=== PATIENT | male | born 1955 | race Two or more races ===

== ENCOUNTER → 2020-07-28 10:30 | Outpatient (BNVA) | payer MEDICAID, SELFPAY | PROVIDERS: PCP Student in an Organized Health Care Education/Training Program; Visit Provider Anesthesiology | DX: M96.1 Postlaminectomy syndrome, not elsewhere classified (principal); M50.30 Other cervical disc degeneration, unspecified cervical region; G58.8 Other specified mononeuropathies; G89.4 Chronic pain syndrome; M47.812 Spondylosis without myelopathy or radiculopathy, cervical region | CPT/HCPCS: 99212 ==

== ENCOUNTER 2020-08-20 09:36 | Outpatient (REF) | payer MEDICAID, SELFPAY ==
[2020-08-20 11:15] LABS: Alanine Aminotransferase 31 U/L (0-40); Albumin Level 4.1 g/dL (3.5-5.0); Alkaline Phosphatase 48 U/L (39-117); Anion Gap 11 (12-20); Aspartate Amino Transferase 28 U/L (5-37); Bilirubin Direct 0.2 mg/dL (0.0-0.5); Bilirubin Total 0.6 mg/dL (0.0-1.0); Blood Urea Nitrogen 28 mg/dL (9-16); Calcium 9.2 mg/dL (8.4-10.2); Carbon Dioxide 29 mmol/L (22-29); Chloride 103 mmol/L (96-108); Cholesterol 202 mg/dL; Estimated Glomerular Filt Rate 50; Glucose Random 101 mg/dL (60-115); HDL Cholesterol 81 mg/dL; LDL Cholesterol Calculated 108 mg/dl; Potassium 4.3 mmol/l (3.3-5.1); Sodium 139 mmol/L (135-145); Total Protein 7.2 g/dL (6.5-8.0); Triglycerides 67 mg/dL
[2020-08-20 11:34] LABS: Vitamin D 25-OH Total 19.9 ng/mL (>30)
== END 2020-08-20 09:37 | disposition home or self-care (01) ==
LOC: HO.LAB 09:36
PROVIDERS: Absent Provider Student in an Organized Health Care Education/Training Program; PCP Student in an Organized Health Care Education/Training Program; Visit Provider Internal Medicine
DX: I10 Essential (primary) hypertension (principal); Z20.828 Contact with and (suspected) exposure to other viral communicable diseases
CPT/HCPCS: 80048; 80061; 80076; 82306; C9803; U0003

== ENCOUNTER 2020-09-07 05:36 | Outpatient (REF) | payer MEDICARE, MEDICAID, SELFPAY ==
--- NOTE | 2020-09-07 08:46 | FL_ITS ---
EXAMINATION: XR FLUOROSCOPY WITH IMAGES CLINICAL INFORMATION: M96.1 - Postlaminectomy syndrome, not elsewhere classified COMPARISON: MRI cervical spine 08/12/2019 TECHNIQUE: Fluoroscopy performed by Aicha Renteria NP. Fluoroscopy time: 1.1 minutes DAP: 4.3 Gycm2 Images: 6 FINDINGS: There are bilateral spinal needles overlying outer aspect of the mid to lower cervical neural foramina, 3 on left and 2 (or 3) on right. There is variable contrast in the nerve sheaths and paraspinal soft tissues. There is some transforaminal epidural extension. No visible vascular communication. There is hardware lower cervical spine consistent with discectomy as noted on MRI. FL/FL guidance in treatment room IMPRESSION: Fluoroscopy for pain management procedures.
== END 2020-09-07 05:37 | disposition home or self-care (01) ==
LOC: HO.RADIR 05:36
PROVIDERS: Visit Provider Anesthesiology
DX: M96.1 Postlaminectomy syndrome, not elsewhere classified (principal); M50.30 Other cervical disc degeneration, unspecified cervical region; G58.8 Other specified mononeuropathies; G89.4 Chronic pain syndrome; M47.812 Spondylosis without myelopathy or radiculopathy, cervical region
CPT/HCPCS: 64490; 64491; J3300; Q9967

== ENCOUNTER 2020-10-25 09:34 | Outpatient (REF) | payer MEDICARE, MEDICAID, SELFPAY | END 2020-10-25 09:35 | disposition home or self-care (01) | LOC: HO.LAB 09:34 | PROVIDERS: Visit Provider Internal Medicine | DX: Z20.822 Contact with and (suspected) exposure to COVID-19 (principal) | CPT/HCPCS: 36415; C9803; U0003; U0005 ==

== ENCOUNTER 2022-10-12 10:08 | Outpatient (REF) | payer MEDICARE, MEDICAID, SELFPAY ==
--- NOTE | ~2022-10-12 | XR_ITS ---
EXAMINATION: XR CERVICAL SPINE CLINICAL INFORMATION: Chronic neck pain worsening past month. No known trauma. COMPARISON: MR cervical spine 08/12/2019 TECHNIQUE: Cervical spine is imaged in 7 views including oblique projections. FINDINGS: There has been prior anterior cervical discectomy with fusion and hardware C5-C6. Hardware is intact. No destructive process or osteolysis. No prevertebral soft tissue swelling. No cervical vertebral compression or destructive process. The odontoid appears intact. There are degenerative disc changes C4-C5 with disc narrowing and anterior and posterior spurring and mild retrolisthesis. There are also degenerative disc changes at C6-C7 with disc narrowing and vertebral spurring. Oblique views show variable foraminal spurring bilateral C4 and bilateral C5 and borderline left C6. XR/XR cervical spine 5V IMPRESSION: -Status post anterior cervical discectomy and fusion C5-C6. Hardware intact. -No destructive process or osteolysis. Prevertebral soft tissues are unremarkable. -Degenerative disc changes C4-C5 and C6-C7. Mild retrolisthesis C4-C5. -Scattered foraminal spurring. Bilateral foraminal spurring.
== END 2022-10-12 10:09 | disposition home or self-care (01) ==
LOC: HO.XRAY 10:08
PROVIDERS: PCP Student in an Organized Health Care Education/Training Program; Visit Provider General Practice
DX: M54.2 Cervicalgia (principal)
CPT/HCPCS: 72050

== ENCOUNTER 2023-04-20 06:04 | Outpatient (REF) | payer MEDICARE, MEDICAID, SELFPAY | END 2023-04-20 06:05 | disposition home or self-care (01) | LOC: HO.HOSX 06:04 | PROVIDERS: Visit Provider Physician Assistant | DX: Z13.89 Encounter for screening for other disorder (principal) ==

== ENCOUNTER 2023-04-20 09:51 | Outpatient (REF) | payer MEDICARE, MEDICAID, SELFPAY ==
--- NOTE | ~2023-04-20 | XR_ITS ---
EXAMINATION: XR SHOULDER, RIGHT CLINICAL INFORMATION: Acute pain. COMPARISON: None available. TECHNIQUE: AP external rotation, Grashey, scapular Y, and axillary views of the right shoulder. FINDINGS: Bony alignment and mineralization are normal. There is mild osteoarthritic change of the right glenohumeral joint. The acromioclavicular and coracoclavicular intervals are normal. No fracture or dislocation is seen. There is no abnormal soft tissue calcification or foreign body. No right pneumothorax is seen. XR/XR shoulder RT min 2V IMPRESSION: 1. There is mild osteoarthritic change of the right glenohumeral joint. 2. No fracture or dislocation is seen.
== END 2023-04-20 09:52 | disposition home or self-care (01) ==
LOC: HO.HMGCX 09:51
PROVIDERS: PCP Student in an Organized Health Care Education/Training Program; Visit Provider Internal Medicine
DX: M25.511 Pain in right shoulder (principal)
CPT/HCPCS: 73030

== ENCOUNTER 2023-05-31 12:09 | Outpatient (REF) | payer MEDICARE, MEDICAID, SELFPAY ==
[2023-05-31 13:55] LABS: Alanine Aminotransferase 23 U/L (0-40); Albumin Level 4.2 g/dL (3.5-5.0); Alkaline Phosphatase 42 U/L (39-117); Anion Gap 13 (12-20); Aspartate Amino Transferase 25 U/L (5-37); Bilirubin Total 0.5 mg/dL (0.0-1.0); Blood Urea Nitrogen 18 mg/dL (9-16); Calcium 9.7 mg/dL (8.4-10.2); Carbon Dioxide 26 mmol/L (22-29); Chloride 106 mmol/L (96-108); Estimated Glomerular Filt Rate 60; Glucose Random 96 mg/dL (60-115); Potassium 4.4 mmol/L (3.3-5.1); Sodium 141 mmol/L (135-145); Total Protein 7.6 g/dL (6.5-8.0)
== END 2023-05-31 12:10 | disposition home or self-care (01) ==
LOC: HO.HHCL 12:09
PROVIDERS: Visit Provider Student in an Organized Health Care Education/Training Program
DX: R79.89 Other specified abnormal findings of blood chemistry (principal)
CPT/HCPCS: 36415; 80053

== ENCOUNTER 2023-07-13 13:02 | Outpatient (REF) | payer MEDICARE, MEDICAID, SELFPAY ==
--- NOTE | ~2023-07-13 | MR_ITS ---
EXAMINATION: MR SHOULDER WITHOUT CONTRAST, RIGHT CLINICAL INFORMATION: Chronic worsening pain in the right arm below the shoulder. Rule out tear or cyst. COMPARISON: Radiograph dated 04/12/2023. TECHNIQUE: MRI of the shoulder without contrast was performed on a high-field scanner. FINDINGS: ROTATOR CUFF: A full-thickness tear of the supraspinatus tendon measures 3 cm AP with medial retraction of torn fibers by 4 cm between the level of the glenoid fossa and greater tuberosity. The small insertional subscapularis tendon tear measures approximately 6 x 6 mm in area with mild associated tendinosis. There is a small insertional partial tear of the cephalad fibers of the subscapularis tendon measuring approximately 6 x 6 mm in area. Mild subscapularis and infraspinatus tendinosis. There is mild supraspinatus muscle atrophy and grade 1 fatty replacement. BICEPS: Normal. CORACOACROMIAL ARCH: The undersurface of the acromion is hooked with an anterior subacromial spur. Moderate acromioclavicular osteoarthritis. LABRUM/CAPSULE: There is a small focal undersurface tear of the posterosuperior labrum between the 10 o'clock position and 9 o'clock position. A subtle tear is also suspected between the anteroinferior 4 o'clock position and inferior 6 o'clock position with a small 3 mm paralabral cyst. There is capsular thickening and edema signal at the axillary pouch involving the inferior glenohumeral ligament. GLENOHUMERAL JOINT/MARROW: No fractures. Tiny glenoid osteophytes. Mild focal chondral thinning is present at the glenoid rim posterosuperiorly. There is cortical irregularity at the greater tuberosity posterosuperiorly. Small joint effusion. MR/MR shoulder RT wo con IMPRESSION: 1. A 3 x 4 cm full-thickness insertional tear of the supraspinatus tendon with mild muscle atrophy. 2. Small 6 x 6 mm insertional partial tear of the cephalad fibers of the subscapularis tendon. 3. Hooked acromial undersurface with an anterior subacromial spur. 4. Moderate acromioclavicular and minimal glenohumeral osteoarthritis. 5. Capsular thickening and edema at the axillary pouch. This is not specific but can be seen with adhesive capsulitis provided the appropriate clinical suspicion.
== END 2023-07-13 13:03 | disposition home or self-care (01) ==
LOC: HO.MRI 13:02
PROVIDERS: PCP Student in an Organized Health Care Education/Training Program; Visit Provider Student in an Organized Health Care Education/Training Program
DX: M79.601 Pain in right arm (principal)
CPT/HCPCS: 73221

== ENCOUNTER 2023-08-01 09:44 | Outpatient (AMB) | payer MEDICARE, SELFPAY ==
--- NOTE | 2023-08-01 09:58 | A.OFFVIS_ITS ---
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 States he has been experiencing bicep pain for about 1 month. No injury or fall he can recall. States he is limited ROM and affects his daily living. Seen with his PCP who referred hm to wound care specialist. Patient denies shoulder pain, numbness or tingling in fingers. States his shoulder is fine. Patient also had a shoulder MRI. Allergies No Known Allergies Allergy (Verified 08/01/23 10:05) HPI HPI Comments History of Present Illness Details 1 month of acute right arm pain. No fall s. No inciting injuries. Right handed. Unemployed. Denies any pain prior to onset. Limited ROM. No numbness. MRI already done, shows full thickness supraspinatus tear. Treatment done so far: tylenol no PT or injections yet ROS Poor balance Lives alone. Drives. [facility] Medical History (Updated 08/01/23 @ 10:47 by Vannesa De La Rosa MD) DJD of right shoulder Complete rotator cuff tear or rupture of right shoulder, not specified as traumatic Lymph node enlargement Arthropathy of cervical facet joint Chronic pain syndrome Other specified mononeuropathies Degeneration, intervertebral disc, cervical Postlaminectomy syndrome, cervical Social History (Updated 08/01/23 @ 10:07 by Angeles Rangel [facility]) Current occupational status: disabled Current occupation: right hand Review of Systems Const All systems reviewed & are unremarkable except as noted in HPI and below Physical Exam Vital Signs: BMI result Body Mass Index 34.5 Constitutional: Patient appears to be in no acute distress, well nourished and well developed. MSK: Inspection reveals appropriate head and neck positioning. No pain with palpation over the neck musculature. Cervical ROM was full. Spurling's sign negative. Limited right shoulder a abduction and flexion up to 60 degrees only No ligamentous laxity or crepitance. No increased effusion. Empty can test is positive right. Drop arm test is negative. Speed's test is negative. Neer's test is positive right. Hawkin's test is positive. Strength is 5/5 in all muscle groups tested. No increased tone noted. Neurological: Neurologic examination of the upper and lower extremities was nonfocal with intact sensation, muscle stretch reflexes and without focal motor deficits . Marquez?s negative bilaterally. Gait is non-antalgic without loss of balance. Office Procedures Joint Injection/Drain Joint Injection/Drain Details: Consent was obtained. The distal, lateral, and posterior edges of the right acromion are palpated. Area is cleansed with betadine solution. A 27 gauge needl e is inserted just inferior to the posterolateral edge of the acromion. The needle is directed toward the opposite chest. A solution containing [40 mg] Kenalog and [3 ml] of 2% Lidocaine is injected. Patient tolerated procedure well without complications. Post-injection instructions given. Primary Site: right shoulder Injected: 40 mg of, Kenalog and with 3 mL of (2% lidocaine) Procedure: The patient tolerated the procedure well Coding 80323 - Large joint Procedure code (CPT) selection complete Results Reviewed Results Reviewed: [place] [address] Magnetic Resonance Report Signed Patient: David Joe MR#: [id number] : 1955 Acct:[id number] Age/Sex: 67 / M ADM Date: 07/13/23 Loc: HO.MRI Attending Dr: Merline Melara MD Ordering Physician: Merline Carrion MD Date of Service: 07/13/23 Procedure(s): MR shoulder RT wo con Accession Number(s): [id number] cc: Dayanna Smith MD; Merline Carrion MD~ EXAMINATION: MR SHOULDER WITHOUT CONTRAST, RIGHT CLINICAL INFORMATION: Chronic worsening pain in the right arm below the shoulder. Rule out tear or cyst. COMPARISON: Radiograph dated 04/12/2023. TECHNIQUE: MRI of the shoulder without contrast was performed on a high-field scanner. FINDINGS: ROTATOR CUFF: A full-thickness tear of the supraspinatus tendon measures 3 cm AP with medial retraction of torn fibers by 4 cm between the level of the glenoid fossa and greater tuberosity. The small insertional subscapularis tendon tear measures approximately 6 x 6 mm in area with mild associated tendinosis. There is a small insertional partial tear of the cephalad fibers of the subscapularis tendon measuring approximately 6 x 6 mm in area. Mild subscapularis and infraspinatus tendinosis. There is mild supraspinatus muscle atrophy and grade 1 fatty replacement. BICEPS: Normal. CORACOACROMIAL ARCH: The undersurface of the acromion is hooked with an anterior subacromial spur. Moderate acromioclavicular osteoarthritis. LABRUM/CAPSULE: There is a small focal undersurface tear of the posterosuperior labrum between the 10 o'clock position and 9 o'clock position. A subtle tear is also suspected between the anteroinferior 4 o'clock position and inferior 6 o'clock position with a small 3 mm paralabral cyst. There is capsular thickening and edema signal at the axillary pouch involving the inferior glenohumeral ligament. GLENOHUMERAL JOINT/MARROW: No fractures. Tiny glenoid osteophytes. Mild focal chondral thinning is present at the glenoid rim posterosuperiorly. There is cortical irregularity at the greater tuberosity posterosuperiorly. Small joint effusion. MR/MR shoulder RT wo con IMPRESSION: 1. A 3 x 4 cm full-thickness insertional tear of the supraspinatus tendon with mild muscle atrophy. 2. Small 6 x 6 mm insertional partial tear of the cephalad fibers of the subscapularis tendon. 3. Hooked acromial undersurface with an anterior subacromial spur. 4. Moderate acromioclavicular and minimal glenohumeral osteoarthritis. 5. Capsular thickening and edema at the axillary pouch. This is not specific but can be seen with adhesive capsulitis provided the appropriate clinical suspicion. [facility] [address] [place] [address] [place] [id number] XRay Report Signed Patient: David Joe MR#: [id number] : 1955 Acct:[id number] Age/Sex: 67 / M ADM Date: 04/20/23 Loc: HO.HMGCX Attending Dr: Tate Neff MD Ordering Physician: Emily Newell PA-C Date of Service: 04/20/23 Procedure(s): XR shoulder RT min 2V Accession Number(s): [id number] cc: Emily Newell PA-C~ EXAMINATION: XR SHOULDER, RIGHT CLINICAL INFORMATION: Acute pain. COMPARISON: None available. TECHNIQUE: AP external rotation, Grashey, scapular Y, and axillary views of the right shoulder. FINDINGS: Bony alignment and mineralization are normal. There is mild osteoarthritic change of the right glenohumeral joint. The acromioclavicular and coracoclavicular intervals are normal. No fracture or dislocation is seen. There is no abnormal soft tissue calcification or foreign body. No right pneumothorax is seen. XR/XR shoulder RT min 2V IMPRESSION: 1. There is mild osteoarthritic change of the right glenohumeral joint. 2. No fracture or dislocation is seen. I reviewed records from the following: Pain Management PCP Assessment & Plan Assessment & Plan (1) Complete rotator cuff tear or rupture of right shoulder, not specified as traumatic: Code(s): M75.121 - Complete rotator cuff tear or rupture of right shoulder, not specified as traumatic Qualifiers: Rotator cuff tear trauma status: nontraumatic Qualified Code(s): M75.121 - Complete rotator cuff tear or rupture of right shoulder, not specified as traumatic (2) DJD of right shoulder: Code(s): M19.011 - Primary osteoarthritis, right shoulder Qualifiers: Osteoarthritis type: primary Qualified Code(s): M19.011 - Primary osteoarthritis, right shoulder Plan Full thickness tear on right supraspinatus with arthritic changes on AC and GH. Pain is 10/10 and he would like injection for relief today. Start PT. Referring him to Dr. Dickerson to discuss surgical options. Assessment and plan discussed with patient, and patient was agreeable. All questions were answered thoroughly. Vannesa De La Rosa MD, BLAIR Board Certified, [place] [employer] and [employer] (ABPMR) Board Certified, [place] [employer] Electro[employer] (ABEM) Orders: Orders PT Evaluation and Treatment Today M19.011 - Primary osteoarthritis, right shoulder, M75.121 - Complete rotator cuff tear or rupture of right shoulder, not specified as traumatic AMB Joint Injection/Aspiration Today M19.011 - Primary osteoarthritis, right shoulder, M75.121 - Complete rotator cuff tear or rupture of right shoulder, not specified as traumatic Referrals Orthopedics Referral M19.011 - Primary osteoarthritis, right shoulder, M75.121 - Complete rotator cuff tear or rupture of right shoulder, not specified as traumatic Coding Level of Care Code New Pt Level 4 (96653) Diagnoses Nontraumatic complete tear of right rotator cuff M75.121 Rotator cuff tear trauma status: nontraumatic Primary osteoarthritis of right shoulder M19.011 Osteoarthritis type: primary CPT Codes Coding - 34773 Large joint: 74227 - Large joint ([id number])
[2023-08-01 10:01] VITALS: BMI 34.5
== END 2023-08-01 10:36 | disposition home or self-care (01) ==
PROVIDERS: PCP Student in an Organized Health Care Education/Training Program; Visit Provider Physical Medicine & Rehabilitation
DX: M75.121 Complete rotator cuff tear or rupture of right shoulder, not specified as traumatic (principal); M19.011 Primary osteoarthritis, right shoulder
CPT/HCPCS: 20610; 99204

== ENCOUNTER → 2023-08-01 09:44 | Outpatient (BNVA) | payer OTHER, SELFPAY | PROVIDERS: PCP Student in an Organized Health Care Education/Training Program; Visit Provider Physical Medicine & Rehabilitation | DX: M19.011 Primary osteoarthritis, right shoulder (principal); M75.121 Complete rotator cuff tear or rupture of right shoulder, not specified as traumatic; M96.1 Postlaminectomy syndrome, not elsewhere classified; G89.4 Chronic pain syndrome | CPT/HCPCS: 20610; 99202; J3301 ==

== ENCOUNTER 2023-08-13 11:42 | Outpatient (AMB) | payer MEDICARE, SELFPAY ==
--- NOTE | 2023-08-13 12:12 | MHC.OFFVIS ---
Intake Intake Visit Reasons: ov- discuss surgery for right shoulder Allergies No Known Allergies Allergy (Verified 08/01/23 10:05) HPI ov- discuss surgery for right shoulder HPI Details is a 67 year old man who presents to discuss his right RTC tear. He complains of pain in his right shoulder & in his neck. He has shoulder pain with daily activity, worse with overhead activity and at night. He received a shoulder injection by Dr. Lakhani on 08/01/23, with minimal relief, and a course of PT was ordered. He has a hx of cervical postlaminectomy syndrome and chronic pain syndrome. [facility], [facility] Medical History (Updated 08/01/23 @ 10:47 by Vannesa De La Rosa MD) DJD of right shoulder Complete rotator cuff tear or rupture of right shoulder, not specified as traumatic Lymph node enlargement Arthropathy of cervical facet joint Chronic pain syndrome Other specified mononeuropathies Degeneration, intervertebral disc, cervical Postlaminectomy syndrome, cervical Social History (Updated 08/01/23 @ 10:07 by Angeles Rangel [facility]) Current occupational status: disabled Current occupation: right hand Review of Systems Const All systems reviewed & are unremarkable except as noted in HPI and below Physical Exam Const General: no acute distress, alert and awake Orientation/consciousness: patient oriented x3 HEENT Head: Yes normocephalic and Yes atraumatic Eyes EOM: EOMs intact bilaterally Resp Effort & Inspection: normal respiratory effort and able to speak in complete sentences Cardio Jugular venous distension: no JVD Skin General skin exam: turgor normal Rashes: no rashes Neuro General: patient oriented x3 Extrem Other: Right Shoulder: 4+/5 EC 30/90/130/S1 Neg liftoff +H/N Psych Appearance: grossly normal Affect: normal affect Attitude: cooperative Results Reviewed Results Reviewed: I personally reviewed relevant MR images 1. A 3 x 4 cm full-thickness insertional tear of the supraspinatus tendon with mild muscle atrophy. 2. Small 6 x 6 mm insertional partial tear of the cephalad fibers of the subscapularis tendon. 3. Hooked acromial undersurface with an anterior subacromial spur. 4. Moderate acromioclavicular and minimal glenohumeral osteoarthritis. 5. Capsular thickening and edema at the axillary pouch. This is not specific but can be seen with adhesive capsulitis provided the appropriate clinical suspicion. Assessment & Plan Assessment & Plan (1) Complete rotator cuff tear or rupture of right shoulder, not specified as traumatic: Code(s): M75.121 - Complete rotator cuff tear or rupture of right shoulder, not specified as traumatic Qualifiers: Rotator cuff tear trauma status: nontraumatic Qualified Code(s): M75.121 - Complete rotator cuff tear or rupture of right shoulder, not specified as traumatic Plan: This is a 67 year old ma with a full-thickness suprapsinatus tear of the right shoulder. he has pain with daily activity, worse with overhead activity and at night. He feels limited in his ADLs and found minimal relief from his steroid injection on 08/01/[address] Lakhani. I discussed his diagnosis and treatment options. I recommend a right shoulder RTC repair. I discussed the risks, benefits, and alternatives including, but not limited to, the risk of pain, infection, stiffness, need for further surgery as well as potential medical complications such as blood clots, pulmonary embolism and cardiac complications. I discussed the recovery timeline and process as well as the importance of PT. is a good candidate for this surgery, and he wishes to proceed with this decision. He will speak with Loli to schedule this procedure. (2) Chronic pain syndrome: Code(s): G89.4 - Chronic pain syndrome (3) Postlaminectomy syndrome, cervical: Code(s): M96.1 - Postlaminectomy syndrome, not elsewhere classified Plan Scribed for Denis Dickerson MD by Umair Tolbert, medical program specialist, on 08/13/23 at 12:15 PM, EST. Coding Level of Care Code Est Pt Level 4 (02235) Diagnoses Nontraumatic complete tear of right rotator cuff M75.121 Rotator cuff tear trauma status: nontraumatic Chronic pain syndrome G89.4 Postlaminectomy syndrome, cervical M96.1
== END 2023-08-13 12:22 | disposition home or self-care (01) ==
PROVIDERS: PCP Student in an Organized Health Care Education/Training Program; Visit Provider Orthopaedic Surgery
DX: M75.121 Complete rotator cuff tear or rupture of right shoulder, not specified as traumatic (principal); G89.4 Chronic pain syndrome; M96.1 Postlaminectomy syndrome, not elsewhere classified
CPT/HCPCS: 99214

== ENCOUNTER → 2023-08-13 11:42 | Outpatient (BNVA) | payer MEDICARE, SELFPAY | PROVIDERS: PCP Student in an Organized Health Care Education/Training Program; Visit Provider Orthopaedic Surgery | DX: M75.121 Complete rotator cuff tear or rupture of right shoulder, not specified as traumatic (principal); M96.1 Postlaminectomy syndrome, not elsewhere classified; G89.4 Chronic pain syndrome | CPT/HCPCS: 99212 ==

== ENCOUNTER 2023-10-03 | Outpatient (REF) | payer MEDICARE, SELFPAY ==
--- NOTE | 2023-10-03 | ECG_ITS ---
Test Reason : preop Blood Pressure : / mmHG Vent. Rate : 070 BPM Atrial Rate : 070 BPM P-R Int : 150 ms QRS Dur : 098 ms QT Int : 428 ms P-R-T Axes : 041 -12 029 degrees QTc Int : 462 ms Normal sinus rhythm Normal ECG No previous ECGs available Referred By: Giuliana Hammond Electronically Signed By:NI BENITES MD
[2023-10-03 13:04] VITALS: BP 119/79; PULSE 73; RESP 16; O2SAT 97; BMI 32.5
--- NOTE | 2023-10-03 13:38 | HO.ANESPROP2 ---
HPI - Anesthesia Eval Consult details Narrative: 68yo M for Right Arthroscopic Rotator Cuff Repair, 10/17/23 No recent illness No CP/SOB with walking/housework PMFSH Active Problems Active Problems: All Active Problems (Updated 10/03/23 @ 13:28 by Eveline Johnson RN) DJD of right shoulder (Acute) Complete rotator cuff tear or rupture of right shoulder, not specified as traumatic (Acute) Lymph node enlargement (Acute) Arthropathy of cervical facet joint (Acute) Chronic pain syndrome (Acute) Other specified mononeuropathies (Acute) Degeneration, intervertebral disc, cervical (Acute) Postlaminectomy syndrome, cervical (Acute) Past Medical History Medical History Full dentures Elevated cholesterol Neck pain HTN (hypertension) DJD of right shoulder Complete rotator cuff tear or rupture of right shoulder, not specified as traumatic Lymph node enlargement Arthropathy of cervical facet joint Chronic pain syndrome Other specified mononeuropathies Degeneration, intervertebral disc, cervical Postlaminectomy syndrome, cervical Family History Family history of problems with anesthesia: No Surgical History Surgical History Hx of appendectomy Hx of cervical discectomy History of Problems with Anesthesia: No Social History Social History Household Members: None Housing: Apartment Are you a primary school child care attendant to a significant other at home: No Do you presently have visiting nurse or other home services: No 75 years or older and lives alone: No Patient Tobacco Use Status: Never used Tobacco Current occupational status: disabled Current occupation: right hand Meds Allergies Allergy/AdvReac Type Severity Reaction Status Date / Time No Known Allergies Allergy Verified 08/01/23 10:05 Home Medications Medication Instructions Recorded Confirmed Last Taken Type albuterol sulfate 90 mcg/actuation 2 puff inhalation QID PRN 08/01/23 10/03/23 Unknown History aerosol inhaler Shortness Of Breath Or Wheezing gabapentin 300 mg capsule 300 mg PO BID 08/01/23 10/03/23 Unknown History hydrochlorothiazide 25 mg tablet 25 mg PO DAILY 08/01/23 10/03/23 Unknown History ibuprofen 600 mg tablet 600 mg PO TID 08/01/23 10/03/23 Unknown History losartan 100 mg tablet 100 mg PO QAM 08/01/23 10/03/23 Unknown History meclizine 25 mg tablet 25 mg PO DAILY PRN Vertigo 08/01/23 10/03/23 Unknown History meloxicam 7.5 mg tablet 7.5 mg PO BID 08/01/23 10/03/23 Unknown History simvastatin 20 mg tablet 20 mg PO BEDTIME 08/01/23 10/03/23 Unknown History trazodone 100 mg tablet 100 mg PO DAILY 08/01/23 10/03/23 Unknown History Exam Height,Weight and Vital Signs: Height 5 ft 9 in Weight 99.79 kg Last Vital Signs Pulse 73 10/03/23 13:04 Resp 16 10/03/23 13:04 BP 119/79 10/03/23 13:04 Pulse Ox 97 10/03/23 13:04 O2 Del Method Room Air 10/03/23 13:04 Airway Mallampati Class: IV TM Dist: >3cm Neck ROM: Full Denture: Upper and Lower Heart: RRR Lungs: CTAB Assessment and Plan Assessment Anesthesia Assessment: Anesthesia Plan Discussed and PAT Visit Final Anesthetic Review Family History of Problems with Anesthesia: No History of Problems with Anesthesia: No
== END 2023-10-03 00:01 ==
LOC: HO.PAT
PROVIDERS: PCP Student in an Organized Health Care Education/Training Program; Visit Provider Orthopaedic Surgery
DX: Z01.818 Encounter for other preprocedural examination (principal); I10 Essential (primary) hypertension; M75.121 Complete rotator cuff tear or rupture of right shoulder, not specified as traumatic
CPT/HCPCS: 93005

== ENCOUNTER → 2023-10-03 14:02 | Outpatient (BNV) | payer MEDICARE, SELFPAY | PROVIDERS: PCP Student in an Organized Health Care Education/Training Program; Visit Provider Internal Medicine Cardiovascular Disease | DX: Z01.818 Encounter for other preprocedural examination (principal); M75.121 Complete rotator cuff tear or rupture of right shoulder, not specified as traumatic | CPT/HCPCS: 93010 ==

== ENCOUNTER 2023-10-12 10:52 | Outpatient (AMB) | payer MEDICARE, SELFPAY ==
--- NOTE | 2023-10-12 11:13 | MHC.OFFVIS ---
Intake Vital Signs 10/12/23 11:14 Height 5 ft 7 in Weight 220 lb BMI 34.5 Intake Visit Reasons: Pre-Rt Shld RTC Repair 10/17 Intake Note: Theron is a 68 year old right hand dominant, german speaking male who presents today for a pre operative appointment as he is booked for a Right Shoulder RTC Repair on 10/17/23. Allergies No Known Allergies Allergy (Verified 08/01/23 10:05) HPI Pre-Rt Shld RTC Repair 10/17 HPI Details is a 68 year old man who presents to discuss his right RTC tear. He is scheduled for a RTC repair on 10/17/23. He complains of pain in his right shoulder & in his neck. He has shoulder pain with daily activity, worse with overhead activity and at night. He denies any changes in his symptoms or medical history. He has a hx of cervical postlaminectomy syndrome and chronic pain syndrome. [facility] Medical History Full dentures Elevated cholesterol Neck pain HTN (hypertension) DJD of right shoulder Complete rotator cuff tear or rupture of right shoulder, not specified as traumatic Lymph node enlargement Arthropathy of cervical facet joint Chronic pain syndrome Other specified mononeuropathies Degeneration, intervertebral disc, cervical Postlaminectomy syndrome, cervical Surgical History Hx of appendectomy Hx of cervical discectomy Social History Household Members: None Housing: Apartment Are you a primary ambulatory care to a significant other at home: No Do you presently have visiting nurse or other home services: No 75 years or older and lives alone: No Patient Tobacco Use Status: Never used Tobacco Current occupational status: disabled Current occupation: right hand Review of Systems Const All systems reviewed & are unremarkable except as noted in HPI and below Physical Exam Vital Signs: BMI result Body Mass Index 34.5 Const General: no acute distress, alert and awake Orientation/consciousness: patient oriented x3 HEENT Head: Yes normocephalic and Yes atraumatic Eyes EOM: EOMs intact bilaterally Resp Effort & Inspection: normal respiratory effort and able to speak in complete sentences Cardio Jugular venous distension: no JVD Skin General skin exam: turgor normal Rashes: no rashes Neuro General: patient oriented x3 Extrem Other: ER to 45 + H/N 4/5 empty can Psych Appearance: grossly normal Affect: normal affect Attitude: cooperative Results Reviewed Results Reviewed: I personally reviewed the MR images. A 3 x 4 cm full-thickness insertional tear of the supraspinatus tendon with mild muscle atrophy. 2. Small 6 x 6 mm insertional partial tear of the cephalad fibers of the subscapularis tendon. 3. Hooked acromial undersurface with an anterior subacromial spur. 4. Moderate acromioclavicular and minimal glenohumeral osteoarthritis. 5. Capsular thickening and edema at the axillary pouch. This is not specific but can be seen with adhesive capsulitis provided the appropriate clinical suspicion. Assessment & Plan Assessment & Plan (1) Rotator cuff tear, right: Code(s): M75.101 - Unspecified rotator cuff tear or rupture of right shoulder, not specified as traumatic Plan: I had a long discussion with and is son who was on the phone from [place]. has no help at home and is forgetful. I explained the surgery to his son and to as I had before and they understood but given his forgetfullness and difficulty around the house without help it seems unwise to proceed forward with surgery. We will try to get some assistance at home and postpone surgery. I would like to see him back in 6 weeks. Plan Prepared for Denis Dickerson MD by Umair Tolbert, medical transcription editor, on 10/12/23 at 11:16 AM, EST. Coding Level of Care Code Est Pt Level 4 (50616) Diagnoses Rotator cuff tear, right M75.101
[2023-10-12 11:14] VITALS: BMI 34.5
== END 2023-10-12 11:40 | disposition home or self-care (01) ==
PROVIDERS: PCP Student in an Organized Health Care Education/Training Program; Visit Provider Orthopaedic Surgery
DX: M75.101 Unspecified rotator cuff tear or rupture of right shoulder, not specified as traumatic (principal)
CPT/HCPCS: 99213

== ENCOUNTER → 2023-10-12 10:52 | Outpatient (BNVA) | payer MEDICARE, SELFPAY | PROVIDERS: PCP Student in an Organized Health Care Education/Training Program; Visit Provider Orthopaedic Surgery | DX: M75.101 Unspecified rotator cuff tear or rupture of right shoulder, not specified as traumatic (principal) | CPT/HCPCS: 99212 ==

== ENCOUNTER 2023-11-19 11:54 | Outpatient (AMB) | payer MEDICARE, SELFPAY ==
[2023-11-19 12:07] VITALS: BMI 34.5
--- NOTE | 2023-11-19 12:07 | MHC.OFFVIS ---
Intake Vital Signs 11/19/23 12:07 Height 5 ft 7 in Weight 220 lb BMI 34.5 Intake Visit Reasons: OV-Rt Shld Pain Intake Note: 68 yr old male presents today for his follow up visit for his right Rotator cuff tear. States he continues to have pain. Patient states he will have his son on the phone to discuss next steps for his treatment. Allergies No Known Allergies Allergy (Verified 11/19/23 12:14) HPI OV-Rt Shld Pain HPI Details is a 68 year old man who presents to discuss his right RTC tear. His son is present via phone call. He complains of pain in his right shoulder & in his neck. He has shoulder pain with daily activity, worse with overhead activity and at night. At his last appointment surgery was postponed as is forgetful and has no help at home. He would need some assistance at home prior to proceeding with surgery. He has a hx of cervical postlaminectomy syndrome and chronic pain syndrome. [facility] Medical History Full dentures Elevated cholesterol Neck pain HTN (hypertension) DJD of right shoulder Complete rotator cuff tear or rupture of right shoulder, not specified as traumatic Lymph node enlargement Arthropathy of cervical facet joint Chronic pain syndrome Other specified mononeuropathies Degeneration, intervertebral disc, cervical Postlaminectomy syndrome, cervical Surgical History Hx of appendectomy Hx of cervical discectomy Social History Household Members: None Housing: Apartment Are you a primary acute care assistant to a significant other at home: No Do you presently have visiting nurse or other home services: No 75 years or older and lives alone: No Patient Tobacco Use Status: Never used Tobacco Current occupational status: disabled Current occupation: right hand Review of Systems Const All systems reviewed & are unremarkable except as noted in HPI and below Physical Exam Vital Signs: BMI result Body Mass Index 34.5 Const General: no acute distress, alert and awake Orientation/consciousness: patient oriented x3 HEENT Head: Yes normocephalic and Yes atraumatic Mouth: moist mucous membranes Eyes General: appearance normal, both eyes and all related structures EOM: EOMs intact bilaterally Chest Other: no audible wheezing. Resp Other: No audible wheezing Effort & Inspection: normal respiratory effort and able to speak in complete sentences Cardio Other: Radial pulse palpable with no rythmic abnormalities Jugular venous distension: no JVD Back/Spine/Pelvis Cervical Spine: normal cervical lordosis Skin General skin exam: turgor normal Rashes: no rashes Neuro General: patient oriented x3 Extrem Other: 35/90/130/S1 +H/N 4/5 EC neg lift off Psych Appearance: grossly normal Mental Status: mental status grossly normal Speech and movement: Normal speech and movement present Affect: normal affect Attitude: cooperative Results Reviewed Results Reviewed: I personally reviewed the MR images. 1. A 3 x 4 cm full-thickness insertional tear of the supraspinatus tendon with mild muscle atrophy. 2. Small 6 x 6 mm insertional partial tear of the cephalad fibers of the subscapularis tendon. 3. Hooked acromial undersurface with an anterior subacromial spur. 4. Moderate acromioclavicular and minimal glenohumeral osteoarthritis. 5. Capsular thickening and edema at the axillary pouch. This is not specific but can be seen with adhesive capsulitis provided the appropriate clinical suspicion. Assessment & Plan Assessment & Plan (1) Complete rotator cuff tear or rupture of right shoulder, not specified as traumatic: Code(s): M75.121 - Complete rotator cuff tear or rupture of right shoulder, not specified as traumatic Qualifiers: Rotator cuff tear trauma status: nontraumatic Qualified Code(s): M75.121 - Complete rotator cuff tear or rupture of right shoulder, not specified as traumatic Plan: This is an active 68 yo M with a symptomatic right rotator cuff tear. This has not improved with PT/injections/activity modification. I have previously discussed surgery with him and his son, who lives in [place]. His son has been worried because his father lives alone. We discussed the surgery and the post operative expectations. I explained the surgery and I discussed the risks benefits and alternatives including but not limited to the risk of pain, infection, stiffness, need for further surgery as well as potential medical complications such as blood clots, pulmonary embolism and cardiac complications. I also explained that this may not be fully repairable given the atrophy but I suspect it will be. He and his son expressed understanding and their questions were answered. Plan Prepared for Denis Dickerson MD by Umair Tolbert, biomedical repair technician, on 11/19/23 at 12:10 PM, EST. Coding Level of Care Code Est Pt Level 4 (22874) Diagnoses Nontraumatic complete tear of right rotator cuff M75.121 Rotator cuff tear trauma status: nontraumatic
== END 2023-11-19 12:52 | disposition home or self-care (01) ==
PROVIDERS: PCP Student in an Organized Health Care Education/Training Program; Visit Provider Orthopaedic Surgery
DX: M75.121 Complete rotator cuff tear or rupture of right shoulder, not specified as traumatic (principal)
CPT/HCPCS: 99214

== ENCOUNTER → 2023-11-19 11:54 | Outpatient (BNVA) | payer MEDICARE, SELFPAY | PROVIDERS: PCP Student in an Organized Health Care Education/Training Program; Visit Provider Orthopaedic Surgery | DX: M75.121 Complete rotator cuff tear or rupture of right shoulder, not specified as traumatic (principal) | CPT/HCPCS: 99212 ==

== ENCOUNTER 2023-12-20 10:57 | Outpatient (AMB) | payer MEDICARE, SELFPAY ==
[2023-12-20 11:17] VITALS: BMI 34.5
--- NOTE | 2023-12-20 11:17 | A.OFFVIS_ITS ---
Intake Vital Signs 12/20/23 11:17 Height 5 ft 7 in Weight 220 lb BMI 34.5 Intake Visit Reasons: Preop RT RTC repair 12/26/23 NE Intake Note: is a 68 year old male who presents today for a pre op appointment for his RT RTC repair 12/26/23 NE. Allergies No Known Allergies Allergy (Verified 12/20/23 11:17) HPI Preop RT RTC repair 12/26/23 NE HPI Details 68-year-old right hand dominant male who presents in the office today for his preoperative history and physical exam prior to a right shoulder rotator cuff repair to be performed on 12/26/[address] Denis Dickerson. Patient has no known allergy history. Patient is currently taking, as follows: -Albuterol sulfate 90 mcg/actuation 2 pu ffs QID PRN -Gabapentin 300 mg PO BID -Hydrochlorothiazide 25 mg PO daily -Ibuprofen 600 mg PO TID -Losartan 100 mg PO QAM -Meclizine 25 mg PO daily PRN -Meloxicam 7.5 mg BID -Simvastatin 20 mg PO bedtime -Trazodone 100 mg PO daily Patient has a medical history, as follows: -Full dentures -Elevated cholesterol -Hypertension -Lymph node enlargement ? left neck -Arthropathy of cervical facet joint -Chronic pain syndrome -Other specified mononeuropathies -Degeneration, intervertebral disc, cerv ical -Postlaminectomy syndrome, cervical Patient has a surgical history, as follows: -Hx of appendectomy -Hx of cervical discectomy PFSH Medical History Full dentures Elevated cholesterol Neck pain HTN (hypertension) DJD of right shoulder Complete rotator cuff tear or rupture of right shoulder, not specified as traumatic Lymph node enlargement Arthropathy of cervical facet joint Chronic pain syndrome Other specified mononeuropathies Degeneration, intervertebral disc, cervical Postlaminectomy syndrome, cervical Surgical History Hx of appendectomy Hx of cervical discectomy Social History Household Members: None Housing: Apartment Are you a primary animal care service worker to a significant other at home: No Do you presently have visiting nurse or other home services: No 75 years or older and lives alone: No Patient Tobacco Use Status: Never used Tobacco Current occupational status: disabled Current occupation: right hand Review of Systems Const All systems reviewed & are unremarkable except as noted in HPI and below Physical Exam Vital Signs: BMI result Body Mass Index 34.5 Const General: cooperative, healthy appearing and no acute distress Orientation/consciousness: patient oriented x3 HEENT Head: Yes normocephalic and Yes atraumatic Mouth: moist mucous membranes Eyes General: appearance normal, both eyes and all related structures EOM: EOMs intact bilaterally Chest Other: no audible wheezing. Resp Other: No audible wheezing Effort & Inspection: normal respiratory effort and able to speak in complete sentences Cardio Other: Radial pulse palpable with no rythmic abnormalities Jugular venous distension: no JVD Rate: regular rate Peripheral pulses: Peripheral pulses 2+ throughout GI Palpation (GI): Soft to palpation Back/Spine/Pelvis Cervical Spine: normal cervical lordosis Skin General skin exam: turgor normal Lesions: no lesions Rashes: no rashes Neuro General: patient oriented x3 Extrem Other: Right shoulder: Skin is clean and intact. 35/90/130/S1 +H/N 4/5 EC neg lift off Psych Appearance: grossly normal Mental Status: mental status grossly normal Speech and movement: Normal speech and movement present Affect: normal affect Attitude: cooperative Assessment & Plan Assessment & Plan (1) Complete rotator cuff tear or rupture of right shoulder, not specified as traumatic: Code(s): M75.121 - Complete rotator cuff tear or rupture of right shoulder, not specified as traumatic Qualifiers: Rotator cuff tear trauma status: nontraumatic Qualified Code(s): M75.121 - Complete rotator cuff tear or rupture of right shoulder, not specified as traumatic Plan Mr. Joe is a 68-year-old right hand dominant male who presents in the office today for his preoperative history and physical exam prior to a right shoulder rotator cuff repair to be performed on 12/26/[address] Denis Dickerson. Patient has no known allergy history. Patient is currently taking, as follows: -Albuterol sulfate 90 mcg/actuation 2 puffs QID PRN -Gabapentin 300 mg PO BID -Hydrochlorothiazide 25 mg PO daily -Ibuprofen 600 mg PO TID -Losartan 100 mg PO QAM -Meclizine 25 mg PO daily PRN -Meloxicam 7.5 mg BID -Simvastatin 20 mg PO bedtime -Trazodone 100 mg PO daily Patient has a medical history, as follows: -Full dentures -Elevated cholesterol -Hypertension -Lymph node enlargement ? left neck -Arthropathy of cervical facet joint -Chronic pain syndrome -Other specified mononeuropathies -Degeneration, intervertebral disc, cervical -Postlaminectomy syndrome, cervical Patient has a surgical history, as follows: -Hx of appendectomy -Hx of cervical discectomy I discussed in detail the procedure and what to expect pre and post operatively. We discussed the risks, benefits and alternatives to the surgery as well as the rehabilitation course. The risks; which include, but are not limited to infection, bleeding, nerve injury, ongoing pain, swelling, and stiffness, perioperative risk of injury to bones and soft tissues, and blood clots. I have answered all questions and with their understanding they have consented to move forward with a right shoulder rotator cuff repair to be performed on 12/26/[address] Denis Dickerson. Post operative medications was sent to the pharmacy, Oxycodone-acetaminophen 5- 325 mg (Percocet) PO Q4-6H PRN, quantity 42 tabs for 7 days and Morphine ER 15 mg (MS Contin) PO Q12H PRN, quantity 6 tabs for 3 days, while in the office today. The patient was instructed that he should obtain the prescription prior to surgery but should not consume until after the procedure; as these should only be taken for post operative pain management. Should the patient take these medications prior to surgery a refill will not be sent to the pharmacy until their scheduled refill date. Follow up will be at the post operative appointment on 01/03/2024 at 1:00 pm, or sooner if needed. Medications: New oxycodone-acetaminophen 5-325 mg Partial Fill upon patient request. 1 tab PO Q4-6H PRN 42 tabs 0RF pain 7 days morphine ER (MS Contin) Partial Fill upon patient request. 15 mg PO Q12H 6 tabs 0RF pain 3 days Patient Instructions: Scribed by Lynn Nieto medical laboratory technicians, for Emily Newell PA-C on 12/20/2023 at 11:21 am, EST. Coding Level of Care Code Global (65993) Diagnoses Nontraumatic complete tear of right rotator cuff M75.121 Rotator cuff tear trauma status: nontraumatic
== END 2023-12-20 12:06 | disposition home or self-care (01) ==
PROVIDERS: PCP Student in an Organized Health Care Education/Training Program; Visit Provider Physician Assistant
DX: M75.121 Complete rotator cuff tear or rupture of right shoulder, not specified as traumatic (principal)
CPT/HCPCS: 99024

== ENCOUNTER → 2023-12-20 10:57 | Outpatient (BNVA) | payer MEDICARE, SELFPAY | PROVIDERS: PCP Student in an Organized Health Care Education/Training Program; Visit Provider Physician Assistant | DX: M75.121 Complete rotator cuff tear or rupture of right shoulder, not specified as traumatic (principal) | CPT/HCPCS: 99212 ==

== ENCOUNTER 2023-12-26 07:22 | Day surgery (SDC) | payer MEDICARE, SELFPAY ==
[2023-12-24 07:13] VITALS: BMI 34.5
[2023-12-26] VITALS (11 sets, daily range): BP systolic 129–155; BP diastolic 70–98; PULSE 68–96; RESP 15–16; TEMP 36.3–37; O2SAT 89–99; BMI 31.9
--- NOTE | 2023-12-26 07:38 | P.CONAN_ITS ---
HPI - Anesthesia Eval Consult details Narrative: Right shoulder arthroscopic rotator cuff repair PMFSH Active Problems Active Problems: All Active Problems (Updated 10/14/23 @ 09:27 by Denis Dickerson MD) Rotator cuff tear, right (Acute) DJD of right shoulder (Acute) Complete rotator cuff tear or rupture of right shoulder, not specified as traumatic (Acute) Lymph node enlargement (Acute) Arthropathy of cervical facet joint (Acute) Chronic pain syndrome (Acute) Other specified mononeuropathies (Acute) Degeneration, intervertebral disc, cervical (Acute) Postlaminectomy syndrome, cervical (Acute) Past Medical History Medical History Asthma Full dentures Elevated cholesterol Neck pain HTN (hypertension) DJD of right shoulder Complete rotator cuff tear or rupture of right shoulder, not specified as traumatic Lymph node enlargement Arthropathy of cervical facet joint Chronic pain syndrome Other specified mononeuropathies Degeneration, intervertebral disc, cervical Postlaminectomy syndrome, cervical Family History Family history of problems with anesthesia: No Surgical History Surgical History Hx of appendectomy Hx of cervical discectomy History of Problems with Anesthesia: No Social History Social History Household Members: None Housing: Apartment Are you a primary healthcare architect to a significant other at home: No Do you presently have visiting nurse or other home services: No 75 years or older and lives alone: No Patient Tobacco Use Status: Never used Tobacco Current occupational status: disabled Current occupation: right hand Meds Allergies Allergy/AdvReac Type Severity Reaction Status Date / Time No Known Allergies Allergy Verified 12/26/23 07:54 Home Medications ?Medication ?Instructions ?Recorded ?Confirmed ?Last Taken ?Type albuterol sulfate 90 mcg/actuation 2 puff inhalation QID PRN 08/01/23 12/26/23 Unknown History aerosol inhaler Shortness Of Breath Or Wheezing gabapentin 300 mg capsule 300 mg PO BID 08/01/23 12/26/23 Unknown History hydrochlorothiazide 25 mg tablet 25 mg PO DAILY 08/01/23 12/26/23 Unknown History ibuprofen 600 mg tablet 600 mg PO TID 08/01/23 12/26/23 Unknown History losartan 100 mg tablet 100 mg PO QAM 08/01/23 12/26/23 Unknown History meclizine 25 mg tablet 25 mg PO DAILY PRN Vertigo 08/01/23 12/26/23 Unknown History meloxicam 7.5 mg tablet 7.5 mg PO BID 08/01/23 12/26/23 Unknown History simvastatin 20 mg tablet 20 mg PO BEDTIME 08/01/23 12/26/23 Unknown History trazodone 100 mg tablet 100 mg PO DAILY 08/01/23 12/26/23 Unknown History Exam Height,Weight and Vital Signs: Height 5 ft 7 in Weight 99.79 kg Airway Mallampati Class: III TM Dist: >3cm Neck ROM: Full Denture: Upper and Lower Loose/Missing/Broken Teeth: Yes Heart: [id number] Lungs: cta b/l Assessment and Plan Assessment Anesthesia Assessment: Anesthesia Plan Discussed and Chart Reviewed Final Anesthetic Review Family History of Problems with Anesthesia: No History of Problems with Anesthesia: No NPO: Yes ASA Class: III Final Preanesthetic Review: No Changes in Pt Med Stat, Meds/Allgs Chart Reviewed, Consent Obtained/Reviewed and Anes Risks/Benef Reviewed Patient Risk: Intermediate Procedure Risk: Intermediate Assessment/Block/Sedation in SS: Assess/Block/Sedation-SS Anesthetic Plan Anesthetic Plan: GA and Regional Block Disposition: Standard PACU
--- NOTE | 2023-12-26 08:29 | MHC.SHP ---
Pre-Procedural Eval Section A - 24 Hr Update-Section A only Date of Service: 12/26/23 The patient is an INPATIENT: No Changes since office visit: No Cold of Flu in the past 2 weeks, No New Medical Problems, No Changes in Medication and No Patient answered all questions The patient has been examined within 24 hours of the surgical procedure. The History & Physical has been completed within 30 days and I have reviewed it.: Yes Section B - Complete if H&P > 30 days Chief Complaint: Complete rotator cuff tear or rupture of right adela Allergies: Allergies Allergy/AdvReac Type Severity Reaction Status Date / Time No Known Allergies Allergy Verified 12/26/23 07:54 Plan I have reviewed the history and physical and performed a pertinent physical examination on my patient. No changes have occurred unless specified. Time Spent With Patient Time: Total time managing care of this patient today ____ minutes.
[2023-12-26] MEDS: Lactated Ringers 1,000 ML 50 ML IVCONT (08:38)
--- NOTE | 2023-12-26 12:07 | P.BOP_ITS ---
Brief Operative Note Date of Service: 12/26/23 Pre-op diagnosis: Right RTC tear Post-op diagnosis: same Procedure: Right RTC repair Implants: Suazo and Nephew Helacoil x 4 Surgeon: Denis Dickerson MD Anesthesia: GETA and regional Was an Plow Mechanic used for this Procedure?: Yes Plow Mechanic: Emily Newell Estimated blood loss (mL): 20 IV fluids (mL): 1,100 Pathology: none sent Condition: stable Disposition: PACU
--- NOTE | 2023-12-28 16:39 | P.OP_ITS ---
Operative Note Operative Note Date of Service: 12/26/23 Narrative: Date of Service: 12/26/23 Pre-op diagnosis: Right RTC tear Post-op diagnosis: same Procedure: Right RTC repair Implants: Suazo and Nephew Helacoil x 4 Surgeon: Denis Dickerson MD Anesthesia: GETA and regional Was an Aerial Tram Operator used for this Procedure?: Yes Aerial Tram Operator: Emily Newell Estimated blood loss (mL): 20 IV fluids (mL): 1,100 Pathology: none sent Condition: stable Disposition: PACU Procedure in detail: Patient was brought to the operating room and placed the the beach chair position. All bony prominences were well padded and the limb was prepped and draped in standard sterile fashion. A time out was called to identify proper site, proper procedure and proper surgeon. IV antibiotics per weight were administered. I began by making a posterolateral stab incision with a 15 blade. A blunt trochar was placed into the glenohumeral joint and I insufflated the joint with saline and a 30 degree arthroscope was placed. I established an outside- in anterior portal just distal to the biceps tendon. I then began my inspection of the glenohumeral joint. There was degenerative tearing of the superior labrum without biceps involvement. There were minimal cartilage changes at the inferior glenoid without humeral head changes. There was a full thickness undersurface RTC tear. The subcapularis was intact. I debrided the loose cartilage of the glenoid and the degenerative labral tearing. I then removed the trochar and entered the subacromial space. A direct lateral portal was then established and I performed a bursectomy. The cuff was then examined. There was a full thickness tear of the supraspinatus without retraction. The quality of the tissue was fair. There was, just posterior to the biceps tendon very poor tissue but the quality of the tissue improve the more posterior got. The healthy portion of the tear was mobile. I placed two medial row double loaded anchors after using a tap just adjacent to the articular cartilage and then brought the suture limbs ( 8) through the medial cuff. I then debrided the bare area down to bleeding bone and, using a cross bridge configuration, brought 4 limbs to each of two lateral 5.0 anchors. This re-approximated the cuff anatomy anatomically. Once I was satisfied with the repair final images were captured and I removed all instrumentation. A 5 mm subacromial decompression was performed. Portals were closed with nylon. Patient was placed in an abduction sling, extubated and brought to the recovery room in stable condition. There were no known complications.
== END 2023-12-26 15:27 | disposition home or self-care (01) ==
PROVIDERS: PCP Student in an Organized Health Care Education/Training Program; Visit Provider Orthopaedic Surgery
PROC: (CPT 29827; principal; 2023-12-26 10:30)
DX: M75.121 Complete rotator cuff tear or rupture of right shoulder, not specified as traumatic (principal); G89.4 Chronic pain syndrome; M19.011 Primary osteoarthritis, right shoulder; R59.0 Localized enlarged lymph nodes; M47.812 Spondylosis without myelopathy or radiculopathy, cervical region; M50.30 Other cervical disc degeneration, unspecified cervical region; G58.8 Other specified mononeuropathies; M96.1 Postlaminectomy syndrome, not elsewhere classified; I10 Essential (primary) hypertension; E78.00 Pure hypercholesterolemia, unspecified; J45.909 Unspecified asthma, uncomplicated; Z79.1 Long term (current) use of non-steroidal anti-inflammatories (NSAID); Z79.899 Other long term (current) drug therapy
CPT/HCPCS: 29827; 29826; C1713; J0131; J0171; J0690; J2250; J2704; J2795; J3010

== ENCOUNTER → 2023-12-26 07:22 | Outpatient (BNV) | payer MEDICARE, SELFPAY | PROVIDERS: PCP Student in an Organized Health Care Education/Training Program; Visit Provider Orthopaedic Surgery | DX: M75.121 Complete rotator cuff tear or rupture of right shoulder, not specified as traumatic (principal) | CPT/HCPCS: 29827 ==

== ENCOUNTER 2023-12-31 10:08 | Outpatient (AMB) | payer MEDICARE, SELFPAY ==
[2023-12-31 10:22] VITALS: BMI 31.9
--- NOTE | 2023-12-31 10:22 | A.OFFVIS_ITS ---
Intake Vital Signs 12/31/23 10:22 Height 5 ft 7 in Weight 204 lb BMI 31.9 Intake Visit Reasons: PO RT RTC repair 12/26/23 NE Intake Note: is a 68 year old male who presents today for a post-op appointment for his RT RTC repair 12/26/23. Pt report swollen and pain after surgery. Wastewater Treatment Engineer Required: Yes Wastewater Treatment Engineer Language: Greenlandic Information Interpreted: non-clinical & clinical Accompanied by: Self / Same As Patient Allergies No Known Allergies Allergy (Verified 12/31/23 10:29) HPI PO RT RTC repair 12/26/23 NE HPI Details 68-year-old male who returns to the [facility] today for post-op right RTC repair, 12/26/[address] Dickerson. He continues to have pain and swelling in his shoulder since the surgery. He is doing well otherwise and has no other concerns today. [facility] Medical History Asthma Full dentures Elevated cholesterol Neck pain HTN (hypertension) DJD of right shoulder Complete rotator cuff tear or rupture of right shoulder, not specified as traumatic Lymph node enlargement Arthropathy of cervical facet joint Chronic pain syndrome Other specified mononeuropathies Degeneration, intervertebral disc, cervical Postlaminectomy syndrome, cervical Surgical History Hx of appendectomy Hx of cervical discectomy Social History Household Members: None Housing: Apartment Are you a primary direct support professional caregiver to a significant other at home: No Do you presently have visiting nurse or other home services: No 75 years or older and lives alone: No Patient Tobacco Use Status: Never used Tobacco Current occupational status: disabled Current occupation: right hand Review of Systems Const All systems reviewed & are unremarkable except as noted in HPI and below Physical Exam Vital Signs: BMI result Body Mass Index 31.9 Extrem Other: Right shoulder: Incision clean, dry and intact. No erythema or drainage. NVI. Assessment & Plan Assessment & Plan (1) Rotator cuff tear, right: Code(s): M75.101 - Unspecified rotator cuff tear or rupture of right shoulder, not specified as traumatic Plan Dr Dcikerson was available to see the patient with me today. Sutures will remain intact till his next appointment on 01/03/24. An order for physical therapy was placed with instruction to contact us is he does not hear from them. He will see me back as planned. Orders: Orders PT Evaluation and Treatment Today M75.101 - Unspecified rotator cuff tear or rupture of right shoulder, not specified as traumatic Patient Instructions: Scribed for Laura Cedillo PA-C, by Toy Potter medical imaging technologist, on 12/31/2023 at 10:15 AM EST. ILaura PA-C, have personally reviewed and agree with the information entered by the scribe. Coding Level of Care Code Global (65845) Diagnoses Rotator cuff tear, right M75.101
== END 2023-12-31 11:28 | disposition home or self-care (01) ==
LOC: HO.HOS 10:08
PROVIDERS: PCP Family Medicine; Visit Provider Physician Assistant
DX: M75.101 Unspecified rotator cuff tear or rupture of right shoulder, not specified as traumatic (principal)
CPT/HCPCS: 99024

== ENCOUNTER → 2023-12-31 10:08 | Outpatient (BNVA) | payer MEDICARE, SELFPAY | PROVIDERS: PCP Family Medicine; Visit Provider Physician Assistant | DX: Z47.89 Encounter for other orthopedic aftercare (principal); M75.101 Unspecified rotator cuff tear or rupture of right shoulder, not specified as traumatic; Z98.890 Other specified postprocedural states | CPT/HCPCS: 99212 ==

== ENCOUNTER 2024-01-03 12:47 | Outpatient (AMB) | payer MEDICARE, SELFPAY ==
[2024-01-03 12:48] VITALS: BMI 32.4
--- NOTE | 2024-01-03 12:48 | A.OFFVIS_ITS ---
Intake Vital Signs 01/03/24 12:48 Height 5 ft 7 in Weight 207 lb BMI 32.4 Intake Visit Reasons: PO RT RTC repair 12/26/23 NE Intake Note: is a 68 year old male who presents today for a post op appointment s/p RT RTC repair 12/26/23 NE. Patient states that his pain is mild/moderate. Patient finds getting comfortable a bit challenging. Allergies No Known Allergies Allergy (Verified 01/03/24 12:52) HPI PO RT RTC repair 12/26/23 NE HPI Details 68-year-old male who presents in the off ice today 8 days status post right rotator cuff repair, which was performed on 12/26/[address] Dickerson. While in the office today the patient reports mild to moderate pain. He states finding comfort is a bit challenging. He presents in the office today not wearing the sling. [facility] Medical History Asthma Full dentures Elevated cholesterol Neck pain HTN (hypertension) DJD of right shoulder Complete rotator cuff tear or rupture of right shoulder, not specified as traumatic Lymph node enlargement Arthropathy of cervical facet joint Chronic pain syndrome Other specified mononeuropathies Degeneration, intervertebral disc, cervical Postlaminectomy syndrome, cervical Surgical History Hx of appendectomy Hx of cervical discectomy Social History Household Members: None Housing: Apartment Are you a primary youth care professional to a significant other at home: No Do you presently have visiting nurse or other home services: No 75 years or older and lives alone: No Patient Tobacco Use Status: Never used Tobacco Current occupational status: disabled Current occupation: right hand Review of Systems Const All systems reviewed & are unremarkable except as noted in HPI and below Physical Exam Vital Signs: BMI result Body Mass Index 32.4 Const General: cooperative, healthy appearing and no acute distress Resp Effort & Inspection: normal respiratory effort and able to speak in complete sentences Cardio Rate: regular rate Peripheral pulses: Peripheral pulses 2+ throughout GI Palpation (GI): Soft to palpation Skin Lesions: no lesions Rashes: no rashes Extrem Other: Right shoulder: Incision site is clean, dry, and intact. Sutures intact. No surrounding erythema or drainage. No signs of infection. FF and ABD 45 degrees ER to neutral. NVI. Assessment & Plan Assessment & Plan (1) S/P right rotator cuff repair: Onset Date: ~12/26/23 Comment: Dr. Denis Dickerson Code(s): Z98.890 - Other specified postprocedural states Plan Mr. Joe is a 68-year-old male who presents in the office today 8 days status post right rotator cuff repair, which was performed on 12/26/[address] Dickerson. While in the office today the patient reports mild to moderate pain. He states finding comfort is a bit challenging. He presents in the office today not wearing the sling. Sutures were removed and steri-stripes were applied. The patient presented in the office today not wearing the sling. He reports he was unsure of how to wear it. A prior order for physical therapy was placed on 12/31/2023 and he is pending scheduling with physical therapy. The office will contact the PT office to schedule the patient as soon as possible. Earlier during the encounter, the patient reported he was unsure how to wear the sling. I educated the patient on the importance of wearing the sling for adequate healing. The patient was offered to present later today with the sling to the office for us to assist him on getting the sling in proper positioning. He understands and is in agreement. He will come back to the office later today. Follow up will be in [address] Dickerson, or sooner if needed. Patient Instructions: Scribed by Lynn Nieto medical billing and coding instructor, for Emily Newell PA-C on 01/03/2024 at 12:49 pm, EST. Coding Level of Care Code Global (74571) Diagnoses S/P right rotator cuff repair Z98.890
== END 2024-01-03 13:02 | disposition home or self-care (01) ==
LOC: HO.HOS 12:47
PROVIDERS: PCP Family Medicine; Visit Provider Physician Assistant
DX: Z98.890 Other specified postprocedural states (principal)
CPT/HCPCS: 99024

== ENCOUNTER → 2024-01-03 12:47 | Outpatient (BNVA) | payer MEDICARE, SELFPAY | PROVIDERS: PCP Family Medicine; Visit Provider Physician Assistant | DX: Z47.89 Encounter for other orthopedic aftercare (principal); Z98.890 Other specified postprocedural states | CPT/HCPCS: 99212 ==

== ENCOUNTER 2024-01-31 11:14 | Outpatient (AMB) | payer MEDICARE, SELFPAY ==
[2024-01-31 11:16] VITALS: BMI 32.4
--- NOTE | 2024-01-31 11:16 | MHC.OFFVIS ---
Vital Signs 01/31/24 11:16 Height 5 ft 7 in Weight 207 lb BMI 32.4 Intake Visit Reasons: PO RT RTC repair 12/26/23 NE-follow up Intake Note: is a 68 year old right hand dominant male who presents today for a post op appointment s/p RT RTC repair 12/26/23 NE. Allergies No Known Allergies Allergy (Verified 01/03/24 12:52) HPI HPI PO RT RTC repair 12/26/23 NE-follow up: Details: Theron is 6 weeks status post right rotator cuff repair. He is doing well. He still has pain at night. He has been doing home PT but has not yet started outpatient PT. [facility] Medical History Asthma Full dentures Elevated cholesterol Neck pain HTN (hypertension) DJD of right shoulder Complete rotator cuff tear or rupture of right shoulder, not specified as traumatic Lymph node enlargement Arthropathy of cervical facet joint Chronic pain syndrome Other specified mononeuropathies Degeneration, intervertebral disc, cervical Postlaminectomy syndrome, cervical Surgical History Hx of appendectomy Hx of cervical discectomy Social History Household Members: None Housing: Apartment Are you a primary skin care consultant to a significant other at home: No Do you presently have visiting nurse or other home services: No 75 years or older and lives alone: No Patient Tobacco Use Status: Never used Tobacco Current occupational status: disabled Current occupation: right hand Physical Exam Vital Signs: BMI result Body Mass Index 32.4 Extrem Other: Incision clean dry and intact. /110/S1 Assessment & Plan Assessment & Plan (1) S/P right rotator cuff repair: Onset Date: ~12/26/23 Comment: Dr. Denis Dickerson Code(s): Z98.890 - Other specified postprocedural states Category: Surgical Plan: Theron is 6 weeks status post rotator cuff repair. I have again reach up to physical therapy to see if he can start outpatient PT. I will give him 1 more refill on his pain meds to take 1 pill at night. Orders: Orders PT Evaluation and Treatment Today Z98.890 - Other specified postprocedural states Medications: Changed From oxycodone-acetaminophen 5-325 mg Partial Fill upon patient request. 1 tab PO Q4-6H 7 days PRN 42 tabs 0RF pain To oxycodone-acetaminophen 5-325 mg Partial Fill upon patient request. 1 tab PO DAILY 21 days PRN 21 tabs 0RF pain Coding Level of Care Code Global (06082) Diagnoses S/P right rotator cuff repair Z98.890
== END 2024-01-31 11:30 | disposition home or self-care (01) ==
PROVIDERS: PCP Family Medicine; Visit Provider Orthopaedic Surgery
DX: Z98.890 Other specified postprocedural states (principal)
CPT/HCPCS: 99024

== ENCOUNTER → 2024-01-31 11:14 | Outpatient (BNVA) | payer MEDICARE, SELFPAY | PROVIDERS: PCP Family Medicine; Visit Provider Orthopaedic Surgery | DX: Z98.890 Other specified postprocedural states (principal) | CPT/HCPCS: 99212 ==

== ENCOUNTER 2024-03-11 14:00 | Outpatient (RCR) | payer MEDICARE, SELFPAY ==
--- NOTE | 2024-03-05 15:37 | MHC.PT.EP ---
[facility] [place] Office [place] Office [place] Office [address] Antonio Ruff [address] [phone] F: [phone] F: [phone] F: [phone] F: [phone] Physical Therapy Plan of Care Date of Evaluation: 03/05/24 Date of Surgery: 12/26/23 Diagnosis: s/p RT RTC repair (RL) supraspinatus repair on 12/26/23 Assessment: pt is a 68 y/o male presenting to physical therapy w/ referring diagnosis of s/p RT RTC repair. He underwent R SAD, bursectomy, and supraspinatus repair on 12/26/23. Impairments include pain, decreased range of motion, decreased strength, impaired functional mobility, impaired postural awareness, and altered ambulation mechanics. pt is a good candidate for skilled PT due to age, potential remediation of impairments, typical disease/condition progression and prognosis, comorbidities, and motivation. pt would benefit from skilled PT intervention to provide a tailored strengthening and stretching exercise program, functional training, gait training, postural re-training, neuromuscular re-education, modalities as needed for pain, equipment safety demonstration. Frequency and Duration: The patient will be seen 2x/wk for 6 wks Short Term Goals: pt will be I w/ HEP to promote self-management of condition. pt will improve R shoulder flexion by at least 15 degrees to promote ease in reaching. Frame Wirer Goals: pt will report a statistically significant improvement in self-reported outcome measure, SPADI, to promote return to PLOF. pt will will improve R shoulder flexion and elbow flexion strength by 1 MMT grade to promote ease in rubber process hand. Treatment Plan: Modalities to reduce pain, spasms and effusion. Manual therapy to restore motion and function. Therapeutic exercise to improve strength and flexibility. Neuromuscular re-education for posture and balance. Therapeutic activities to return to functional activities of daily living. Electronically signed by: Geneva Hoang PT, DPT Please sign and return to therapist. Thank you for your referral.
--- NOTE | 2024-03-21 09:36 | MHC.PT.DC ---
[facility] [place] Office [place] Office [place] Office [address] Antonio Ruff [address] [phone] F: [phone] F: [phone] F: [phone] F: [phone] Physical Therapy Discharge Report Diagnosis: s/p RT RTC repair (RL) supraspinatus repair on 12/26/23 Date of Surgery: 12/26/23 Date of Evaluation: 03/05/24 Date of Discharge: 03/21/24 Treatments to Date: 2 Cancellations to Date: 0 No Shows to Date: 3 Discharge Status: Visit Non-compliance Discharge Summary: The patient is being discharged for attendance non-compliance. He presented for his initial evaluation over two months from his surgical date. He had not received any physical therapy or doing any exercises on his own for his shoulder during that time period. The patient presented with significant range of motion and strength deficits and was educated that his post-operative recovery would take several months. He only scheduled 5 visits and no showed 3 of them. He was not particularly motivated to participate in PT and would ask to end sessions early. Electronically signed by: Geneva Hoang PT, DPT Please sign and return to therapist. Thank you for your referral.
== END 2024-03-21 09:37 | disposition home or self-care (01) ==
LOC: HO.PT 14:00
PROVIDERS: PCP Student in an Organized Health Care Education/Training Program; Visit Provider Orthopaedic Surgery
DX: Z47.89 Encounter for other orthopedic aftercare (principal)
CPT/HCPCS: 97110; 97162

== ENCOUNTER 2024-04-15 10:04 | Outpatient (REF) | payer MEDICARE, SELFPAY ==
[2024-04-15 14:30] LABS: Alanine Aminotransferase 19 U/L (0-40); Alkaline Phosphatase 47 U/L (39-117); Anion Gap 14 (12-20); Aspartate Amino Transferase 19 U/L (5-37); Bilirubin Direct 0.2 mg/dL (0.0-0.5); Bilirubin Total 0.4 mg/dL (0.0-1.0); Blood Urea Nitrogen 20 mg/dL (9-16); Calcium 9.9 mg/dL (8.4-10.2); Carbon Dioxide 26 mmol/L (22-29); Chloride 104 mmol/L (96-108); Cholesterol 190 mg/dL (<200); Estimated Glomerular Filt Rate 54; Glucose Random 114 mg/dL (60-115); HDL Cholesterol 68 mg/dL (>40); LDL Cholesterol Calculated 102 mg/dL (<100); Potassium 3.5 mmol/L (3.3-5.1); Sodium 140 mmol/L (135-145); Total Protein 7.4 g/dL (6.5-8.0); Triglycerides 103 mg/dL (<150)
== END 2024-04-15 10:05 | disposition home or self-care (01) ==
LOC: HO.CHCLDS 10:04
PROVIDERS: Visit Provider Student in an Organized Health Care Education/Training Program
DX: I10 Essential (primary) hypertension (principal); E78.00 Pure hypercholesterolemia, unspecified
CPT/HCPCS: 36415; 80048; 80061; 80076

== ENCOUNTER 2024-04-29 12:46 | Outpatient (REF) | payer MEDICARE, SELFPAY ==
--- NOTE | 2024-04-29 13:23 | MHC.AU.ANO ---
Adult Audiological Evaluation Date of Visit: 04/29/24 Clinical Nursing Assistant Used: [facility] nurse assessor, Jai. Reason for Appointment: Referred for evaluation by PCP. Does patient feel they have a hearing loss?: Yes If Yes, Which Ear?: Both Ears When Was Hearing Difficulty First Noticed?: 2 months ago. Has hearing been tested previously?: No Medical History: Medical History: High Blood Pressure Otoscopy: Right Ear: Completely occluded with cerumen Left Ear: Completely occluded with cerumen Tympanometry: Tympanometry performed due to: To determine if cerumen blockage is fully occluding canal(s) Right Ear: Normal Middle Ear System (Type A) Left Ear: Non-compliant Middle Ear System (Type B) Results: Seen for evaluation. [facility] nurse assessor present. Reports difficulty hearing for two months. Reports gradual decline in hearing. Denies tinnitus, vertigo, significant otologic history. Denies family history of hearing loss. Denies history of noise exposure. Otoscopy reveals visually occluding cerumen Au. Tympanograms WNL Ad. Flat As. Right: 0.8 cm3 -30 daPa 0.75 mmho Left: 0.7 cm3 [employer] Additional testing today deferred due to occluding cerumen. Discussed options for removal- PCP, or out of pocket costs here. Pt. will contact PCP. Recommendations: Follow-up with physician for cerumen removal. Return for evaluation following cerumen removal. Diagnosis: Primary Diagnosis: H61.22 Impacted Cerumen, Left Ear Signature: Provider: Rene Munoz, [facility]
== END 2024-04-29 12:47 | disposition home or self-care (01) ==
LOC: HO.SH 12:46
PROVIDERS: Visit Provider Student in an Organized Health Care Education/Training Program
DX: Z01.118 Encounter for examination of ears and hearing with other abnormal findings (principal); H61.22 Impacted cerumen, left ear
CPT/HCPCS: 92567

== ENCOUNTER 2024-06-20 13:46 | Outpatient (AMB) | payer MEDICARE, SELFPAY ==
--- NOTE | 2024-06-20 13:53 | HO.NEPHOV_ITS ---
Vital Signs 06/20/24 13:54 06/20/24 14:10 Height 5 ft 7 in Weight 205 lb BMI 32.1 BP 102/70 80/50 L Blood Pressure Location Lt brachial Lt brachial Position Sitting Sitting Pulse 99 Pulse Source Pulse Oximeter Pulse Oximetry (%) 94 Oxygen Delivery Method Room Air Intake Visit Reasons: Hypertension/ LVM Line Haul Driver Required: No Line Haul Driver Name: [id number] brooks Accompanied by: Self / Same As Patient Allergies No Known Allergies Allergy (Verified 06/20/24 13:55) Medication List - Last Reconciled 06/20/24 by Jamie Limon MD albuterol sulfate 90 mcg/actuation 2 puffs inhalation QID PRN gabapentin 300 mg PO BID hydrochlorothiazide 25 mg PO DAILY losartan 100 mg PO QAM meclizine 25 mg PO DAILY PRN simvastatin 20 mg PO BEDTIME trazodone 100 mg PO DAILY HPI Comments Details: . 68-year-old man with a history of hypertension referred for evaluation of chronic kidney disease and hypertension. He has been on hydrochlorothiazide 25 mg and losartan 100 mg daily. recent creatinine was 1.3 mg/dL with the EGFR of about 54 mL/minute and hence this evaluation. He has chronic low back pain. He takes ibuprofen and meloxicam periodically. He is also on gabapentin. Today he has no headache nausea or vomiting. No shortness of breath. No urinary symptoms no fever no rash. No history of smoking. [facility] Medical History (Updated 06/20/24 @ 14:19 by Jamie Limon MD) Asthma Full dentures Elevated cholesterol Neck pain HTN (hypertension) DJD of right shoulder Complete rotator cuff tear or rupture of right shoulder, not specified as traumatic Lymph node enlargement Arthropathy of cervical facet joint Chronic pain syndrome Other specified mononeuropathies Degeneration, intervertebral disc, cervical Postlaminectomy syndrome, cervical Surgical History Hx of appendectomy Hx of cervical discectomy Social History Household Members: None Housing: Apartment Are you a primary child care lead teacher to a significant other at home: No Do you presently have visiting nurse or other home services: No 75 years or older and lives alone: No Patient Tobacco Use Status: Never used Tobacco Current occupational status: disabled Current occupation: right hand Physical Exam Vital Signs: Last Vital Signs Pulse 99 06/20/24 13:54 BP 80/50 L 06/20/24 14:10 Pulse Ox 94 06/20/24 13:54 Oxygen Delivery Method Room Air 06/20/24 13:54 BMI result Body Mass Index 32.1 Comfortable Affect is flat. Speech is slow Neck supple no JVD. Lungs entry equal no rales. Heart has been started no gallop Abdomen is obese soft nontender extremities no edema no rash. Neuro no asterixis no resting tremor Results Reviewed Nephrology Results: Sodium 140 mmol/L (135-145) 04/15/24 Potassium 3.5 mmol/L (3.3-5.1) 04/15/24 Chloride 104 mmol/L (96-108) 04/15/24 Carbon Dioxide 26 mmol/L (22-29) 04/15/24 BUN 20 mg/dL (9-16) H 04/15/24 Creatinine 1.31 mg/dL (0.5-1.4) 04/15/24 Calcium 9.9 mg/dL (8.4-10.2) 04/15/24 Assessment & Plan Assessment & Plan (1) HTN (hypertension): Code(s): I10 - Essential (primary) hypertension Category: Medical (2) CKD (chronic kidney disease): Code(s): N18.9 - Chronic kidney disease, unspecified Category: Medical Plan has chronic kidney disease setting of longstanding hypertension. I think there is a component of hypoperfusion from low blood pressure. Use of NSAIDs could also contribute to hypoperfusion Other possibilities including obstructive uropathy should be considered. Glomerular nephritis or interstitial disease seem unlikely at this point nevertheless we will rule that out. Recommendations Stop ibuprofen and meloxicam. Due to low blood pressure I would hold HCTZ. Workup ordered including urine studies. Check renal panel in the next 2 weeks to see if any improvement in renal function. Continue overt nephrotoxic agents including NSAIDs. If renal function does not improve I will obtain renal ultrasonogram. All his questions were answered. Further workup will be based on the above baseline investigations Orders: Orders Basic Metabolic Panel 2 Weeks I10 - Essential (primary) hypertension Total Protein Urine Random 2 Weeks I10 - Essential (primary) hypertension UA and rflx microscopic 2 Weeks I10 - Essential (primary) hypertension Creatinine Urine 2 Weeks I10 - Essential (primary) hypertension Coding Level of Care Code New Pt Level 4 (45454) Diagnoses HTN (hypertension) I10 CKD (chronic kidney disease) N18.9
[2024-06-20 13:54] VITALS: BP 102/70; PULSE 99; O2SAT 94; BMI 32.1
[2024-06-20 14:10] VITALS: BP 80/50
== END 2024-06-20 14:15 | disposition home or self-care (01) ==
PROVIDERS: PCP Student in an Organized Health Care Education/Training Program; Referring Provider Student in an Organized Health Care Education/Training Program; Visit Provider Internal Medicine Hypertension Specialist
DX: I12.9 Hypertensive chronic kidney disease with stage 1 through stage 4 chronic kidney disease, or unspecified chronic kidney disease (principal); N18.9 Chronic kidney disease, unspecified
CPT/HCPCS: 99204

== ENCOUNTER → 2024-06-20 13:46 | Outpatient (BNVA) | payer MEDICARE, SELFPAY | PROVIDERS: PCP Student in an Organized Health Care Education/Training Program; Referring Provider Student in an Organized Health Care Education/Training Program; Visit Provider Internal Medicine Hypertension Specialist | DX: I12.9 Hypertensive chronic kidney disease with stage 1 through stage 4 chronic kidney disease, or unspecified chronic kidney disease (principal); N18.9 Chronic kidney disease, unspecified | CPT/HCPCS: 99202 ==

== ENCOUNTER 2024-06-23 10:50 | Outpatient (REF) | payer MEDICARE, SELFPAY ==
[2024-06-23 12:46] LABS: Anion Gap 12 (12-20); Blood Urea Nitrogen 18 mg/dL (9-16); Calcium 9.8 mg/dL (8.4-10.2); Carbon Dioxide 27 mmol/L (22-29); Chloride 103 mmol/L (96-108); Estimated Glomerular Filt Rate 50; Glucose Random 110 mg/dL (60-115); Potassium 3.5 mmol/L (3.3-5.1); Sodium 138 mmol/L (135-145)
[2024-06-23 14:09] LABS: Appearance Urine Clear; Color Urine Yellow; Glucose Urine UA Negative (Negative); Leukocyte Esterase Urine Negative (Negative); Nitrite Urine Negative (Negative); PH 7.5 (5.0-9.0); Specific Gravity - Urine 1.015 (1.005-1.025); Urine Blood Negative (Negative); Urine Ketones Negative (Negative); Urine Protein Negative (Neg-Trace)
[2024-06-23 14:35] LABS: Creatinine Urine 123.19 mg/dL; Total Protein Urine Random 8 mg/dL (<12)
== END 2024-06-23 10:51 | disposition home or self-care (01) ==
LOC: HO.LAB 10:50
PROVIDERS: PCP Student in an Organized Health Care Education/Training Program; Visit Provider Internal Medicine Hypertension Specialist
DX: I10 Essential (primary) hypertension (principal)
CPT/HCPCS: 36415; 80048; 81003; 82570; 84156

== ENCOUNTER 2024-07-04 11:36 | Outpatient (AMB) | payer MEDICARE, SELFPAY ==
[2024-07-04 11:39] VITALS: BP 110/76; PULSE 86; O2SAT 96; BMI 32.6
--- NOTE | 2024-07-04 11:39 | HO.NEPHOV ---
Vital Signs 07/04/24 11:39 07/04/24 11:49 Height 5 ft 7 in Weight 208 lb BMI 32.6 BP 110/76 100/70 Blood Pressure Location Lt brachial Lt brachial Position Sitting Sitting Pulse 86 Pulse Source Pulse Oximeter Pulse Oximetry (%) 96 Oxygen Delivery Method Room Air Intake Visit Reasons: 2 wks follow up/ Conf Blood Bank Laboratory Professional Required: No Blood Bank Laboratory Professional Name: [id number] Fajardo Accompanied by: Self / Same As Patient Allergies No Known Allergies Allergy (Verified 07/04/24 11:41) Medication List - Last Reconciled 07/04/24 by Jamie Limon MD albuterol sulfate 90 mcg/actuation 2 puffs inhalation QID PRN gabapentin 300 mg PO BID losartan 100 mg PO QAM meclizine 25 mg PO DAILY PRN simvastatin 20 mg PO BEDTIME trazodone 100 mg PO DAILY HPI Comments Details: . 68-year-old man with a history of hypertension referred for evaluation of chronic kidney disease and hypertension. He has been on hydrochlorothiazide 25 mg and losartan 100 mg daily. recent creatinine was 1.3 mg/dL with the EGFR of about 54 mL/minute and hence this evaluation. He has chronic low back pain. He takes ibuprofen and meloxicam periodically. He is also on gabapentin. Today he has no headache nausea or vomiting. No shortness of breath. No urinary symptoms no fever no rash. No history of smoking. 07/04/2024. Overall he is doing well. He has stopped taking meloxicam. [facility] Medical History (Updated 06/20/24 @ 14:19 by Jamie Limon MD) Asthma Full dentures Elevated cholesterol Neck pain HTN (hypertension) DJD of right shoulder Complete rotator cuff tear or rupture of right shoulder, not specified as traumatic Lymph node enlargement Arthropathy of cervical facet joint Chronic pain syndrome Other specified mononeuropathies Degeneration, intervertebral disc, cervical Postlaminectomy syndrome, cervical Surgical History Hx of appendectomy Hx of cervical discectomy Social History Household Members: None Housing: Apartment Are you a primary neonatal intensive care unit nurse to a significant other at home: No Do you presently have visiting nurse or other home services: No 75 years or older and lives alone: No Patient Tobacco Use Status: Never used Tobacco Current occupational status: disabled Current occupation: right hand Physical Exam Vital Signs: Last Vital Signs Pulse 86 07/04/24 11:39 BP 100/70 07/04/24 11:49 Pulse Ox 96 07/04/24 11:39 Oxygen Delivery Method Room Air 07/04/24 11:39 BMI result Body Mass Index 32.6 Comfortable Affect is flat. Speech is slow Neck supple no JVD. Lungs entry equal no rales. Heart has been started no gallop Abdomen is obese soft nontender extremities no edema no rash. Neuro no asterixis no resting tremor Results Reviewed Nephrology Results: Sodium 138 mmol/L (135-145) 06/23/24 Potassium 3.5 mmol/L (3.3-5.1) 06/23/24 Chloride 103 mmol/L (96-108) 06/23/24 Carbon Dioxide 27 mmol/L (22-29) 06/23/24 BUN 18 mg/dL (9-16) H 06/23/24 Creatinine 1.41 mg/dL (0.5-1.4) H 06/23/24 Calcium 9.8 mg/dL (8.4-10.2) 06/23/24 Urine Protein Negative mg/dL (Neg-Trace) 06/23/24 Urine Creatinine 123.19 mg/dL 06/23/24 Assessment & Plan Assessment & Plan (1) HTN (hypertension): Code(s): I10 - Essential (primary) hypertension Category: Medical (2) CKD (chronic kidney disease): Code(s): N18.9 - Chronic kidney disease, unspecified Category: Medical Plan has chronic kidney disease setting of longstanding hypertension. I think there is a component of hypoperfusion from low blood pressure. Use of NSAIDs could also contribute to hypoperfusion Other possibilities including obstructive uropathy ,Glomerular nephritis or interstitial disease seem unlikely at this point Recommendations Continue to avoid ibuprofen and meloxicam. Due to low blood pressure we will decrease losartan from 100 mg down to 50 mg a day. Check renal panel in the next 2 weeks to see if any improvement in renal function. Orders: Orders Basic Metabolic Panel 2 Weeks I10 - Essential (primary) hypertension, N18.9 - Chronic kidney disease, unspecified Medications: Changed From losartan 100 mg PO QAM To losartan 50 mg PO QAM Coding Level of Care Code Est Pt Level 4 (75127) Diagnoses HTN (hypertension) I10 CKD (chronic kidney disease) N18.9
[2024-07-04 11:49] VITALS: BP 100/70
== END 2024-07-04 11:56 | disposition home or self-care (01) ==
PROVIDERS: PCP Student in an Organized Health Care Education/Training Program; Visit Provider Internal Medicine Hypertension Specialist
DX: I12.9 Hypertensive chronic kidney disease with stage 1 through stage 4 chronic kidney disease, or unspecified chronic kidney disease (principal); N18.9 Chronic kidney disease, unspecified
CPT/HCPCS: 99214

== ENCOUNTER → 2024-07-04 11:36 | Outpatient (BNVA) | payer MEDICARE, SELFPAY | PROVIDERS: PCP Student in an Organized Health Care Education/Training Program; Visit Provider Internal Medicine Hypertension Specialist | DX: I12.9 Hypertensive chronic kidney disease with stage 1 through stage 4 chronic kidney disease, or unspecified chronic kidney disease (principal); N18.9 Chronic kidney disease, unspecified | CPT/HCPCS: 99212 ==

== ENCOUNTER 2024-09-15 10:58 | Outpatient (AMB) | payer OTHER, SELFPAY ==
--- NOTE | 2024-09-15 11:03 | HO.NEPHOV ---
Vital Signs 09/15/24 11:04 Height 5 ft 7 in Weight 210 lb BMI 32.9 BP 120/78 Blood Pressure Location Lt brachial Position Sitting Pulse 76 Pulse Source Pulse Oximeter Pulse Oximetry (%) 96 Oxygen Delivery Method Room Air Intake Visit Reasons: Pt missed 08/12/24 appt/ Conf Machine I Engraver Required: Yes Machine I Engraver Name: Bahman [id number] Accompanied by: Self / Same As Patient Allergies No Known Allergies Allergy (Verified 09/15/24 11:06) Medication List - Last Reconciled 09/15/24 by Jamie Limon MD albuterol sulfate 90 mcg/actuation 2 puffs inhalation QID PRN gabapentin 300 mg PO BID losartan 50 mg PO QAM meclizine 25 mg PO DAILY PRN simvastatin 20 mg PO BEDTIME trazodone 100 mg PO DAILY HPI Comments Details: . 68-year-old man with a history of hypertension referred for evaluation of chronic kidney disease and hypertension. He has been on hydrochlorothiazide 25 mg and losartan 100 mg daily. recent creatinine was 1.3 mg/dL with the EGFR of about 54 mL/minute and hence this evaluation. He has chronic low back pain. He takes ibuprofen and meloxicam periodically. He is also on Gabapentin. Today he has no headache nausea or vomiting. No shortness of breath. No urinary symptoms no fever no rash. No history of smoking. 07/04/2024. Overall he is doing well. He has stopped taking meloxicam. 09/15/24 After lowering Losartan, BP is better No new issues [facility] Medical History (Updated 06/20/24 @ 14:19 by Jamie Limon MD) Asthma Full dentures Elevated cholesterol Neck pain HTN (hypertension) DJD of right shoulder Complete rotator cuff tear or rupture of right shoulder, not specified as traumatic Lymph node enlargement Arthropathy of cervical facet joint Chronic pain syndrome Other specified mononeuropathies Degeneration, intervertebral disc, cervical Postlaminectomy syndrome, cervical Surgical History Hx of appendectomy Hx of cervical discectomy Social History Household Members: None Housing: Apartment Are you a primary skin care instructor to a significant other at home: No Do you presently have visiting nurse or other home services: No 75 years or older and lives alone: No Patient Tobacco Use Status: Never used Tobacco Current occupational status: disabled Current occupation: right hand Physical Exam Vital Signs: Last Vital Signs Pulse 76 09/15/24 11:04 BP 120/78 09/15/24 11:04 Pulse Ox 96 09/15/24 11:04 Oxygen Delivery Method Room Air 09/15/24 11:04 BMI result Body Mass Index 32.9 Const General: comfortable Nutritional Appearance: well nourished Orientation/consciousness: patient oriented x3 HEENT Head: No normal to inspection Mouth: moist mucous membranes Neck Neck: Yes supple and Yes no JVD Resp Auscultation: clear to auscultation bilaterally, no rales and rub present Cardio Jugular venous distension: no JVD Palpation: no palpable S3 and no palpable S4 Heart sounds: no rubs GI Palpation (GI): Soft to palpation and nontender Percussion: No Fluid wave present General: Yes no CVA tenderness Back/Spine/Pelvis Back: no CVA tenderness Skin General skin exam: no rashes or lesions noted Neuro General: patient oriented x3 Extrem General: Yes no pedal edema and No clubbing Results Reviewed Nephrology Results: Sodium 138 mmol/L (135-145) 06/23/24 Potassium 3.5 mmol/L (3.3-5.1) 06/23/24 Chloride 103 mmol/L (96-108) 06/23/24 Carbon Dioxide 27 mmol/L (22-29) 06/23/24 BUN 18 mg/dL (9-16) H 06/23/24 Creatinine 1.41 mg/dL (0.5-1.4) H 06/23/24 Calcium 9.8 mg/dL (8.4-10.2) 06/23/24 Urine Protein Negative mg/dL (Neg-Trace) 06/23/24 Urine Creatinine 123.19 mg/dL 06/23/24 Assessment & Plan Assessment & Plan (1) HTN (hypertension): Code(s): I10 - Essential (primary) hypertension Category: Medical (2) CKD (chronic kidney disease): Code(s): N18.9 - Chronic kidney disease, unspecified Category: Medical Plan has chronic kidney disease setting of longstanding hypertension. I think there is a component of hypoperfusion from low blood pressure. Use of NSAIDs could also contribute to hypoperfusion Other possibilities including obstructive uropathy ,Glomerular nephritis or interstitial disease seem unlikely at this point Recommendations Continue to avoid ibuprofen and meloxicam. After lowering Losartan, BP is acceptable. Check renal panel today to see if any improvement in renal function. Orders: Orders Basic Metabolic Panel Today I10 - Essential (primary) hypertension, N18.9 - Chronic kidney disease, unspecified Coding Level of Care Code Est Pt Level 4 (36998) Diagnoses HTN (hypertension) I10 CKD (chronic kidney disease) N18.9
[2024-09-15 11:04] VITALS: BP 120/78; PULSE 76; O2SAT 96; BMI 32.9
== END 2024-09-15 11:31 | disposition home or self-care (01) ==
PROVIDERS: PCP Student in an Organized Health Care Education/Training Program; Visit Provider Internal Medicine Hypertension Specialist
DX: I12.9 Hypertensive chronic kidney disease with stage 1 through stage 4 chronic kidney disease, or unspecified chronic kidney disease (principal); N18.9 Chronic kidney disease, unspecified
CPT/HCPCS: 99214

== ENCOUNTER → 2024-09-15 10:58 | Outpatient (BNVA) | payer OTHER, SELFPAY | PROVIDERS: PCP Student in an Organized Health Care Education/Training Program; Visit Provider Internal Medicine Hypertension Specialist | DX: I12.9 Hypertensive chronic kidney disease with stage 1 through stage 4 chronic kidney disease, or unspecified chronic kidney disease (principal); N18.9 Chronic kidney disease, unspecified | CPT/HCPCS: 99212 ==

== ENCOUNTER 2024-09-15 11:58 | Outpatient (REF) | payer OTHER, SELFPAY ==
[2024-09-15 14:10] LABS: Anion Gap 10 (12-20); Blood Urea Nitrogen 19 mg/dL (9-16); Calcium 9.5 mg/dL (8.4-10.2); Carbon Dioxide 30 mmol/L (22-29); Chloride 103 mmol/L (96-108); Estimated Glomerular Filt Rate 52; Glucose Random 103 mg/dL (60-115); Potassium 3.7 mmol/L (3.3-5.1); Sodium 139 mmol/L (135-145)
== END 2024-09-15 11:59 | disposition home or self-care (01) ==
LOC: HO.10HDL 11:58
PROVIDERS: Visit Provider Internal Medicine Hypertension Specialist
DX: I12.9 Hypertensive chronic kidney disease with stage 1 through stage 4 chronic kidney disease, or unspecified chronic kidney disease (principal); N18.9 Chronic kidney disease, unspecified
CPT/HCPCS: 36415; 80048

== ENCOUNTER 2025-01-15 10:30 | Outpatient (AMB) | payer OTHER, SELFPAY ==
[2025-01-15 10:31] VITALS: BP 116/78; PULSE 92; O2SAT 95; BMI 32.3
--- NOTE | 2025-01-15 10:31 | HO.NEPHOV_ITS ---
Vital Signs 01/15/25 10:31 Height 5 ft 7 in Weight 206 lb 6 oz BMI 32.3 BP 116/78 Blood Pressure Location Rt brachial Position Sitting Pulse 92 Pulse Source Pulse Oximeter Pulse Oximetry (%) 95 Oxygen Delivery Method Room Air Intake Visit Reasons: CKD/ LVM Clinical Sales Consultant Required: Yes Clinical Sales Consultant Language: Clod Puller Name: Alpesh([id number]) Allergies No Known Allergies Allergy (Verified 01/15/25 10:34) Medication List - Last Reconciled 01/15/25 by Jamie Limon MD albuterol sulfate 90 mcg/actuation 2 puffs inhalation QID PRN gabapentin 300 mg PO BID losartan 50 mg PO QAM meclizine 25 mg PO DAILY PRN simvastatin 20 mg PO BEDTIME trazodone 100 mg PO DAILY HPI Comments Details: . Middle aged man with a history of hypertension referred for evaluation of chronic kidney disease and hypertension. He has been on hydrochlorothiazide 25 mg and losartan 100 mg daily. recent creatinine was 1.3 mg/dL with the EGFR of about 54 mL/minute and hence this evaluation. He has chronic low back pain. He takes ibuprofen and meloxicam periodically. He is also on Gabapentin. Today he has no headache nausea or vomiting. No shortness of breath. No urinary symptoms no fever no rash. No history of smoking. 07/04/2024. Overall he is doing well. He has stopped taking meloxicam. 09/15/24; After lowering Losartan, BP is better ;No new issues 01/15/25: Interpretor was used. Doing well No N/v or edema PFSH Medical History Asthma Full dentures Elevated cholesterol Neck pain HTN (hypertension) DJD of right shoulder Complete rotator cuff tear or rupture of right shoulder, not specified as traumatic Lymph node enlargement Arthropathy of cervical facet joint Chronic pain syndrome Other specified mononeuropathies Degeneration, intervertebral disc, cervical Postlaminectomy syndrome, cervical Surgical History Hx of appendectomy Hx of cervical discectomy Social History Household Members: None Housing: Apartment Are you a primary career based intervention coordinator to a significant other at home: No Do you presently have visiting nurse or other home services: No 75 years or older and lives alone: No Patient Tobacco Use Status: Never used Tobacco Current occupational status: disabled Current occupation: right hand Physical Exam Vital Signs: Last Vital Signs Pulse 92 01/15/25 10:31 BP 116/78 01/15/25 10:31 Pulse Ox 95 01/15/25 10:31 Oxygen Delivery Method Room Air 01/15/25 10:31 BMI result Body Mass Index 32.3 Const General: comfortable Nutritional Appearance: well nourished Orientation/consciousness: patient oriented x3 HEENT Head: No normal to inspection Mouth: moist mucous membranes Neck Neck: Yes supple and Yes no JVD Resp Auscultation: clear to auscultation bilaterally and no rales Cardio Jugular venous distension: no JVD Palpation: no palpable S3 and no palpable S4 Heart sounds: no rubs GI Palpation (GI): Soft to palpation and nontender Percussion: No Fluid wave present General: Yes no CVA tenderness Back/Spine/Pelvis Back: no CVA tenderness Skin General skin exam: no rashes or lesions noted Neuro General: patient oriented x3 Extrem General: Yes no pedal edema and No clubbing Results Reviewed Nephrology Results: Sodium 139 mmol/L (135-145) 09/15/24 Potassium 3.7 mmol/L (3.3-5.1) 09/15/24 Chloride 103 mmol/L (96-108) 09/15/24 Carbon Dioxide 30 mmol/L (22-29) H 09/15/24 BUN 19 mg/dL (9-16) H 09/15/24 Creatinine 1.36 mg/dL (0.5-1.4) 09/15/24 Calcium 9.5 mg/dL (8.4-10.2) 09/15/24 Urine Protein Negative mg/dL (Neg-Trace) 06/23/24 Urine Creatinine 123.19 mg/dL 06/23/24 Assessment & Plan Assessment & Plan (1) HTN (hypertension): Code(s): I10 - Essential (primary) hypertension Category: Medical (2) CKD (chronic kidney disease): Code(s): N18.9 - Chronic kidney disease, unspecified Category: Medical Plan has chronic kidney disease setting of longstanding hypertension. I think there is a component of hypoperfusion from low blood pressure. Use of NSAIDs could also contribute to hypoperfusion Other possibilities including obstructive uropathy ,Glomerular nephritis or interstitial disease seem unlikely at this point Recommendations Continue to avoid ibuprofen and meloxicam. After lowering Losartan, BP is acceptable. Check renal panel today Orders: Orders Basic Metabolic Panel Today I10 - Essential (primary) hypertension, N18.9 - Chronic kidney disease, unspecified Complete Blood Count no Diff Today I10 - Essential (primary) hypertension, N18.9 - Chronic kidney disease, unspecified Total Protein Urine Random Today I10 - Essential (primary) hypertension, N18.9 - Chronic kidney disease, unspecified Creatinine Urine Today I10 - Essential (primary) hypertension, N18.9 - Chronic kidney disease, unspecified UA and rflx microscopic Today I10 - Essential (primary) hypertension, N18.9 - Chronic kidney disease, unspecified Coding Level of Care Code Est Pt Level 4 (40696) Diagnoses HTN (hypertension) I10 CKD (chronic kidney disease) N18.9
--- OUTSIDE RECORDS SUMMARY | 2025-01-15 12:10 | XMS_ITS | Encounter Summary ---
Author Organization [email or web address] Address [address] [facility] 7t [place] [address] Care Team Providers Care Butcher Supervisor Name Role Phone Dayanna Smith MD Primary Care Provider [phone] Reason for Visit * Reason Comments Med Refill Encounter Details Date Type Department Care Team (Late st Contact Info) Description 04/26/2023 Refill [facility] MEDICINE [address] [place] [address] Dayanna Smith MD [address] [place], [place] [phone] Hypercholesterolemia Social History Tobacco Use Types Packs/Day Years Used Date Smoking Tobacco: Never Smokeless Tobacco: Never Alcohol Use Standard Drinks/Week Comments Defer 0 (1 standard drink = 0.6 oz pur e alcohol) Depression Answer Date Recorded Patient Health Questionnaire-9 Score 4 02/14/2023 Depression Answer Date Recorded Patient Health Questionnaire-2 Score 2 02/14/2023 Sex and Gender Information Value Date Recorded Sex Assigned at Male 07/24/2022 10:14 AM EDT Legal Sex Male 10:14 AM EDT Gender Identity Choose not to disclose 10:14 AM EDT Sexual Orientation Choose not to disclose 2021 10:14 AM EDT COVID-19 Exposure Response Date Recorded In the last 10 days, have yo u been in contact with someone who was confirmed or suspected to have Coronavirus/COVID-19? No / Unsure 04/03/2023 10:46 AM EDT documented as of this encounter Plan of Treatment Not on file documented as of this encounter Visit Diagnoses Diagnosis Hypercholesterolemia Pure hypercholesterolemia documented in this encounter Additional Health Concerns Assessment Noted Time PHQ-9 Depression Total Score: 4 02/15/20 23 10:15 AM EDT documented as of this encounter Care Teams Butcher Supervisor Relationship Specialty Start Date End Date Dayanna Smith MD [address] [place] [id number] PCP - General Family Medicine 07/28/15 documented as of this encounter
--- OUTSIDE RECORDS SUMMARY | 2025-01-15 12:10 | XMS_ITS | Encounter Summary ---
Author Organization [employer] Address [address] [facility] 7[address] [place] [address] Care Team Providers Care Forestry Worker Name Role Phone Dayanna Smith MD Primary Care Provider [phone] Reason for Visit * Reason Comments Med Refill Encounter Details Date Type Department Care Team ([facility] st Contact Info) Description 04/26/2023 Refill [facility] MED & PEDS [address] [place], [place] [phone] Dayanna Smith MD [address] [place] [address] Social History Tobacco Use Types Packs/Day Years [...] documented as of this encounter Visit Diagnoses Not on filedocumented in this encounter Additional Health Concerns Assessment Noted Time PHQ-9 Depression Total Score: 4 02/15/20 23 10:15 AM EDT documented as of this encounter Care Teams Forestry Worker Relationship Specialty Start Date End Date Dayanna Smith MD [address] [place] [address] PCP - General Family Medicine 07/28/15 documented as of this encounter
--- OUTSIDE RECORDS SUMMARY | 2025-01-15 12:10 | XMS_ITS | Encounter Summary ---
Author Organization [employer] Address [address] [facility] 7t [place] [address] Care Team Providers Care Water Resources Technical Officer Name Role Phone Dayanna Smith MD Primary Care Provider [phone] Encounter Details Date Type Department Care Team (Late st Contact Info) Description 02/26/2023 Orders Only [facility] MEDICINE [address] [place], [place] [phone] Yee Abarca LPN Social History Tobacco Use Types Packs/Day Years [...] suspected to have Coronavirus/COVID-19? No / Unsure 02/14/2023 9:54 AM EDT documented as of this encounter Plan of Treatment Not on file documented as of this encounter Visit Diagnoses Not on filedocumented in this encounter Additional Health Concerns Assessment Noted Time PHQ-9 Depression Total Score: 4 02/15/20 23 10:15 AM EDT documented as of this encounter Care Teams Water Resources Technical Officer Relationship Specialty Start Date End Date Dayanna Smith MD [address] [place], [place] [phone] PCP - General Family Medicine 07/28/15 documented as of this encounter
--- OUTSIDE RECORDS SUMMARY | 2025-01-15 12:10 | XMS_ITS | Encounter Summary ---
Author Organization [employer] Address [address] [facility] 7t [place] [address] Care Team Providers Care Senior Test Engineer Name Role Phone Dayanna Smith MD Primary Care Provider [phone] Encounter Details Date Type Department Care Team (Late st Contact Info) Description 03/06/2023 Orders Only [facility] CH[facility] MED & PEDS [address] [place], [place] [phone] Rylie Weathers LPN Social History Tobacco Use Types Packs/Day [...] documented as of this encounter Care Teams Senior Test Engineer Relationship Specialty Start Date End Date Dayanna Smith MD [address] [place] [id number] PCP - General Family Medicine 07/28/15 documented as of this encounter
--- OUTSIDE RECORDS SUMMARY | 2025-01-15 12:11 | XMS_ITS | Encounter Summary ---
Author Organization [employer] Address [address] [place] [address] [address] [place] [address] Care Team Providers Care Golf Range Attendant Name Role Phone Dayanna Smith MD Primary Care Provider [phone] Reason for Visit * Reason Comments Med Refill Encounter Details Date Type Department Care Team ([facility] st Contact Info) Description 05/31/2023 Refill [facility] CHC MED & PEDS [address] [place], [place] [phone] Tate Neff MD [address] [place], [place] [phone] Acute pain of right shoulder Social History Tobacco Use Types Packs/Day Years [...] not to disclose 2021 10:14 AM EDT documented as of this encounter Plan of Treatment Not on file documented as of this encounter Visit Diagnoses Diagnosis Acute pain of right shoulder documented in this encounter Additional Health Concerns Assessment Noted Time PHQ-9 Depression Total Score: 4 02/15/20 23 10:15 AM EDT documented as of this encounter Care Teams Golf Range Attendant Relationship Specialty Start Date End Date Dayanna Smith MD [address] [place] [id number] PCP - General Family Medicine 07/28/15 documented as of this encounter
--- OUTSIDE RECORDS SUMMARY | 2025-01-15 12:11 | XMS_ITS | Encounter Summary ---
Author Organization [employer] Address [address] [facility] [address] [place] [address] Care Team Providers Care Mainspring Torque Tester Name Role Phone Dayanna Smith MD Primary Care Provider [phone] Reason for Referral * Consultation (Routine) - Authorized Specialty Diagnoses / Procedures Referred By Contac t Referred To Contact Gastroenterology Diagnoses Encounter for screening for malignant neoplasm of colon Dayanna Smith MD [address] [place], [place] Phone: tel: fax: Liliana Fernandez MD [address] [address] Phone: tel: fax: Referral ID Status Reason Start Date Expiration Date Visits Requested Visits Authorized [id number] Authorized Specialty Services Required 01/14/2025 01/14/2026 1 1 * Consultation (Urgent) - Authorized Specialty Diagnoses / Procedures Referred By Contac t Referred To Contact Pain Medicine Diagnoses Neck pain, chronic Dayanna Smith MD [address] [place], [place] Phone: tel: fax: Minh Ramirez MD [address] [place], [place] Phone: tel: fax: Referral ID Status Reason Start Date Expiration Date Visits Requested Visits Authorized [id number] Authorized Specialty Services Required 01/14/2025 01/14/2026 1 1 * Consultation (Urgent) - Authorized Specialty Diagnoses / Procedures Referred By Contac t Referred To Contact Podiatry Diagnoses Ingrown nail of great toe Dayanna Smith MD [address] [place] [address] Phone: tel: fax: Hitesh Faulkner, DPM [address] [address] Phone: tel: fax: Referral ID Status Reason Start Date Expiration Date Visits Requested Visits Authorized [id number] Authorized Specialty Services Required 01/14/2025 01/14/2026 1 1 Reason for Visit * Reason Comments Follow-up Htn Encounter Details Date Type Department Care Team ([facility] st Contact Info) Description 01/14/2025 11:15 AM EDT Office Visit [facility] CHC MED & PEDS [address] [place] [address] Dayanna Smith MD [address] [place] [address] Essential hypertension (Primary Dx); Pure hypercholesterolemia; Neck pain, chronic; Ingrown nail of great toe; Encounter for screening for malignant neoplasm of colon; Encounter for immunization; Seborrheic dermatitis Social History Tobacco Use Types Packs/Day Years Used Date Smoking Tobacco: Never Smokeless Tobacco: Never Alcohol Use Standard Drinks/Week Comments Defer 0 (1 standard drink = 0.6 oz pur e alcohol) Depression Answer Date Recorded Patient Health Questionnaire-9 Score 4 02/14/2023 Housing Stability Answer Date Recorded What is your housing situation today? I have laya corado 07/09/[address] you li ve. Do you have problems with any of the following? None of the above 07/09/2023 Food Insecurity Answer Date Recorded Within the past 12 months, y ou worried that your food would run out before you got money to buy more: Never True 07/09/2023 Within the past 12 months,th e food you bought just didn't last and you didn't have enough money to get more: Never True Transportation Answer Date Recorded In the past 12 months, has l ack of transportation kept you from medical appts, meetings, work or from getting things needed for daily living? No 07/09/2023 Utilities Answer Date Recorded In the past 12 months, has t he electric, gas, oil or water company threatened to shut off services in your home? No 07/09/2023 Depression Answer Date Recorded Patient Health Questionnaire-2 Score 2 02/14/2023 Internet Access Answer Date Recorded Internet Access Q1 Yes 05/25/2024 Internet Access Q2 Not on file 05/25/2024 Sex and Gender Information Value Date Recorded Sex Assigned at Male 07/24/2022 10:14 AM EDT Legal Sex Male 10:14 AM EDT Gender Identity Choose not to disclose 10:14 AM EDT Sexual Orientation Choose not to disclose 2021 10:14 AM EDT documented as of this encounter Last Filed Vital Signs Vital Sign Reading Time Taken Comments Blood Pressure 118/79 01/14/2025 10:48 AM EDT Pulse 80 01/14/2025 10:48 AM EDT Temperature 36.7 ??C (98.1 ??F) 01/14/2025 10:48 AM E DT Respiratory Rate 16 01/14/2025 10:48 AM EDT Oxygen Saturation 96% 01/14/2025 10:48 AM EDT Inhaled Oxygen Concentration - - Weight 92.1 kg (203 lb) 01/14/2025 10:48 AM EDT Height 175.3 cm (5' 9 ) 01/14/2025 10:48 AM EDT Body Mass Index 29.98 01/14/2025 10:48 AM EDT documented in this encounter Progress Notes * Dayanna Smith MD - 01/14/2025 11:15 AM EDT Images from the original note were not included. Subjective Patient ID: David Joe is a 69 y.o. adult who presents for Follow-up (Htn ). Neck Pain This is a recurrent problem. The current episode started more than 1 year ago. The problem occurs constantly. The problem has been gradually worsening. The pain is present in the occipital region. The pain is at a severity of 5/10. The pain is moderate. The symptoms are aggravated by position. Pertinent negatives include no chest pain or headaches. has tried heat and acetaminophen for the symptoms. The treatment provided mild relief. Review of Systems Constitutional: Negative. Respiratory: Negative. Negative for shortness of breath. Cardiovascular: Negative for chest pain and palpitations. Gastrointestinal: Negative. Genitourinary: Negative. Musculoskeletal: Positive for neck pain. Neurological: Negative for headaches. Objective Physical Exam Constitutional: Appearance: Normal appearance. Cardiovascular: Rate and Rhythm: Normal rate and regular rhythm. Pulmonary: Effort: Pulmonary effort is normal. Breath sounds: Normal breath sounds. Musculoskeletal: Cervical back: Spasms present. Decreased range of motion. Back: Neurological: General: No focal deficit present. Mental Status: is alert. Psychiatric: Mood and Affect: Mood normal. Behavior: Behavior normal. Assessment/Plan Diagnoses and all orders for this visit: Essential hypertension Comments: Well controlled Maintain a low-sodium diet (less than 2 grams per day). Maintain a regular cardiovascular exercise program. Advised to maintain a low-fat, low-cholesterol diet. Counseled regarding importance of weight loss. Counseled re: potential co-morbidities including cardiovascular disease. Pure hypercholesterolemia Comments: Stable Advised to maintain a low-fat, low-cholesterol diet. Counseled regarding importance of weight loss. Neck pain, chronic Comments: Advised warm compress and Stretching referred to Pain management Cont Gabapentine Orders: - Referral to Pain Medicine; Future Ingrown nail of great toe Comments: Referred to Podiatry Orders: - Referral to Podiatry; Future Encounter for screening for malignant neoplasm of colon - Referral to Gastroenterology; Future Encounter for immunization - PCV-20 VACCINE 6 wks + Seborrheic dermatitis Comments: Shampoo refilled Orders: - ketoconazole (NIZOral) 2 % shampoo; Apply topically 2 (two) times a week. To use 2 times a week documented in this encounter Plan of Treatment Scheduled Referrals Name Type Priority Associated Diagnoses Order Schedule Referral to Podiatry Outpatient Referral Urgent Ingrown nail of great toe Expected: 01/14/2025 (Approximate), Expires: 01/14/2026 Referral to Pain Medicine Outpatient Referral Urgent Neck pain, chronic Expected: 01/14/2025 (Approximate), Expires: 01/14/2026 Referral to Gastroenterology Outpatient Referral Routine Encounter for screening for malignant neoplasm of colon Expected: 01/14/2025 (Approximate), Expires: 01/14/2026 documented as of this encounter Visit Diagnoses Diagnosis Essential hypertension- Primary Unspecified essential hypertension Pure hypercholesterolemia Neck pain, chronic Ingrown nail of great toe Encounter for screening for malignant neoplasm of colon Encounter for immunization Seborrheic dermatitis Unspecified seborrheic dermatitis documented in this encounter Additional Health Concerns Assessment Noted Time PHQ-9 Depression Total Score: 4 02/15/20 23 10:15 AM EDT documented as of this encounter Care Teams Mainspring Torque Tester Relationship Specialty Start Date End Date Dayanna Smith MD [address] [place] [address] PCP - General Family Medicine 07/28/15 documented as of this encounter
--- OUTSIDE RECORDS SUMMARY | 2025-01-15 12:11 | XMS_ITS | Encounter Summary ---
Author Organization [employer] Address [address] [facility] 7t [place] [address] Care Team Providers Care Alfalfa Dehydrator Operator Name Role Phone Dayanna Smith MD Primary Care Provider [phone] Reason for Visit * Reason Comments Med Refill Encounter Details Date Type Department Care Team ([facility] st Contact Info) Description 10/04/2024 Refill [facility] [address] [place], [place] [phone] Dayanna Smith MD [address] [place] [address] Social History Tobacco Use Types Packs/Day Years [...] documented as of this encounter Care Teams Alfalfa Dehydrator Operator Relationship Specialty Start Date End Date Dayanna Smith MD 230 [place] [address] PCP - General Family Medicine 07/28/15 documented as of this encounter
--- OUTSIDE RECORDS SUMMARY | 2025-01-15 12:11 | XMS_ITS | Encounter Summary ---
Author Organization [id number] Address [address] [place] [address] 7[address] [place] [address] Care Team Providers Care Bench Chemist Name Role Phone Dayanna Smith MD Primary Care Provider [phone] Reason for Visit * Reason Comments Med Change Request Encounter Details Date Type Department Care Team ([facility] st Contact Info) Description 05/31/2023 Refill [facility] 230 [place], [place] [phone] Merline Carrion MD 230 [place], [place] [phone] Social History Tobacco Use Types Packs/Day Years [...] documented as of this encounter Care Teams Bench Chemist Relationship Specialty Start Date End Date Dayanna Smith MD 230 [place] [address] PCP - General Family Medicine 07/28/15 documented as of this encounter
--- OUTSIDE RECORDS SUMMARY | 2025-01-15 12:11 | XMS_ITS | Encounter Summary ---
Author Organization [employer] Address [address] [facility] 7t [place] [address] Care Team Providers Care Lead Business Systems Analyst Name Role Phone Dayanna Smith MD Primary Care Provider [phone] Encounter Details Date Type Department Care Team (Latest Contact Info) Description 01/14/2025 Travel Social History Tobacco Use Types Packs/Day Years [...] documented as of this encounter Care Teams Lead Business Systems Analyst Relationship Specialty Start Date End Date Dayanna Smith MD [address] [place] [address] PCP - General Family Medicine 07/28/15 documented as of this encounter
== END 2025-01-15 10:41 | disposition home or self-care (01) ==
LOC: HO.HKA 10:30
PROVIDERS: PCP Student in an Organized Health Care Education/Training Program; Visit Provider Internal Medicine Hypertension Specialist
DX: I12.9 Hypertensive chronic kidney disease with stage 1 through stage 4 chronic kidney disease, or unspecified chronic kidney disease (principal); N18.9 Chronic kidney disease, unspecified
CPT/HCPCS: 99214

== ENCOUNTER → 2025-01-15 10:30 | Outpatient (BNVA) | payer OTHER, SELFPAY | PROVIDERS: PCP Student in an Organized Health Care Education/Training Program; Visit Provider Internal Medicine Hypertension Specialist | DX: Z13.89 Encounter for screening for other disorder (principal) | CPT/HCPCS: 99212 ==

== ENCOUNTER 2025-01-15 10:52 | Outpatient (REF) | payer OTHER, SELFPAY ==
--- OUTSIDE RECORDS SUMMARY | 2025-01-15 12:45 | XMS_ITS | Encounter Summary ---
Author Organization [employer] Address [address] [facility] 7t [place] [address] Care Team Providers Care Landscape Crew Member Name Role Phone Dayanna Smith MD Primary Care Provider [phone] Reason for Visit * Reason Comments Med Refill Encounter Details Date Type Department Care Team (Late st Contact Info) Description 04/26/2023 Refill [facility] 230 [place] [address] Dayanna Smith MD [address] [place], [place] [phone] Hypercholesterolemia Social History Tobacco Use Types Packs/Day [...] documented as of this encounter Care Teams Landscape Crew Member Relationship Specialty Start Date End Date Dayanna Smith MD [address] [place] [address] PCP - General Family Medicine 07/28/15 documented as of this encounter
--- OUTSIDE RECORDS SUMMARY | 2025-01-15 12:45 | XMS_ITS | Encounter Summary ---
Author Organization [email or web address] Address [address] [facility] 7t [place] [address] Care Team Providers Care Cloth Picker Name Role Phone Dayanna Smith MD Primary Care Provider [phone] Reason for Visit * Reason Comments Med Refill Encounter Details Date Type Department Care Team ([facility] st Contact Info) Description 10/04/2024 Refill [facility] 505 [place], [place] [phone] Dayanna Smith MD [address] [place] [address] Social History Tobacco Use Types Packs/Day Years [...] documented as of this encounter Care Teams Cloth Picker Relationship Specialty Start Date End Date Dayanna Smith MD 230 [place] [address] PCP - General Family Medicine 07/28/15 documented as of this encounter
--- OUTSIDE RECORDS SUMMARY | 2025-01-15 12:45 | XMS_ITS | Encounter Summary ---
Author Organization [employer] Address [address] [facility] 7t [place] [address] Care Team Providers Care Calenderer Name Role Phone Dayanna Smith MD Primary Care Provider [phone] Encounter Details Date Type Department Care Team (Late st Contact Info) Description 03/06/2023 Orders Only [facility] [address] [place], [place] [phone] Rylie Weathers LPN Social History Tobacco Use [...] documented as of this encounter Care Teams Calenderer Relationship Specialty Start Date End Date Dayanna Smith MD [address] [place] [id number] PCP - General Family Medicine 07/28/15 documented as of this encounter
--- OUTSIDE RECORDS SUMMARY | 2025-01-15 12:45 | XMS_ITS | Encounter Summary ---
Author Organization [email or web address] Address [address] [facility] 7t [place] [address] Care Team Providers Care Utility Mechanic Supervisor Name Role Phone Dayanna Smith MD Primary Care Provider [phone] Encounter Details Date Type Department Care Team (Late st Contact Info) Description 02/26/2023 Orders Only [facility] 230 [place], [place] [phone] Yee Abarca LPN Social History Tobacco Use [...] documented as of this encounter Care Teams Utility Mechanic Supervisor Relationship Specialty Start Date End Date Dayanna Smith MD 230 [place], [place] [phone] PCP - General Family Medicine 07/28/15 documented as of this encounter
--- OUTSIDE RECORDS SUMMARY | 2025-01-15 12:45 | XMS_ITS | Encounter Summary ---
Author Organization [employer] Address [address] [place] [address] 7[place] [address] Care Team Providers Care Steel Fixer Name Role Phone Dayanna Smith MD Primary Care Provider [phone] Reason for Visit * Reason Comments Med Change Request Encounter Details Date Type Department Care Team ([facility] st Contact Info) Description 05/31/2023 Refill [facility] 230 [place], [place] [phone] Merline Carrion MD 230 [place], [place] [phone] Social History Tobacco Use Types Packs/Day Years [...] documented as of this encounter Care Teams Steel Fixer Relationship Specialty Start Date End Date Dayanna Smith MD 230 [place] [address] PCP - General Family Medicine 07/28/15 documented as of this encounter
--- OUTSIDE RECORDS SUMMARY | 2025-01-15 12:45 | XMS_ITS | Encounter Summary ---
Author Organization [employer] Address 75 [facility] 7t [place] [address] Care Team Providers Care Filament Coil Winder Name Role Phone Dayanna Smith MD Primary Care Provider [phone] Encounter Details Date Type Department Care Team [...] documented as of this encounter Care Teams Filament Coil Winder Relationship Specialty Start Date End Date Dayanna Smith MD [address] [place] [address] PCP - General Family Medicine 07/28/15 documented as of this encounter
--- OUTSIDE RECORDS SUMMARY | 2025-01-15 12:45 | XMS_ITS | Encounter Summary ---
Author Organization [employer] Address [address] [place] [address] 7 [place] [address] Care Team Providers Care Chief Writer Name Role Phone Dayanna Smith MD Primary Care Provider Reason for Visit * Reason Comments Med Refill Encounter Details Date Type Department Care Team ([facility] st Contact Info) Description 05/31/2023 Refill [facility] 505 [place], [place] [phone] Tate Neff MD 505 [place], [place] [phone] Acute pain of right shoulder Social History [...] documented as of this encounter Care Teams Chief Writer Relationship Specialty Start Date End Date Dayanna Smith MD [address] [place] [address] PCP - General Family Medicine 07/28/15 documented as of this encounter
--- OUTSIDE RECORDS SUMMARY | 2025-01-15 12:45 | XMS_ITS | Encounter Summary ---
Author Organization [employer] Address [address] [facility] 7t [place] [address] Care Team Providers Care Math Coach Name Role Phone Dayanna Smith MD Primary Care Provider [phone] Reason for Visit * Reason Comments Med Refill Encounter Details Date Type Department Care Team ([facility] st Contact Info) Description 04/26/2023 Refill [facility] 505 [place], [place] [phone] Dayanna Smith MD [address] [place] [address] Social History Tobacco Use Types Packs/Day Years [...] documented as of this encounter Care Teams Math Coach Relationship Specialty Start Date End Date Dayanna Smith MD 230 [place] [address] PCP - General Family Medicine 07/28/15 documented as of this encounter
--- OUTSIDE RECORDS SUMMARY | 2025-01-15 12:45 | XMS_ITS | Clinical Summary ---
Author Organization [employer] Address [address] [facility] 7t [place] [address] Care Team Providers Care Shot Man Name Role Phone Dayanna Smith MD Primary Care Provider [phone] Allergies No known active allergies Medications albuterol (ProAir HFA) 108 (90 Base) MCG/ACT inhaler Inhale 2 puff four times a day as needed 021 Active Acetaminophen 500 MG capsule Take one to two tablets as needed for fever or pain every 6 hours 30 capsule 023 Active meclizine (Antivert) 25 MG tablet TAKE 1 TABLET BY MOUTH EVERY DAY NEEDED 30 tablet 4 023 Active lidocaine (Lidoderm) 5 % patch Apply 1 patch topically in the morning. Remove & discard patch within 12 hours or as directed by MD. 15 patch 023 Active Blood Pressure kit 1 kit in the morning. 1 kit 023 Active famotidine (Pepcid) 40 MG/5ML suspension Take 5 mL (40 mg) by mouth at bedtime. 150 mL 2 024 Active fluticasone-stan meterol (Advair) 230-21 MCG/ACT inhalerIndicati ons:Mild intermittent asthma without complication INHALE 2 PUFFS IN THE MORNING AND AT BEDTIME. RINSE MOUTH WITH WATER AFTER USE. DO NOT SWALLOW. 12 g 11 024 Active sucralfate (Carafate) 1 GM/10ML suspension TAKE 2 TEASPOONSFUL (10 ML) BY MOUTH EVERY 6 (SIX) HOURS. 1200 mL 024 Active losartan (Cozaar) 100 MG tablet TAKE 1 TABLET BY MOUTH EVERY DAY IN THE MORNING 90 tablet 3 024 Active celecoxib (CeleBREX) 200 MG capsuleIndicati ons:Acute pain of right shoulder TAKE 1 CAPSULE BY MOUTH TWICE A DAY 60 capsule 024 Active Diclofenac Sodium 1 % gel APPLY TOPICALLY IF NEEDED EACH DAY FOR RIGHT ARM PAIN BELOW SHOULDER 100 g 024 Active triamcinolone (Kenalog) 0.1 % cream APPLY TOPICALLY IF NEEDED IN THE MORNING AND AT BEDTIME (PAIN AND SWELLING). 30 g 2 025 Active traZODone (Desyrel) 100 MG tabletIndicatio ns:Depression, unspecified depression type TAKE 1 TABLET BY MOUTH EVERY DAY AFTER A MEAL 90 tablet 1 025 Active gabapentin (Neurontin) 300 MG capsuleIndicati ons:Pain TAKE 1 CAPSULE BY MOUTH TWICE A DAY 60 capsule 3 025 Active simvastatin (Zocor) 20 MG tablet TAKE 1 TABLET BY MOUTH AT BEDTIME 90 tablet 2 025 Active hydroCHLOROthia zide (HYDRODiuril) 25 MG tablet TAKE 1 TABLET BY MOUTH EVERY DAY IN THE MORNING 90 tablet 3 025 Active albuterol 108 (90 Base) MCG/ACT inhalerIndicati ons:Uncomplicat ed asthma, unspecified asthma severity, unspecified whether persistent INHALE 2 PUFFS INTO LUNGS FOUR TIMES A DAY NEEDED 18 g 11 025 Active ketoconazole (NIZOral) 2 % shampooIndicati ons:Seborrheic dermatitis Apply topically 2 (two) times a week. To use 2 times a week 120 mL 3 025 Active albuterol 108 (90 Base) MCG/ACT inhalerIndicati ons:Uncomplicat ed asthma, unspecified asthma severity, unspecified whether persistent INHALE 2 PUFFS BY MOUTH FOUR TIMES A DAY NEEDED 18 g 11 024 2024 Discontinued ketoconazole (NIZOral) 2 % shampooIndicati ons:Seborrheic dermatitis APPLY TOPICALLY 2 (TWO) TIMES A WEEK. TO USE 2 TIMES A WEEK 120 mL 3 024 2024 Discontinued(R eorder (will not trigger notification to Pharmacy)) gabapentin (Neurontin) 300 MG capsuleIndicati ons:Pain Take 1 capsule (300 mg) by mouth 2 times daily. 60 capsule 3 024 2024 Discontinued(D uplicate order (will not trigger notification to Pharmacy)) Active Problems Problem Noted Date Diagnosed Date Gastroesophageal reflux disease without esophagi tis 11/28/2023 Dysphagia 11/07/2023 Assessment & Plan (11/07/2023 4:17 PM EST): Patient came in because he was experiencing dysphagia for the past 3 days. He experiences this when he eats solids. I have prescribed him Pepcid and Carafate (both liquid suspension) to see if that helps with dysphagia. I have requested a wellness check with nursing staff. Future Appointments Date Time Provider Department Center 11/28/2023 11:00 AM Dayanna Smith MD [facility] I have also referred him to gastroenterology and have ordered a barium swallow test. Right arm pain 05/31/2023 Assessment & Plan (05/31/2023 12:37 PM EDT): therer is point tenderness with palpation over prox right arm in dorsal aspect,palpating small bulging in area of aprox 2 cm ,nor clear borders, shoulder is not swollen,no tenderness Will need to r/o if biceps tear, or any other abnormality as cyst ? That maybe causing symptoms -XR right shoulder 03/2023 :Bony alignment and mineralization are normal. There is mild osteoarthritic change of the right glenohumeral joint. The acromioclavicular and coracoclavicular intervals are normal. No fracture or dislocation is seen. There is no abnormal soft tissue calcification or foreign body.There is mild osteoarthritic change of the right glenohumeral joint. No fracture or dislocation is seen. -Will do right shoulder MRI w/o contrast to further eval for pain and bulging palpated to r/o cyst or tendon tear -sent referral for orthopedic done by his PCP to [facility] offender employment specialist to check status of referral -advised pt to take tylenol prn Q 6 h as needed that has at home ,diclofenac topical prn and lidoderm patch -will hold on px more oral NSAIDS -noted borderline high cr at 1.33 GFR 59 in 06/2022 From cr 1.4 in 2020 --will check chem today -got apt today w PCP for f up of pain,image and chem result Memory loss 05/31/2023 Assessment & Plan (05/31/2023 12:28 PM EDT): Noted during visit to have poor memory and pt reports been forgetful -pt will f w PCP this month for memory loss -I called his son -David Joe Jr to # [phone] -was not able to reach but left a voice mail informing plan for right arm pain to see if son can help with process for pt to complete images and consults Depressive disorder 07/28/2015 Essential hypertension 07/28/2015 Assessment & Plan (05/31/2023 12:24 PM EDT): Noted elevated BP today at 147/104 Pt reports took his BP meds this am but seems unsure and pain can also be causing uncontrol BP -did px today for BP machine to take home BP and to take to PCP at next apt scheduled for this month to monitor if need to adjust BP meds -advised against chronic PO NSAIDS use Mild intermittent asthma 07/28/2015 Pure hypercholesterolemia 07/28/2015 Chronic back pain 07/28/2015 Encounters Date Type Department Care Team Description 01/14/2025 11:15 AM EDT Office Visit [facility] 505 [place] [address] Dayanna Smith MD Essential hypertension (Primary Dx); Pure hypercholesterolemia; Neck pain, chronic; Ingrown nail of great toe; Encounter for screening for malignant neoplasm of colon; Encounter for immunization; Seborrheic dermatitis 01/14/2025 Travel 12/24/2024 Travel 12/23/2024 Telephone [facility] [address] [place] [address] Dayanna Smith MD chart Prep 12/23/2024 Refill [facility] 230 [place] [address] Dayanna Smith MD Uncomplicated asthma, unspecified asthma severity, unspecified whether persistent 12/11/2024 Travel 12/04/2024 Refill [facility] 505 [place] [address] Dayanna Smith MD 11/03/2024 Refill [facility] 505 [place] [address] Dayanna Smith MD Pain 10/23/2024 Telephone [facility] [address] [place] [address] NUTRITION APPT REQUEST from Last 3 Months Immunizations Name Administration Dates Next Due Influenza High-dose Quadriva lent Preservative Free 07/19/2022 Influenza Injectable Quadriv alant Preservative Free IIV4 MDCK 07/15/2017 Influenza injectable quadriv alent IIV4 with preservative 07/28/2015 Influenza injectable quadriv alent preservative free 06/19/2023,06/23/2019,09/30/2018 Influenza, IIV3, injectable 07/13/2014,1 10/09/2011,05/30/2012,09/11 Betty SARS-CoV-2 Vaccination 12/21/2020 Pfizer Covid-19 Vaccine 12+ 07/29/2024,,10/07/2021 Pneumococcal Conjugate PCV 20 01/14/2025 Pneumococcal Polysaccharide PPSV23 06/06/2000 RSV Adjuvant 01/11/2025 Tdap 09/30/2018,02/22/2011 Zoster, Recombinant 06/06/2023,04/04/2023 Zoster, live 07/15/2017 Social History Tobacco Use Types Packs/Day Years Used Date Smoking Tobacco: Never Smokeless Tobacco: Never Tobacco Cessation:Counseling Given: Not Answered Alcohol Use Standard Drinks/Week Comments Defer 0 [...] not to disclose 2021 10:14 AM EDT Last Filed Vital Signs Vital Sign Reading [...] Mass Index 29.98 01/14/2025 10:48 AM EDT Plan of Treatment Health Maintenance Due Date Last Done Comments CT Colonography 1955 Colonoscopy 1955 Colorectal Cancer Screening 1955 FIT DNA/Cologuard 1955 FIT 1955 FOBT 1955 Sigmoidoscopy 1955 Alcohol/Substance Use Screening 1967 Hepatitis C Screening 1973 Depression Screening 02/15/2024 02/14/2023, 02/15/20 23 Influenza Vaccine (#1) 2024 , 07/19/2022, 06/23/2019, Additional history exists COVID-19 Vaccine ( season) 2024 07/29/2024, 07/29/2024, 10/07/2021, Additional history exists SDOH Screening 04/08/2025 04/08/2024 Tobacco Screening 04/15/2025 04/15/2024 DTaP/Tdap/Td Vaccines (3 - Td or Tdap) 09/30/2028 09/30/2018, 02/22/2011 Lipid Panel 04/15/2029 04/15/2024, 06/25, 12/23/2020 Zoster Vaccines Completed 06/06/2023, 03/24, 07/15/2017 RSV Patients and Patients Aged 60 years or older Completed 01/11/2025 Pneumococcal Vaccine: 50+ Years Completed 01/14/2025, 06/06/2000 HIB Vaccines Aged Out No longer eligi ble based on patient's age to complete this topic HPV Vaccines Aged Out No longer eligi ble based on patient's age to complete this topic Hepatitis A Vaccines Aged Out No long er eligible based on patient's age to complete this topic Hepatitis B Vaccines Aged Out No long er eligible based on patient's age to complete this topic IPV Vaccines Aged Out No longer eligi ble based on patient's age to complete this topic Meningococcal Vaccine Aged Out No cynthia ashlie eligible based on patient's age to complete this topic RSV under 20 months Aged Out No longe r eligible based on patient's age to complete this topic Rotavirus Vaccines Aged Out No longer eligible based on patient's age to complete this topic Procedures Procedure Name Priority Date/Time Associated Diagnosis Comments LIPID PANEL, STANDARD Routine 04/15/2024 10:08 AM EDT Essential hypertension Pure hypercholesterolemia from Last 3 Months or Most Recently Relevant to Health Maintenance Results * (ABNORMAL) Lipid Panel, Standard (04/15/2024 10:08 AM EDT) Triglycerides 103 <150 mg/dL [facility] Comment:Desirable Triglyceri de: less than 150 mg/dLBorderline High Triglyceride 150-199 mg/dLHigh Triglyceride: 200-499 mg/dLVery High Triglyceride: greater than or equal to 5OO mg/dL Cholesterol 190 <200 mg/dL [facility] Comment:Desirable Cholestero l: less than 200 mg/dLBorderline High Cholesterol: 200-239 mg/dLHigh Cholesterol: greater than 239 mg/dL LDL Cholesterol Calculated 102(H) <100 mg/dL [facility] Comment:Desirable LDL: less than 100 mg/dLNear Optimal/Above Optimal LDL: 110- 129 mg/dLBorderline High LDL: 130-159 mg/dLHigh LDL: 160-189 mg/dLVery High LDL: greater than or equal to 190 mg/dL HDL Cholesterol 68 >40 mg/dL [facility] Comment:Desirable HDL: great er than 40 mg/dL Note: This HDL assay may give artificially low results in patients with liver disease. Blood Venous blood specimen / Unknown 04/15/2024 10:08 AM EDT 04/15/2024 1:58 PM EDT us Dayanna Smith MD LAB BLOOD ORDERABLES Final Resul t [facility] [address] [place] [phone] from Last 3 Months or Most Recently Relevant to Health Maintenance Insurance [facility] STANDARD [facility] DUAL COMPLETE * Guarantor: David Joe Account Type Relation to Patient Date of Phone Billing Address Personal/Family Self [address] [place] Care Teams Shot Man Relationship Specialty Start Date End Date Dayanna Smith MD [address] [place] [address] PCP - General Family Medicine 07/28/15
--- OUTSIDE RECORDS SUMMARY | 2025-01-15 12:45 | XMS_ITS | Encounter Summary ---
Author Organization [employer] Address 75 [facility] 7[address] [place] [address] Care Team Providers Care Workers Compensation Claims Assistant Name Role Phone Dayanna Smith MD Primary Care Provider [phone] Reason for Referral * Consultation (Routine) - Authorized Specialty Diagnoses / Procedures Referred By Contac t Referred To Contact Gastroenterology Diagnoses Encounter for screening for malignant neoplasm of colon Dayanna Smith MD [address] [place], [place] Phone: tel: fax: Liliana Fernandez MD [address] [address] Phone: tel: fax: Referral ID Status Reason Start Date Expiration Date Visits Requested Visits Authorized [id number] Authorized Specialty Services Required 01/14/2025 01/14/2026 1 1 * Consultation (Urgent) - Authorized Specialty Diagnoses / Procedures Referred By Contac t Referred To Contact Pain Medicine Diagnoses Neck pain, chronic Dayanna Smith MD [address] [place], [place] Phone: tel: fax: Minh Ramirez MD [address] [place], [place] Phone: tel: fax: Referral ID Status Reason Start Date Expiration Date Visits Requested Visits Authorized [id number] Authorized Specialty Services Required 01/14/2025 01/14/2026 1 1 * Consultation (Urgent) - Authorized Specialty Diagnoses / Procedures Referred By Contac t Referred To Contact Podiatry Diagnoses Ingrown nail of great toe Dayanna Smith MD [address] [place] [address] Phone: tel: fax: Hitesh Faulkner, DPM [address] [address] Phone: tel: fax: Referral ID Status Reason Start Date Expiration Date Visits Requested Visits Authorized [id number] Authorized Specialty Services Required 01/14/2025 01/14/2026 1 1 Reason for Visit * Reason Comments Follow-up Htn Encounter Details Date Type Department Care Team ([facility] st Contact Info) Description 01/14/2025 11:15 AM EDT Office Visit [facility] [address] [place] [address] Dayanna Smith MD [address] [place] [address] Essential hypertension (Primary Dx); Pure hypercholesterolemia; Neck [...] documented as of this encounter Care Teams Workers Compensation Claims Assistant Relationship Specialty Start Date End Date Dayanna Smith MD [address] [place] [address] PCP - General Family Medicine 07/28/15 documented as of this encounter
[2025-01-15 13:15] LABS: Anion Gap 13 (12-20); Blood Urea Nitrogen 28 mg/dL (9-16); Calcium 9.8 mg/dL (8.4-10.2); Carbon Dioxide 26 mmol/L (22-29); Chloride 105 mmol/L (96-108); Estimated Glomerular Filt Rate 51; Glucose Random 100 mg/dL (60-115); Hematocrit 42.2 % (42.0-52.0); Hemoglobin 13.6 g/dl (14.0-18.0); Mean Corpuscular HGB Conc 32.2 g/dl (31.0-36.0); Mean Platelet Volume 9.7 fL (9.4-12.4); Platelet Count 229 X10*3/uL (160-400); Potassium 3.4 mmol/L (3.3-5.1); Red Blood Count 4.85 X10*6/uL (4.60-5.80); Red Cell Distribution Width 14.2 % (11.0-16.0); Sodium 141 mmol/L (135-145); White Blood Count 5.9 X10*3/uL (4.8-10.8)
[2025-01-15 13:17] LABS: Appearance Urine Clear; Color Urine Yellow; Glucose Urine UA Negative (Negative); Leukocyte Esterase Urine Negative (Negative); Nitrite Urine Negative (Negative); Specific Gravity - Urine >= 1.030 (1.005-1.025); Urine Blood Negative (Negative); Urine Ketones Trace mg/dL (Negative); Urine Protein Trace mg/dL (Neg-Trace)
[2025-01-15 13:45] LABS: Total Protein Urine Random 18 mg/dL (<12)
== END 2025-01-15 10:53 | disposition home or self-care (01) ==
LOC: HO.10HDL 10:52
PROVIDERS: Visit Provider Internal Medicine Hypertension Specialist
DX: I10 Essential (primary) hypertension (principal); N18.9 Chronic kidney disease, unspecified
CPT/HCPCS: 36415; 80048; 81003; 82570; 84156; 85027; 99212

== ENCOUNTER 2025-03-06 09:08 | Outpatient (REF) | payer OTHER, SELFPAY ==
--- OUTSIDE RECORDS SUMMARY | 2025-03-06 09:29 | XMS_ITS | Clinical Summary ---
Author Organization [facility] Facility Address [address] [place] [id number] Care Team Providers Care Senior Recruitment Consultant Name Role Phone Dayanna Smith MD Primary Care Provider [phone] Medications albuterol HFA (PROVENTIL HFA;VENTOLIN HFA) 108 (90 Base) MCG/ACT inhaler 10/13/2022 Active gabapentin (NEURONTIN) 300 MG capsule Take 300 mg by mouth in the morning and 300 mg in the evening. 09/27/2022 Active hydroCHLOROthia zide 25 MG tablet Take 25 mg by mouth 1 (one) time each day 10/04/2022 Active ibuprofen (ADVIL,MOTRIN) 800 MG tablet Take 800 mg by mouth in the morning and 800 mg in the evening and 800 mg before bedtime. 09/28/2022 Active losartan (COZAAR) 25 MG tablet Take 1 tablet by mouth 1 (one) time each day 10/13/2022 Active meclizine (ANTIVERT) 25 MG tablet Take 25 mg by mouth 1 (one) time each day if needed 10/09/2022 Active simvastatin (ZOCOR) 20 MG tablet Take 20 mg by mouth 1 (one) time each day in the evening 09/22/2022 Active traZODone (DESYREL) 100 MG tablet Take 1 tablet by mouth 1 (one) time each day 08/18/2022 Active Active Problems Problem Noted Date Diagnosed Date Essential (primary) hypertension 10/18/2022 Social History Tobacco Use Types Packs/Day Years Used Date Smoking Tobacco: Never Assessed Sex and Gender Information Value Date Recorded Sex Assigned at Not on file Legal Sex Male 1:08 PM EDT Gender Identity Not on file Sexual Orientation Not on file Plan of Treatment Health Maintenance Due Date Last Done Comments Pneumococcal Vaccine: 50+ Ye ars (1 of 2 - PCV) 1974 Colorectal Cancer Screening: Annual FOBT 2004 Colorectal Cancer Screening: Colonoscopy 2004 Colorectal Cancer Screening: Sigmoidoscopy 2004 Influenza Vaccine (Season Ended) 2025 Hepatitis B Vaccine Aged Out No longe r eligible based on patient's age to complete this topic Insurance [facility] Medicare [facility] Medicare Care Teams Senior Recruitment Consultant Relationship Specialty Start Date End Date Dayanna Smith MD [address] [place] [id number] PCP - General Family Medicine 05/08/22
[2025-03-06 14:22] LABS: Anion Gap 10 (12-20); Blood Urea Nitrogen 20 mg/dL (9-16); Calcium 9.7 mg/dL (8.4-10.2); Carbon Dioxide 29 mmol/L (22-29); Chloride 101 mmol/L (96-108); Estimated Glomerular Filt Rate 51; Glucose Random 94 mg/dL (60-115); Magnesium 2.2 mg/dL (1.6-2.6); Potassium 3.4 mmol/L (3.3-5.1); Sodium 137 mmol/L (135-145)
[2025-03-06 14:56] LABS: Folate 5.9 ng/mL (> or = 4.0); Vitamin B12 592 pg/mL (200-900)
== END 2025-03-06 09:09 | disposition home or self-care (01) ==
LOC: HO.CHCLDS 09:08
PROVIDERS: Visit Provider Internal Medicine
DX: R20.2 Paresthesia of skin (principal)
CPT/HCPCS: 36415; 80048; 82607; 82746; 83735

== ENCOUNTER 2025-04-01 10:37 | Outpatient (REF) | payer OTHER, SELFPAY ==
--- NOTE | ~2025-04-01 | US_ITS ---
EXAMINATION: US TRIPLEX LOWER EXTREMITY, BILATERAL CLINICAL INFORMATION: Bilateral lower extremity edema. Rule out DVT. COMPARISON: None available. TECHNIQUE: Color-flow triplex imaging with spectral analysis and compression Doppler were performed on the bilateral lower extremities. FINDINGS: Respiratory variation, normal compression and augmented flow are noted throughout the bilateral lower extremities. The visualized common femoral vein, superficial femoral vein, profunda femoral vein, popliteal vein and midcalf peroneal and posterior tibial venous segments show no evidence of deep venous thrombosis bilaterally. There is no Khan's cyst. A reactive appearing left groin lymph node is noted incidentally. US/US venous duplex LE BI IMPRESSION: No evidence of deep venous thrombosis involving the bilateral lower extremities. Electronically signed by: Jitendra Martinez MD 04/01/2025 11:38 AM EDT
--- OUTSIDE RECORDS SUMMARY | 2025-04-01 11:40 | XMS_ITS | Clinical Summary ---
Author Organization [facility] Address [address] [place] [address] Phone Care Team Providers Care Boat Motor Mechanic Name Role Phone Jenna Herrera MD Primary Care Provider [phone] Allergies No known active allergies Encounters Date Type Department Care Team Description 02/27/2025 11:26 AM EDT - 02/27/2025 1:18 PM EDT Emergency [facility] [address] [place] [address] Blood blister (Primary Dx) Discharge Disposition: Home or Self Care from Last 3 Months Surgical History Surgery Date Site/Laterality Comments NECK SURGERY PROCEDURE: HISTORICAL NECK SURGERY; COMMENT: disc surgery 2005 APPENDECTOMY PROCEDURE: HISTORICAL APPENDECTOMY; COMMENT: in the Medical History Medical History Date Comments HTN (hypertension) DX:HTN (hyper tension) Family History Medical History Relation Name Comments Blindness Neg Hx Cataracts Neg Hx Glaucoma Neg Hx Macular degeneration Neg Hx Strabismus Neg Hx Relation Name Status Comments Father alcoholism Mother lung cancer Sister Alive not known Son Alive Social History Tobacco Use Types Packs/Day Years Used Date Smoking Tobacco: Never Smokeless Tobacco: Never Alcohol Use Standard Drinks/Week Comments No 0 (1 standard drink = 0.6 oz pur e alcohol) Sex and Gender Information Value Date Recorded Sex Assigned at Not on file Legal Sex Male 12:47 PM EST Gender Identity Not on file Sexual Orientation Not on file Obstetrics History Last Filed Vital Signs Vital Sign Reading Time Taken Comments Blood Pressure 110/78 02/27/2025 10:40 AM EDT Pulse 86 02/27/2025 10:40 AM EDT Temperature 36.6 C (97.9 F) 02/27/2025 10:40 AM EDT Respiratory Rate 14 02/27/2025 10:40 AM EDT Oxygen Saturation 96% 02/27/2025 10:40 AM EDT Inhaled Oxygen Concentration - - Weight 95.3 kg (210 lb) 02/27/2025 10:40 AM EDT Height 175.3 cm (5' 9 ) 02/27/2025 10:40 AM EDT Body Mass Index 31.01 02/27/2025 10:40 AM EDT Plan of Treatment Health Maintenance Due Date Last Done Comments Colorectal Cancer Screening: Colonoscopy 08/22/2022 Falls Risk Assessment 08/22/2022 Hepatitis C Screening 08/22/2022 Medicare Annual Wellness Visit 08/22/2022 Social Influencers of Health Screening 08/22/2022 Depression Screening 02/15/2024 02/14/2023 COVID-19 Vaccine ( season) 2025 07/29/2024, 10/07/2021, 12/21/2020 Hypertension/CHF/CAD Annual BMP Blood Test 02/27/2025 Influenza Vaccine (#1) 2025 , 07/19/2022, 06/23/2019, Additional history exists DTaP,Tdap,and Td Vaccines (3 - Td or Tdap) 09/30/2028 09/30/2018, 02/22/2011 Cholesterol Screening (Lipid Panel) 04/15/2029 04/15/2024 Zoster Vaccines Completed 06/06/2023, 03/24, 07/15/2017 RSV Immunization Adult Patients Completed 01/11/2025 Pneumococcal Vaccine: 50+ Years Completed [...] on patient's age to complete this topic MMR Vaccines Aged Out No longer eligi ble based on patient's age to complete this topic Meningococcal ACWY Vaccine Aged Out N o longer eligible based on patient's age to complete this topic Meningococcal B Vaccine Aged Out No l onger eligible based on patient's age to complete this topic RSV Immunization Patients Under 20 months Aged Out No longer eligible based on patient's age to complete this topic Varicella Vaccines Aged Out No longer eligible based on patient's age to complete this topic Procedures Procedure Name Priority Date/Time Associated Diagnosis Comments XR FINGERS 2+ VIEWS RIGHT STAT 02/27/2025 10:56 AM EDT from Last 3 Months Results * XR Fingers 2+ Views Right (02/27/2025 10:56 AM EDT) Anatomical Region Laterality Modality Upper Extremities, Fingers Right Radio graphic Imaging 02/27/2025 11:2 2 AM EDT Impressions 02/27/2025 11:22 AM EDT FINDINGS/IMPRESSION: No acute fracture or dislocation. Soft tissue swelling at the distal aspect of the thumb. No radiodense foreign body. Scattered degenerative changes seen throughout the hand. -------- FINAL REPORT -------- Dictated By: KRYSTAL SANCHEZ Dictated Date: 02/27/2025 11:22 ET Assigned Physician: KRYSTAL SANCHEZ Reviewed and Electronically Signed By: KRYSTAL SANCHEZ Signed Date: 02/27/2025 11:22 ET Workstation ID: [id number] Transcribed By: Self Edit Transcribed Date: 02/27/2025 11:22 ET Narrative 02/27/2025 11:22 AM EDT XR FINGERS 2+ VIEWS RIGHT INDICATION: Pain TECHNIQUE: XR FINGERS 2+ VIEWS RIGHT COMPARISON: No priors available. Procedure Note Krystal Sanchez MD - 02/27/2025 XR FINGERS 2+ VIEWS RIGHT INDICATION: Pain TECHNIQUE: XR FINGERS 2+ VIEWS RIGHT COMPARISON: No priors available. IMPRESSION: FINDINGS/IMPRESSION: No acute fracture or dislocation. Soft tissueswelling at the distal aspect of the thumb. No radiodense foreign body.Scattered degenerative changes seen throughout the hand. -------- FINAL REPORT -------- Dictated By: KRYSTAL SANCHEZ Dictated Date: 02/27/2025 11:22 ET Assigned Physician: KRYSTAL SANCHEZ Reviewed and Electronically Signed By: KRYSTAL SANCHEZ Signed Date: 02/27/2025 11:22 ET Workstation ID: [id number] Transcribed By: Self Edit Transcribed Date: 02/27/2025 11:22 ET us Carol Zhang DO IMG XR PROCEDURES Final R esult from Last 3 Months Insurance [employer] MEDICARE Care Teams Boat Motor Mechanic Relationship Specialty Start Date End Date Jenna Hererra MD [address] [place] [phone] PCP - General 05/26/15
--- OUTSIDE RECORDS SUMMARY | 2025-04-01 11:40 | XMS_ITS | Clinical Summary ---
Author Organization [facility] Facility Address [address] [place] [address] Care Team Providers Care Manager Content Name Role Phone Dayanna Smith MD Primary Care Provider [phone] Medications albuterol HFA (PROVENTIL HFA;VENTOLIN HFA) 108 [...] Colorectal Cancer Screening: Sigmoidoscopy 2004 Influenza Vaccine (#1) 2025 Hepatitis B Vaccine Aged Out No longe r eligible based on patient's age to complete this topic Insurance [facility] Medicare [facility] Medicare Care Teams Manager Content Relationship Specialty Start Date End Date Dayanna Smith MD [address] [place] [phone] PCP - General Family Medicine 05/08/22
== END 2025-04-01 10:38 | disposition home or self-care (01) ==
LOC: HO.US 10:37
PROVIDERS: PCP Student in an Organized Health Care Education/Training Program; Visit Provider Student in an Organized Health Care Education/Training Program
DX: R60.0 Localized edema (principal)
CPT/HCPCS: 93970

== ENCOUNTER → 2025-04-01 10:43 | Outpatient (BNV) | payer OTHER, SELFPAY | PROVIDERS: PCP Student in an Organized Health Care Education/Training Program; Visit Provider Radiology Diagnostic Radiology | DX: R60.0 Localized edema (principal) | CPT/HCPCS: 93970 ==

== ENCOUNTER 2025-07-07 15:35 | Outpatient (REF) | payer OTHER, MEDICAID, SELFPAY ==
--- NOTE | ~2025-07-07 | US_ITS ---
EXAMINATION: US TRIPLEX LOWER EXTREMITY, RIGHT CLINICAL INFORMATION: Right calf pain COMPARISON: None available. TECHNIQUE: Color-flow triplex imaging with spectral analysis and compression Doppler were performed on the right lower extremity. FINDINGS: Respiratory variation, normal compression and augmented flow are noted throughout the right lower extremity. The visualized common femoral vein, superficial femoral vein, profunda femoral vein, popliteal vein and midcalf peroneal and posterior tibial venous segments show no evidence of deep venous thrombosis. US/US venous duplex LE RT IMPRESSION: No evidence of deep venous thrombosis involving the right lower extremity. Electronically signed by: Troy Santana MD 07/07/2025 05:04 PM EDT
--- OUTSIDE RECORDS SUMMARY | 2025-07-07 10:00 | XMS_ITS | Encounter Summary ---
Author Organization [employer] Address [address] [facility] [address] [place] [address] Care Team Providers Care Tariff Compiler Name Role Phone Primo Block MD Primary Care Prov ider Reason for Referral * Imaging (STAT) - Authorized Specialty Diagnoses / Procedures Referred By Contac t Referred To Contact Cardiology Diagnoses Right calf pain Procedures Vascular US lower extremity venous duplex right Shanelle Coello MD [address] [place] [address] Phone: tel: fax: [address] Phone: tel: fax: Referral ID Status Reason Start Date Expiration Date Visits Requested Visits Authorized [id number] Authorized Perform Procedure 07/07/2026 1 1 Reason for Visit * Reason Comments Leg Pain Encounter Details Date Type Department Care Team ([facility] st Contact Info) Description 07/07/2025 10:00 AM EDT Office Visit [facility] [address] [place] [address] Shanelle Coello MD [address] [place] [address] Right calf pain (Primary Dx) Social History Tobacco Use Types Packs/Day Years Used Date Smoking Tobacco: Never Smokeless Tobacco: Never Tobacco Cessation:Counseling Given: Not Answered Alcohol Use Standard Drinks/Week Comments Defer 0 (1 standard drink = 0.6 oz pur e alcohol) Depression Answer Date Recorded Patient Health Questionnaire-9 Score 4 02/14/2023 Housing Stability Answer Date Recorded What is your housing situation today? I have laya sing 07/09/[address] you li [...] Access Answer Date Recorded Internet Access Q1 No 04/10/2025 Internet Access Q2 I do not want or need it 03/24 Sex and Gender Information Value Date Recorded Sex Assigned at Male 07/24/2022 10:14 AM EDT Legal Sex Male 10:14 AM EDT Gender Identity Choose not to disclose 10:14 AM EDT Sexual Orientation Choose not to disclose 2021 10:14 AM EDT documented as of this encounter Last Filed Vital Signs Vital Sign Reading Time Taken Comments Blood Pressure 117/77 07/07/2025 10:30 AM EDT Pulse 69 07/07/2025 10:30 AM EDT Temperature 36.6 C (97.9 F) 07/07/2025 10:30 AM EDT Respiratory Rate 16 07/07/2025 10:30 AM EDT Oxygen Saturation 96% 07/07/2025 10:30 AM EDT Inhaled Oxygen Concentration - - Weight 94.8 kg (209 lb) 07/07/2025 10:30 AM EDT Height - - Body Mass Index 30.86 06/23/2025 1:12 PM EDT documented in this encounter Progress Notes * Shanelle Coello MD - 07/07/2025 10:00 AM EDT SUBJECTIVE David Joe is a 69 y.o. adult patient of Primo Clark MD who presents for right leg swelling and pain. HPI is here because his right leg has been swollen and painful for the past 1 month. Reports no prior falls. He did trip and fall onto a tree branch hitting the right collins many months ago but he did not have calf swelling after that injury. Says pain is worse when walking and swelling worse at end of the day. He has not had SOB, palpitations, cough. No history of cancer. He does have chronic neck and low back pain. No night sweats, weight loss. Review of Systems Constitutional: Negative for unexpected weight change. Respiratory: Negative for cough and shortness of breath. Cardiovascular: Positive for leg swelling. Negative for chest pain and palpitations. OBJECTIVE Vitals: 07/07/25 1030 BP: 117/77 BP Location: Left arm Patient Position: Sitting BP Cuff Size: Adult Pulse: 69 Resp: 16 Temp: 97.9 ??F (36.6 ??C) TempSrc: Temporal SpO2: 96% Weight: 209 lb (94.8 kg) Physical Exam Constitutional: Appearance: is not toxic-appearing. HENT: Head: Normocephalic. Mouth/Throat: Mouth: Mucous membranes are moist. Cardiovascular: Rate and Rhythm: Normal rate and regular rhythm. Pulses: Normal pulses. Heart sounds: Normal heart sounds. No murmur heard. No friction rub. No gallop. Comments: Visible small varicose veins anterior and lateral right collins Pulmonary: Effort: Pulmonary effort is normal. Breath sounds: Normal breath sounds. No wheezing. Musculoskeletal: General: Tenderness (calf tenderness right leg) present. Right lower leg: Edema (420 cm circumference) present. Left lower leg: No edema (380 cm circumference). Lymphadenopathy: Cervical: No cervical adenopathy. Skin: Findings: Lesion (erythematous non-blanching patch right collins) present. Neurological: General: No focal deficit present. Mental Status: is alert. Psychiatric: Mood and Affect: Mood normal. Behavior: Behavior normal. Assessment/Plan Assessment/Plan Diagnoses and all orders for this visit: Right calf pain: On simplified Wells score, he had a score of 3 , so I will get a RLE duplex. No appreciable groin lymphadenopathy. He does have some varicose veins visible on the anterior right collins. If no DVT, he can RTC for further evaluation. - Vascular US lower extremity venous duplex right; Future documented in this encounter Plan of Treatment Not on file documented as of this encounter Visit Diagnoses Diagnosis Right calf pain- Primary documented in this encounter Additional Health Concerns Assessment Noted Time PHQ-9 Depression Total Score: 4 02/15/20 23 10:15 AM EDT documented as of this encounter Care Teams Tariff Compiler Relationship Specialty Start Date End Date Primo Block MD [address] [place] [id number] PCP - General Internal Medicine 06/29/25 documented as of this encounter
--- OUTSIDE RECORDS SUMMARY | 2025-07-07 18:19 | XMS_ITS | Encounter Summary ---
Author Organization [employer] Address [address] [facility] [address] [place] [address] Care Team Providers Care Information Systems Supervisor Name Role Phone Primo Block MD Primary Care Prov ider Encounter Details Date Type Department Care Team (Late st Contact Info) Description 07/07/2025 Orders Only [facility] [address] [place], [place] [phone] Shanelle Coello MD [address] [place] [address] Social History Tobacco Use Types Packs/Day Years [...] on file documented as of this encounter Procedures Procedure Name Priority Date/Time Associated Diagnosis Comments US VENOUS DUPLEX LE RT Routine 07/07/2025 4:42 PM EDT documented in this encounter Results * US VENOUS DUPLEX LE RT (07/07/2025 4:42 PM EDT) Anatomical Region Laterality Modality Abdomen Ultrasound 07/07/2025 4:42 PM EDT Narrative 07/07/2025 5:07 PM EDT [place] [address] Ultrasound Report Signed Patient: David Joe MR#: [id number] : 1955 Acct:[id number] Age/Sex: 69 / M ADM Date: 07/07/25 Loc: HO.US Attending Dr: Shanelle Coello MD Ordering Physician: Shanelle Coello MD Date of Service: 07/07/25 Procedure(s): US venous duplex LE RT Accession Number(s): [id number] cc: Dayanna Smith MD; Shanelle Coello MD Reason for Exam: right calf pain EXAMINATION: US TRIPLEX LOWER EXTREMITY, RIGHT CLINICAL INFORMATION: Right calf pain COMPARISON: None available. TECHNIQUE: Color-flow triplex imaging with spectral analysis and compression Doppler were performed on the right lower extremity. FINDINGS: Respiratory variation, normal compression and augmented flow are noted throughout the right lower extremity. The visualized common femoral vein, superficial femoral vein, profunda femoral vein, popliteal vein and midcalf peroneal and posterior tibial venous segments show no evidence of deep venous thrombosis. US/US venous duplex LE RT IMPRESSION: No evidence of deep venous thrombosis involving the right lower extremity. Electronically signed by: Troy Santana MD 07/07/2025 05:04 PM EDT RP Dictated By: Troy Santana MD Signed By: <Electronically signed by Troy Santana MD in OV> 07/07/25 170 DD/ 164 TD/TT: 07/07/25 [address] [place]: Procedure Note Donotuseinterpreter, Image - 07/07/[address] [address] Ultrasound Report Signed Patient: Corey Joe#: [id number] : 5Acct:[id number] Age/Sex: 69 / MADM Date: 07/07/25 Loc: .US Attending Dr: Shanelle Coello MD Ordering Physician: Shanelle Coello MD Date of Service: 07/07/25 Procedure(s): US venous duplex LE RT Accession Number(s): [id number] cc: Dayanna Smith MD; Shanelle Coello MD Reason for Exam: right calf pain EXAMINATION: US TRIPLEX LOWER EXTREMITY, RIGHT CLINICAL INFORMATION: Right calf pain COMPARISON: None available. TECHNIQUE: Color-flow triplex imaging with spectral analysis and compression Doppler were performed on the right lower extremity. FINDINGS: Respiratory variation, normal compression and augmented flow are noted throughout the right lower extremity. The visualized common femoral vein, superficial femoral vein, profunda femoral vein, popliteal vein and midcalf peroneal and posterior tibial venous segments show no evidence of deep venous thrombosis. US/US venous duplex LE RT IMPRESSION: No evidence of deep venous thrombosis involving the right lower extremity. Electronically signed by: Troy Santana MD 07/07/2025 05:04 PM EDT RP Dictated By: Troy Santana MD Signed By: <Electronically signed by Troy Santana MD in OV> 07/07/25 1704 DD/ 1642 TD/TT: 07/07/25 [address] [place]: us Shanelle Coello MD [facility] US PROCEDURES Final Resul t documented in this encounter Visit Diagnoses Not on filedocumented in this encounter Additional Health Concerns Assessment Noted Time PHQ-9 Depression Total Score: 4 02/15/20 23 10:15 AM EDT documented as of this encounter Care Teams Information Systems Supervisor Relationship Specialty Start Date End Date RenaePrimo Flores MD [address] [place] [phone] PCP - General Internal Medicine 06/29/25 documented as of this encounter
--- OUTSIDE RECORDS SUMMARY | 2025-07-07 18:19 | XMS_ITS | Clinical Summary ---
Author Organization [employer] Address [address] [facility] 7t [place] [address] Care Team Providers Care Pulley Man Name Role Phone Primo Block MD Primary Care Prov ider Allergies No known active allergies Medications meclizine (Antivert) 25 MG tablet TAKE 1 [...] at bedtime. 150 mL 2 024 Active Diclofenac Sodium 1 % gel APPLY TOPICALLY IF NEEDED EACH DAY FOR RIGHT ARM PAIN BELOW SHOULDER 100 g 024 Active simvastatin (Zocor) 20 MG tablet TAKE [...] a week 120 mL 3 025 Active triamcinolone (Kenalog) 0.1 % ointmentIndicat ions:Venous stasis dermatitis Apply topically 2 times daily. 30 g Active Acetaminophen 500 MG capsule Take one to two tablets as needed for fever or pain every 6 hours 30 capsule Active furosemide (Lasix) 20 MG tablet TAKE 1 TABLET BY MOUTH EVERY DAY 90 tablet Active traZODone (Desyrel) 100 MG tabletIndicatio ns:Depression, unspecified depression type TAKE 1 TABLET BY MOUTH EVERY DAY AFTER A MEAL 90 tablet 1 Active losartan (Cozaar) 100 MG tablet TAKE 1 TABLET BY MOUTH EVERY DAY IN THE MORNING 90 tablet 3 Active meloxicam (Mobic) 7.5 MG tablet Take 1 tablet (7.5 mg) by mouth 2 times daily. 60 tablet 11 025 2025 Active clotrimazole (Lotrimin) 1 % creamIndication s:Tinea cruris Apply topically 2 times daily for 28 days. 30 g 5 025 2024 Active gabapentin (Neurontin) 300 MG capsuleIndicati ons:Pain Take 1 capsule (300 mg) by mouth 2 times daily. 60 capsule 3 Active fluticasone-stan meterol (Advair) 230-21 MCG/ACT inhalerIndicati ons:Mild intermittent asthma without complication Inhale 2 puffs in the morning and at bedtime. Rinse mouth with water after use to reduce aftertaste and incidence of candidiasis. Do not swallow. 12 g 11 Active albuterol (ProAir HFA) 108 (90 Base) MCG/ACT inhaler Inhale 2 puff four times a day as needed 021 2024 Discontinued fluticasone-stan meterol (Advair) 230-21 MCG/ACT inhalerIndicati ons:Mild intermittent asthma without complication INHALE 2 PUFFS IN THE MORNING AND AT BEDTIME. RINSE MOUTH WITH WATER AFTER USE. DO NOT SWALLOW. 12 g 11 024 2024 Discontinued(R eorder (will not trigger notification to Pharmacy)) sucralfate (Carafate) 1 GM/10ML suspension TAKE 2 TEASPOONSFUL (10 ML) BY MOUTH EVERY 6 (SIX) HOURS. 1200 mL 05/24/2 024 2024 Discontinued celecoxib (CeleBREX) 200 MG capsuleIndicati ons:Acute pain of right shoulder TAKE 1 CAPSULE BY MOUTH TWICE A DAY 60 capsule 024 2024 Discontinued baclofen (Lioresal) 5 MG tablet Take 1 tablet (5 mg) by mouth 3 times daily for 7 days. 21 tablet 025 2024 Discontinued triamcinolone (Kenalog) 0.1 % cream Apply topically if needed in the morning and at bedtime (pain and swelling). 30 g 2 025 2024 Discontinued meloxicam (Mobic) 7.5 MG tablet Take 1 tablet (7.5 mg) by mouth 2 times daily. 60 tablet 11 025 2024 Discontinued(R eorder (will not trigger notification to Pharmacy)) gabapentin (Neurontin) 300 MG capsuleIndicati ons:Pain TAKE 1 CAPSULE BY MOUTH TWICE A DAY 60 capsule 3 025 2024 Discontinued(R eorder (will not trigger notification to Pharmacy)) carbamide peroxide (Debrox) 6.5 % otic solutionIndicat ions:Impacted cerumen of left ear Administer 5-10 drops into affected ear(s) 2 times daily for 4 days. 30 mL 025 2024 Discontinued Active Problems Problem Noted Date Diagnosed Date Lower extremity edema 06/25/2025 Assessment & Plan (06/25/2025 2:41 PM EDT): Will refer to cardiology for evalaution, he has history of shortness of breath due to asthma, Tinea cruris 06/23/2025 Assessment & Plan (06/23/2025 2:03 PM EDT): Keep area dry at all times Clotrimazole cream BID x 1 week Impacted cerumen of left ear 04/20/2025 Assessment & Plan (06/23/2025 2:04 PM EDT): Debrox sent to his Pharmacy Use affected ear daily x 5 days F/u with RN for ear irrigation Assessment & Plan (04/20/2025 2:26 PM EDT): Advised against use of Q-tips or other ear device market development specialist. Use Debrox eardrops 4 times per day for at least 1 week and return to clinic for ear lavage with RN Follow-up with PCP Gastroesophageal reflux disease without esophagi tis 11/28/2023 [...] Center 11/28/2023 11:00 AM Dayanna Smith MD [facility] I have also referred him to gastroenterology [...] for orthopedic done by his PCP to [facility] occupational therapy specialist to check status of referral -advised [...] loss -I called his son -David Joe to # [phone] -was not able to reach but left a voice mail informing plan for right arm pain to see if son can help with process for pt to complete images and consults Depressive disorder 07/28/2015 Essential hypertension 07/28/2015 Assessment & Plan (06/25/2025 2:40 PM EDT): Told to keep a blood pressure log, keep low sodium diet and exercise as tolerated, follow up in 1-2 months Assessment & Plan (05/31/2023 12:24 PM EDT): [...] Encounters Date Type Department Care Team Description 07/07/2025 10:00 AM EDT Office Visit [facility] [address] [place] [address] Shanelle Coello MD Right calf pain (Primary Dx) 07/07/2025 Orders Only [facility] MED & PEDS [address] [place] [address] Shanelle Coello MD 07/07/2025 Travel 07/06/2025 Telephone [facility] [address] [place] [address] Primo Block MD Cologuard Outreach Unreturned Kit Reminder 06/25/2025 1:45 PM EDT Telemedicine [facility] MED & PEDS [address] [place] [address] Primo Block MD Essential hypertension (Primary Dx); Pain; Mild intermittent asthma without complication; Lower extremity edema 06/25/2025 Refill [facility] MED & PED[facility] [address] [place] [address] Primo Block MD Mild intermittent asthma without complication 06/25/2025 Travel 06/23/2025 1:40 PM EDT Office Visit [facility] [address] [place] [address] Mario Ho MD Tinea cruris (Primary Dx); Impacted cerumen of left ear 06/23/2025 Travel 06/23/2025 Telephone [facility] MED & PEDS [address] [place] [address] Dayanna Smith MD Walk-In 06/23/2025 Telephone [facility] MED & PEDS [address] [place] [address] Dayanna Smith MD Med Refill 06/23/2025 Refill [facility] MED & PED[facility] [address] [place] [address] Dayanna Smith MD Pain 05/31/2025 Refill [facility] MED & PED[facility] [address] [place] [address] Dayanna mSith MD 05/24/2025 Refill [facility] [address] [place] [address] Dayanna Smith MD Depression, unspecified depression type 05/07/2025 Telephone [facility] MED & PEDS [address] [place] [address] Dayanna Smith MD No Show 04/28/2025 1:00 PM EDT Clinical Support [facility] MED & PED[facility] [address] [place] [address] Susan He RN Bilateral impacted cerumen [H61.23] 04/28/2025 Travel 04/20/2025 2:20 PM EDT Office Visit [facility] [address] [place] [address] Marlena Galicia MD Bilateral impacted cerumen (Primary Dx) 04/20/2025 Travel 04/17/2025 3:15 PM EDT Office Visit [facility] MED & PEDS [address] [place] [address] Dayanna Smith MD Essential hypertension (Primary Dx); Bilateral leg edema 04/17/2025 Travel 04/14/2025 Refill [facility] [address] [place] [address] Tania Sun FNP 04/14/2025 Telephone [facility] MED [facility] [address] [place], [place] [phone] Tate Neff MD No Show 04/10/2025 Patient Outreach [facility] MEDICINE [address] [place], [place] [phone] Dayanna Smith MD Pre-visit Planning (SDOH screening negative and Tobacco screening negative) 04/06/2025 Refill [facility] MED & PED[facility] [address] [place], [place] [phone] Dayanna Smith MD from Last 3 Months Immunizations Immunization Administration Dates Next Due Influenza High-dose Quadriva [...] (209 lb) 07/07/2025 10:30 AM EDT Height 175.3 cm (5' 9 ) 06/23/2025 1:12 PM EDT Body Mass Index 30.86 06/23/2025 1:12 PM EDT Plan of Treatment Health Maintenance Due Date Last Done Comments CT Colonography 1955 Colonoscopy 1955 Colorectal Cancer Screening 1955 FIT DNA/Cologuard 1955 FIT 1955 FOBT 1955 Sigmoidoscopy 1955 Alcohol/Substance Use Screening 1967 Hepatitis C Screening 1973 Depression Screening 02/15/2024 02/14/2023, 02/15/20 COVID-19 Vaccine ( season) 2025 07/29/2024, 07/29/2024, 10/07/2021, Additional history exists Influenza Vaccine (#1) 2025 , 07/19/2022, 06/23/2019, Additional history exists SDOH Screening 04/10/2026 04/10/2025 Tobacco Screening 07/07/2026 07/07/2025 DTaP/Tdap/Td Vaccines (3 - Td or Tdap) [...] LE RT Routine 07/07/2025 4:42 PM EDT LIPID PANEL, STANDARD Routine 04/15/2024 10:08 AM EDT Essential hypertension Pure hypercholesterolemia from Last 3 Months or Most Recently Relevant to Health Maintenance Results * US VENOUS DUPLEX LE RT (07/07/2025 4:42 PM EDT) Anatomical Region Laterality Modality Abdomen Ultrasound 07/07/2025 4:42 PM EDT Narrative 07/07/2025 5:07 PM EDT [place] [address] Ultrasound Report Signed Patient: David Joe MR#: [id number] : 1955 Acct:[id number] Age/Sex: 69 / M ADM Date: 07/07/25 Loc: .US Attending Dr: Shanelle Coello MD Ordering Physician: Shanelle Coello MD Date of Service: 07/07/25 Procedure(s): US venous duplex LE RT Accession Number(s): [id number] cc: Dayanna Smith MD; Shanelle Coello MD [...] 05:04 PM EDT RP Dictated By: Troy Satnana MD Signed By: <Electronically signed by Troy Santana MD in OV> 07/07/25 170 DD/ 164 TD/TT: 07/07/25 165 Child Psychology Teacher: Procedure Note Donotuseinterpreter, Image - 07/07/[address] [address] Ultrasound Report Signed Patient: Corey Joe#: [id number] : 5Acct:[id number] Age/Sex: 69 / MADM Date: 07/07/25 Loc: .US Attending Dr: Shanelle Coello MD Ordering Physician: Shanelle Coello MD Date of Service: 07/07/25 Procedure(s): US venous duplex LE RT Accession Number(s): [id number] cc: Dayanna Smith MD; Shanelle Coello MD [...] in OV> 07/07/25 170 DD/ 164 TD/TT: 07/07/251649 Child Psychology Teacher: us Shanelle Coello MD IMG US PROCEDURES Final Resul t * (ABNORMAL) Lipid Panel, Standard (04/15/2024 10:08 AM EDT) Triglycerides 103 <150 mg/dL [facility] Comment:Desirable Triglyceri de: less than 150 mg/dLBorderline High Triglyceride 150-199 mg/dLHigh Triglyceride: 200-499 mg/dLVery High Triglyceride: greater than or equal to 5OO mg/dL Cholesterol 190 <200 mg/dL [facility] Comment:Desirable Cholestero l: less than 200 mg/dLBorderline High Cholesterol: 200-239 mg/dLHigh Cholesterol: greater than 239 mg/dL LDL Cholesterol Calculated 102(H) <100 mg/dL [facility] Comment:Desirable LDL: less than 100 mg/dLNear Optimal/Above Optimal LDL: 110- 129 mg/dLBorderline High LDL: 130-159 mg/dLHigh LDL: 160-189 mg/dLVery High LDL: greater than or equal to 190 mg/dL HDL Cholesterol 68 >40 mg/dL [facility] Comment:Desirable HDL: great er than 40 mg/dL Note: This HDL assay may give artificially low results in patients with liver disease. Blood Venous blood specimen / Unknown 04/15/2024 10:08 AM EDT 04/15/2024 1:58 PM EDT us Dayanna Smith MD LAB BLOOD ORDERABLES Final Resul t [facility] [address] [place] [phone] from Last 3 Months or Most Recently Relevant to Health Maintenance Insurance [facility] STANDARD [facility] DUAL COMPLETE Care Teams Pulley Man Relationship Specialty Start Date End Date Primo Block MD [address] [place] [phone] PCP - General Internal Medicine 06/29/25
--- OUTSIDE RECORDS SUMMARY | 2025-07-07 18:19 | XMS_ITS | Encounter Summary ---
Author Organization [employer] Address [address] [facility] 7t [place] [address] Care Team Providers Care Map Compiler Name Role Phone Dayanna Smith MD Primary Care Provider [phone] Primo Block MD Primary Care Prov ider Reason for Referral * Imaging (Routine) - Closed Specialty Diagnoses / Procedures Referred By Ranjit orantes Referred To Contact Cardiology Diagnoses Bilateral leg edema Procedures VASC US Lower Extremity Venous Duplex Bilateral Dayanna Smith MD [address] [place] [address] Phone: tel: fax: [address] Phone: tel: fax: Referral ID Status Reason Start Date Expiration Date V isits Requested Visits Authorized [id number] Closed Perform Procedure 04/01/2025 04/01/2026 1 1 Encounter Details Date Type Department Care Team (Late st Contact Info) Description 04/01/2025 Orders Only [facility] MED & PEDS [address] [place], [place] [phone] Dayanna Smith MD [address] [place], [place] [phone] Bilateral leg edema (Primary Dx) Social History Tobacco Use Types [...] Procedure Name Priority Date/Time Associated Diagnosis Comments [facility] US LOWER EXTREMITY VENOUS DUPLEX BILATERAL Routine 04/01/2025 10:55 AM EDT Bilateral leg edema documented in this encounter Results * [facility] US Lower Extremity Venous Duplex Bilateral (04/01/2025 10:55 AM EDT) 04/01/2025 10:5 5 AM EDT Narrative [facility] - 04/01/2025 11:41 AM EDT [address] [address] Ultrasound Report Signed Patient: David Joe MR#: [id number] : 1955 Acct:[id number] Age/Sex: 69 / M ADM Date: 04/01/25 Loc: HO.US Attending Dr: Dayanna Smith MD Ordering Physician: Dayanna Smith MD Date of Service: 04/01/25 Procedure(s): US venous duplex LE BI Accession Number(s): [id number] cc: Dayanna Smith MD EXAMINATION: US TRIPLEX LOWER EXTREMITY, BILATERAL CLINICAL INFORMATION: Bilateral lower extremity edema. Rule out DVT. COMPARISON: None available. TECHNIQUE: Color-flow triplex imaging with spectral analysis and compression Doppler were performed on the bilateral lower extremities. FINDINGS: Respiratory variation, normal compression and augmented flow are noted throughout the bilateral lower extremities. The visualized common femoral vein, superficial femoral vein, profunda femoral vein, popliteal vein and midcalf peroneal and posterior tibial venous segments show no evidence of deep venous thrombosis bilaterally. There is no Khan's cyst. A reactive appearing left groin lymph node is noted incidentally. US/US venous duplex LE BI IMPRESSION: No evidence of deep venous thrombosis involving the bilateral lower extremities. Electronically signed by: Jitendra Martinez MD 04/01/2025 11:38 AM EDT RP Dictated By: Jitendra Martinez MD Signed By: <Electronically signed by Jitendra Martinez MD in OV> 04/01/25 1138 DD/ 1055 TD/TT: 04/01/25 1112 Plaster Patternmaker: Procedure Note Donotuseinterpreter, Image - 04/01/2025 [place] [address] Ultrasound Report Signed Patient: Corey Joe#: [id number] : 5Acct:[id number] Age/Sex: 69 / MADM Date: 04/01/25 Loc: .US Attending Dr: Dayanna Smith MD Ordering Physician: Dayanna Smith MD Date of Service: 04/01/25 Procedure(s): US venous duplex LE BI Accession Number(s): [id number] cc: Dayanna Smith MD EXAMINATION: US TRIPLEX LOWER EXTREMITY, BILATERAL CLINICAL INFORMATION: Bilateral lower extremity edema. Rule out DVT. COMPARISON: None available. TECHNIQUE: Color-flow triplex imaging with spectral analysis and compression Doppler were performed on the bilateral lower extremities. FINDINGS: Respiratory variation, normal compression and augmented flow are noted throughout the bilateral lower extremities. The visualized common femoral vein, superficial femoral vein, profunda femoral vein, popliteal vein and midcalf peroneal and posterior tibial venous segments show no evidence of deep venous thrombosis bilaterally. There is no Khan's cyst. A reactive appearing left groin lymph node is noted incidentally. US/US venous duplex LE BI IMPRESSION: No evidence of deep venous thrombosis involving the bilateral lower extremities. Electronically signed by: Jitendra Martinez MD 04/01/2025 11:38 AM EDT RP Dictated By: Jitendra Martinez MD Signed By: <Electronically signed by Jitendra Martinez MD in OV> 04/01/25 1138 DD/ 1055 TD/TT: 04/01/25 1112 Plaster Patternmaker: Dayanna Simth MD CV VASCULAR PROCEDURES Final Res ult [facility] [address] [place] [address] documented in this encounter Visit Diagnoses Diagnosis Bilateral leg edema- Primary Edema documented in this encounter Additional Health Concerns Assessment Noted Time PHQ-9 Depression Total Score: 4 02/15/20 23 10:15 AM EDT documented as of this encounter Care Teams Map Compiler Relationship Specialty Start Date End Date Dayanna Smith MD [address] [place] [address] PCP - General Family Medicine 07/28/15 06/28/25 Primo Block MD [address] [place] [address] PCP - General Internal Medicine 06/29/25 documented as of this encounter
--- OUTSIDE RECORDS SUMMARY | 2025-07-07 18:19 | XMS_ITS | Encounter Summary ---
Author Organization [employer] Address [address] [facility] 7t [place] [address] Care Team Providers Care Duplicating Machine Operator Name Role Phone Dayanna Smith MD Primary Care Provider [phone] Primo Block MD Primary Care Prov ider Reason for Visit * Reason Comments Med Change Request Encounter Details Date Type Department Care Team ([facility] Contact Info) Description 06/25/2025 Refill C [facility] MED [facility]EDS [address] [place], [place] [phone] Primo Block MD [address] [place], [place] [phone] Mild intermittent asthma without complication Social History Tobacco Use Types Packs/Day Years [...] as of this encounter Visit Diagnoses Diagnosis Mild intermittent asthma without complication documented in this encounter Additional Health Concerns Assessment Noted Time PHQ-9 Depression Total Score: 4 02/15/20 23 10:15 AM EDT documented as of this encounter Care Teams Duplicating Machine Operator Relationship Specialty Start Date End Date Dayanna Smith MD [address] [place] [address] PCP - General Family Medicine 07/28/15 06/28/25 Primo Block MD [address] [place] [phone] PCP - General Internal Medicine 06/29/25 documented as of this encounter
--- OUTSIDE RECORDS SUMMARY | 2025-07-07 18:19 | XMS_ITS | Encounter Summary ---
Author Organization [employer] Address [address] [facility] 7t [place] [address] Care Team Providers Care Cane Splicer Name Role Phone Dayanna Smith MD Primary Care Provider [phone] Primo Block MD Primary Care Prov ider Reason for Visit * Reason Comments Med Refill Encounter Details Date Type Department Care Team ([facility] Contact Info) Description 10/04/2024 Refill [facility] CH[facility] MED & PEDS [address] [place], [place] [phone] Dayanna Smith MD [address] [place], [place] [phone] Social History Tobacco Use Types Packs/Day Years [...] documented as of this encounter Care Teams Cane Splicer Relationship Specialty Start Date End Date Dayanna Smith MD [address] [place] [phone] PCP - General Family Medicine 07/28/15 06/28/25 Primo Block MD [address] [place] [address] PCP - General Internal Medicine 06/29/25 documented as of this encounter
--- OUTSIDE RECORDS SUMMARY | 2025-07-07 18:19 | XMS_ITS | Encounter Summary ---
Author Organization [employer] Address [address] [facility] 7t [place] [address] Care Team Providers Care Senior Applications Analyst Name Role Phone Dayanna Smith MD Primary Care Provider [phone] Primo Block MD Primary Care Prov ider Reason for Visit * Reason Comments Med Refill Encounter Details Date Type Department Care Team ([facility] st Contact Info) Description 04/26/2023 Refill [facility] MED[facility] [address] [place] [address] Dayanna Smith MD [address] [place], [place] [phone] Hypercholesterolemia Social History Tobacco Use Types Packs/Day [...] as of this encounter Care Teams Senior Applications Analyst Relationship Specialty Start Date End Date Dayanna Smith MD [address] [place] [address] PCP - General Family Medicine 07/28/15 06/28/25 Primo Block MD [address] [place] [address] PCP - General Internal Medicine 06/29/25 documented as of this encounter
--- OUTSIDE RECORDS SUMMARY | 2025-07-07 18:19 | XMS_ITS | Encounter Summary ---
Author Organization [employer] Address [address] [facility] 7t [place] [address] Care Team Providers Care Cotton Tier Name Role Phone Primo Block MD Primary Care Prov ider Reason for Visit * Reason Onset Date Comments Cologuard Outreach Unreturned Kit Reminder 07/06 Encounter Details Date Type Department Care Team ([facility] st Contact Info) Description 07/06/2025 Telephone [facility] [address] [place] [address] Primo Block MD [address] [place], [place] [phone] Cologuard Outreach Unreturned Kit Reminder Social History Tobacco Use Types Packs/Day Years [...] AM EDT documented as of this encounter Miscellaneous Notes * Telephone Encounter - Oneida Yin [place] - 07/06/2025 5:55 PM EDT Cologuard Outreach call placed to Patient. Kit delivered and returned but specimen was unable to be processed. Patient agrees to complete kit: Yes Patient Declines: No Order Canceled: No New Order Needed: Yes Please place new order. documented in this encounter Plan of Treatment Not on file documented as of this encounter Visit Diagnoses Not on filedocumented in this encounter Additional Health Concerns Assessment Noted Time PHQ-9 Depression Total Score: 4 02/15/20 23 10:15 AM EDT documented as of this encounter Care Teams Cotton Tier Relationship Specialty Start Date End Date Primo Block MD [address] [place] [address] PCP - General Internal Medicine 06/29/25 documented as of this encounter
--- OUTSIDE RECORDS SUMMARY | 2025-07-07 18:19 | XMS_ITS | Encounter Summary ---
Author Organization [employer] Address [address] [facility] 7t [place] [address] Care Team Providers Care Guitar Maker Name Role Phone Dayanna Smith MD Primary Care Provider [phone] Primo Block MD Primary Care Prov ider Reason for Visit * Reason Comments Med Refill Encounter Details Date Type Department Care Team ([facility] st Contact Info) Description 05/31/2023 Refill [facility] MED & PEDS [address] [place], [place] [phone] Tate Neff MD [address] [place], [place] [phone] Acute pain of right shoulder Social History [...] documented as of this encounter Care Teams Guitar Maker Relationship Specialty Start Date End Date Dayanna Smith MD [address] [place] [phone] PCP - General Family Medicine 07/28/15 06/28/25 Primo Block MD [address] [place] [address] JHOANA Beltre [address] PCP - General Internal Medicine 06/29/25 documented as of this encounter
--- OUTSIDE RECORDS SUMMARY | 2025-07-07 18:19 | XMS_ITS | Clinical Summary ---
Author Organization [facility] Address [address] [place] [phone] Phone Care Team Providers Care Ditch Repairer Name Role Phone Jenna Herrera MD Primary Care Provider [phone] Allergies No known active allergies Surgical History Surgery Date Site/Laterality Comments NECK [...] Last Done Comments Colorectal Cancer Screening: Colonoscopy 1955 Falls Risk Assessment 08/22/2022 Hepatitis C Screening 08/22/2022 Medicare Annual Wellness Visit 08/22/2022 Social Influencers of Health Screening 08/22/2022 Depression Screening 09/24/2024 Hypertension/CHF/CAD Annual BMP Blood Test 02/27/2025 COVID-19 Vaccine ( season) 2025 07/29/2024, 10/07/2021, 12/21/2020 Influenza Vaccine (#1) 2025 , 07/19/2022, 06/23/2019, [...] patient's age to complete this topic Insurance [employer] MEDICARE Care Teams Ditch Repairer Relationship Specialty Start Date End Date Jenna Herrera MD [address] [place] [phone] PCP - General 05/26/15
--- OUTSIDE RECORDS SUMMARY | 2025-07-07 18:19 | XMS_ITS | Encounter Summary ---
Author Organization [employer] Address [address] [facility] 7t [place] [address] Care Team Providers Care Anode Crew Supervisor Name Role Phone Dayanna Smith MD Primary Care Provider [phone] Primo Block MD Primary Care Prov ider Reason for Visit * Reason Comments Med Change Request Encounter Details Date Type Department Care Team (Late st Contact Info) Description 05/31/2023 Refill [facility] [address] [place] [address] [phone] Merline Carrion MD [address] [place], [place] [phone] Social History Tobacco Use Types Packs/Day Years [...] documented as of this encounter Care Teams Anode Crew Supervisor Relationship Specialty Start Date End Date Dayanna Smith MD [address] [place] [address] [phone] PCP - General Family Medicine 07/28/15 06/28/25 Primo Block MD [address] [place] [address] PCP - General Internal Medicine 06/29/25 documented as of this encounter
--- OUTSIDE RECORDS SUMMARY | 2025-07-07 18:19 | XMS_ITS | Encounter Summary ---
Author Organization [employer] Address [address] [facility] [address] 7t [place] [address] Care Team Providers Care Boating Safety Officer Name Role Phone Primo Block MD Primary Care Prov ider Encounter Details Date Type Department Care Team (Latest Contact Info) Description 07/07/2025 Travel Social History Tobacco Use Types Packs/Day [...] EDT Gender Identity Choose not to disclose 2 10:14 AM EDT Sexual Orientation Choose not to disclose 2021 10:14 AM EDT documented as of this encounter Plan of Treatment Not on file documented as of this encounter Visit Diagnoses Not on filedocumented in this encounter Additional Health Concerns Assessment Noted Time PHQ-9 Depression Total Score: 4 02/15/20 23 10:15 AM EDT documented as of this encounter Care Teams Boating Safety Officer Relationship Specialty Start Date End Date Primo Block MD [address] [place] [address] PCP - General Internal Medicine 06/29/25 documented as of this encounter
--- OUTSIDE RECORDS SUMMARY | 2025-07-07 18:19 | XMS_ITS | Encounter Summary ---
Author Organization [employer] Address 75 [facility] 7t [place] [address] Care Team Providers Care Rrt Name Role Phone Dayanna Smith MD Primary Care Provider Primo Block MD Primary Care Prov ider Encounter Details Date Type Department Care Team (Late st Contact Info) Description 02/26/2023 Orders Only [facility] MED[facility] [address] [place], [place] [phone] Yee Abarca LPN Social History Tobacco Use [...] documented as of this encounter Care Teams Rrt Relationship Specialty Start Date End Date Dayanna Smith MD [address] [place] [address] PCP - General Family Medicine 07/28/15 06/28/25 Primo Block MD [address] [place] [address] PCP - General Internal Medicine 06/29/25 documented as of this encounter
--- OUTSIDE RECORDS SUMMARY | 2025-07-07 18:19 | XMS_ITS | Encounter Summary ---
Author Organization [employer] Address [address] [facility] 7t [place] [address] Care Team Providers Care Monogram And Letter Paster Name Role Phone Dayanna Smith MD Primary Care Provider [phone] Primo Block MD Primary Care Prov ider Encounter Details Date Type Department Care Team (Late st Contact Info) Description 03/06/2023 Orders Only [facility] [address] [place] [address] Rylie Weathers LPN Social History Tobacco Use [...] documented as of this encounter Care Teams Monogram And Letter Paster Relationship Specialty Start Date End Date Dayanna Smith MD [address] [place] [address] PCP - General Family Medicine 07/28/15 06/28/25 Primo Block MD [address] [place] [address] PCP - General Internal Medicine 06/29/25 documented as of this encounter
--- OUTSIDE RECORDS SUMMARY | 2025-07-07 18:19 | XMS_ITS | Encounter Summary ---
Author Organization [employer] Address [address] [facility] 7t [place] [address] Care Team Providers Care Metal Numerical Tool Programmer Name Role Phone Dayanna Smith MD Primary Care Provider Primo Block MD Primary Care Prov ider Reason for Visit * Reason Comments Med Refill Encounter Details Date Type Department Care Team ([facility] st Contact Info) Description 04/26/2023 Refill [facility] & PEDS [address] [place], [place] [phone] Dayanna Smith MD [address] [place] [address] Social History Tobacco Use Types Packs/Day Years [...] documented as of this encounter Care Teams Metal Numerical Tool Programmer Relationship Specialty Start Date End Date Dayanna Smith MD [address] [place] [phone] PCP - General Family Medicine 07/28/15 06/28/25 Primo Block MD [address] [place] [address] PCP - General Internal Medicine 06/29/25 documented as of this encounter
== END 2025-07-07 15:36 | disposition home or self-care (01) ==
LOC: HO.US 15:35
PROVIDERS: PCP Student in an Organized Health Care Education/Training Program; Visit Provider Internal Medicine
DX: M79.661 Pain in right lower leg (principal)
CPT/HCPCS: 93971

== ENCOUNTER → 2025-07-07 16:42 | Outpatient (BNV) | payer OTHER, MEDICAID, SELFPAY | PROVIDERS: PCP Student in an Organized Health Care Education/Training Program; Visit Provider Radiology Diagnostic Radiology | DX: M79.661 Pain in right lower leg (principal) | CPT/HCPCS: 93971 ==

== ENCOUNTER 2025-07-13 10:36 | Outpatient (AMB) | payer OTHER, MEDICAID, SELFPAY ==
[2025-07-13 10:44] VITALS: BP 110/80; PULSE 79; O2SAT 96; BMI 33.2
--- NOTE | 2025-07-13 10:44 | HO.NEPHOV_ITS ---
Vital Signs 07/13/25 10:44 Height 5 ft 7 in Weight 212 lb BMI 33.2 BP 110/80 Blood Pressure Location Lt brachial Position Sitting Pulse 79 Pulse Source Pulse Oximeter Pulse Oximetry (%) 96 Oxygen Delivery Method Room Air Intake Visit Reasons: 6 MO FU-Conf Guidance Counselor Required: Yes Guidance Counselor Name: [place] [id number] Accompanied by: Self / Same As Patient Allergies No Known Allergies Allergy (Verified 07/13/25 10:47) Medication List - Last Reconciled 07/13/25 by Jamie Limon MD albuterol sulfate 90 mcg/actuation 2 puffs inhalation QID PRN carbamide peroxide 6.5% (Ear Drops (carbamide peroxide)) 5 - 10 drps otic (ears) BID clotrimazole 1% appl topical BID gabapentin 300 mg PO BID losartan 50 mg PO QAM meclizine 25 mg PO DAILY PRN meloxicam 7.5 mg PO BID simvastatin 20 mg PO BEDTIME trazodone 100 mg PO DAILY PRN HPI Comments Details: . Middle aged man with a history of hypertension referred for evaluation of chronic kidney disease and hypertension. He has been on hydrochlorothiazide 25 mg and losartan 100 mg daily. recent creatinine was 1.3 mg/dL with the EGFR of about 54 mL/minute and hence this evaluation. He has chronic low back pain. He takes ibuprofen and meloxicam periodically. He is also on Gabapentin. Today he has no headache nausea or vomiting. No shortness of breath. No urinary symptoms no fever no rash. No history of smoking. 07/04/2024. Overall he is doing well. He has stopped taking meloxicam. 09/15/24; After lowering Losartan, BP is better ;No new issues 01/15/25: Interpretor was used. Doing well No N/v or edema 07/13/25 - The patient is a 69-year-old male presenting with low back pain and kidney function monitoring. - Low back pain managed with gabapentin. - Improved kidney function noted. [facility] Medical History Asthma Full dentures Elevated cholesterol Neck pain HTN (hypertension) DJD of right shoulder Complete rotator cuff tear or rupture of right shoulder, not specified as traumatic Lymph node enlargement Arthropathy of cervical facet joint Chronic pain syndrome Other specified mononeuropathies Degeneration, intervertebral disc, cervical Postlaminectomy syndrome, cervical Surgical History Hx of appendectomy Hx of cervical discectomy Social History Household Members: None Housing: Apartment Are you a primary child care attendant school to a significant other at home: No Do you presently have visiting nurse or other home services: No 75 years or older and lives alone: No Patient Tobacco Use Status: Never used Tobacco Current occupational status: disabled Current occupation: right hand Physical Exam Vital Signs: Last Vital Signs Pulse 79 07/13/25 10:44 BP 110/80 07/13/25 10:44 Pulse Ox 96 07/13/25 10:44 Oxygen Delivery Method Room Air 07/13/25 10:44 BMI result Body Mass Index 33.2 Const General: comfortable Nutritional Appearance: well nourished Orientation/consciousness: patient oriented x3 HEENT Head: No normal to inspection Mouth: moist mucous membranes Neck Neck: Yes supple and Yes no JVD Resp Auscultation: clear to auscultation bilaterally and no rales Cardio Jugular venous distension: no JVD Palpation: no palpable S3 and no palpable S4 Heart sounds: no rubs GI Palpation (GI): Soft to palpation and nontender Percussion: No Fluid wave present General: Yes no CVA tenderness Back/Spine/Pelvis Back: no CVA tenderness Skin General skin exam: no rashes or lesions noted Neuro General: patient oriented x3 Extrem General: Yes no pedal edema and No clubbing Results Reviewed Nephrology Results: Hgb, (14.0-18.0) 13.6 g/dl L 01/15/25 WBC, (4.8-10.8) 5.9 X10*3/uL 01/15/25 Plt Count, (160-400) 229 X10*3/uL 01/15/25 Sodium, (135-145) 137 mmol/L 03/06/25 Potassium, (3.3-5.1) 3.4 mmol/L 03/06/25 Chloride, (96-108) 101 mmol/L 03/06/25 Carbon Dioxide, (22-29) 29 mmol/L 03/06/25 BUN, (9-16) 20 mg/dL H 03/06/25 Creatinine, (0.5-1.4) 1.39 mg/dL 03/06/25 Calcium, (8.4-10.2) 9.7 mg/dL 03/06/25 Urine Protein, (Neg-Trace) Trace mg/dL 01/15/25 Urine Creatinine 235.50 mg/dL 01/15/25 Assessment & Plan Assessment & Plan (1) HTN (hypertension): Code(s): I10 - Essential (primary) hypertension Category: Medical (2) CKD (chronic kidney disease): Code(s): N18.9 - Chronic kidney disease, unspecified Category: Medical Plan has chronic kidney disease setting of longstanding hypertension. I think there is a component of hypoperfusion from low blood pressure. Use of NSAIDs could also contribute to hypoperfusion Other possibilities including obstructive uropathy ,Glomerular nephritis or interstitial disease seem unlikely at this point Recommendations Continue to avoid ibuprofen and meloxicam. After lowering Losartan, BP is acceptable. Renal sonogram for CKD Orders: Orders Basic Metabolic Panel 3 Months N18.9 - Chronic kidney disease, unspecified US renal BI Today N18.9 - Chronic kidney disease, unspecified Basic Metabolic Panel 6 Months N18.9 - Chronic kidney disease, unspecified Coding Level of Care Code Est Pt Level 4 (21440) Diagnoses HTN (hypertension) I10 CKD (chronic kidney disease) N18.9
--- OUTSIDE RECORDS SUMMARY | 2025-07-13 12:40 | XMS_ITS | Clinical Summary ---
Author Organization [employer] Address [address] [facility] 7t [place] [address] Care Team Providers Care Radiologist Chief Of Breast Imaging Name Role Phone Primo Block MD Primary [...] use of Q-tips or other ear device hand chain maker. Use Debrox eardrops 4 times per day [...] Center 11/28/2023 11:00 AM Dayanna Smith MD [facility] I have also referred him to gastroenterology [...] for orthopedic done by his PCP to [facility] affirmative action specialist to check status of referral -advised [...] called his son -David Joe to # [phone] -was not able to reach but left [...] Encounters Date Type Department Care Team Description 07/13/2025 Refill [facility] [address] [place] [address] Dayanna Smith MD 07/09/2025 Results Follow-Up [facility] [address] [place] [address] Shanelle Coello MD US VENOUS DUPLEX LE RT 07/07/2025 10:00 AM EDT Office Visit [facility] [address] [place] [address] Shanelle Coello MD Right calf pain (Primary Dx) 07/07/2025 Orders Only [facility] [address] [place] [address] Shanelle Coello MD 07/07/2025 Travel 07/06/2025 Telephone [facility] [address] [place] [address] Primo Block MD Cologuard Outreach Unreturned Kit Reminder 06/25/2025 1:45 PM EDT Telemedicine [facility] [address] [place] [address] Primo Block MD Essential hypertension (Primary Dx); Pain; Mild intermittent asthma without complication; Lower extremity edema 06/25/2025 Refill [facility] [address] [place] [address] Primo Block MD Mild intermittent asthma without complication 06/25/2025 Travel 06/23/2025 1:40 PM EDT Office Visit [facility] [address] [place] [address] Mario Ho MD Tinea cruris (Primary Dx); Impacted cerumen of left ear 06/23/2025 Travel 06/23/2025 Telephone [facility] [address] [place] [address] Dayanna Smith MD Walk-In 06/23/2025 Telephone [facility] [address] [place] [address] Dayanna Smith MD Med Refill 06/23/2025 Refill [facility] [address] [place] [address] Dayanna Smith MD Pain 05/31/2025 Refill [facility] [address] [place] [address] Dayanna Smith MD 05/24/2025 Refill [facility] [address] [place] [address] Dayanna Smith MD Depression, unspecified depression type 05/07/2025 Telephone [facility] [address] [place] [address] Dayanna Smith MD No Show 04/28/2025 1:00 PM EDT Clinical Support [facility] [address] [place] [address] Susan He RN Bilateral impacted cerumen [H61.23] 04/28/2025 Travel 04/20/2025 2:20 PM EDT Office Visit [facility] [address] [place] [address] Marlena Galicia MD Bilateral impacted cerumen (Primary Dx) 04/20/2025 Travel 04/17/2025 3:15 PM EDT Office Visit [facility] [address] [place] [address] Dayanna Smith MD Essential hypertension (Primary Dx); Bilateral leg edema 04/17/2025 Travel 04/14/2025 Refill [facility] [address] [place] [address] Tania Sun FNP 04/14/2025 Telephone [facility] [address] [place] [address] Tate Neff MD No Show from Last 3 Months Immunizations Immunization Administration [...] 1973 Depression Screening 02/15/2024 02/14/2023, 02/15/20 23 COVID-19 Vaccine ( season) 2025 07/29/2024, 07/29/2024, [...] PM EDT Narrative 07/07/2025 5:07 PM EDT [place] [address] Ultrasound Report Signed Patient: David Joe MR#: [id number] : 1955 Acct:[id number] Age/Sex: 69 / M ADM Date: 07/07/25 Loc: .US Attending Dr: Shanelle Coello MD Ordering Physician: Shanelle Coello MD Date of Service: 07/07/25 Procedure(s): US venous duplex LE RT Accession Number(s): [id number] cc: Dayanna Smith MD; Shanelle Coello MD [...] 07/07/25 170 DD/ 164 TD/TT: 07/07/25 1650 Building Construction Ironworker: Procedure Note Donotuseinterpreter, Image - 07/07/[address] [address] Ultrasound Report Signed Patient: Corey Joe#: [id number] : 5Acct:[id number] Age/Sex: 69 / MADM Date: 07/07/25 Loc: HO.US Attending Dr: Shanelle Coello MD Ordering Physician: Shanelle Coello MD Date of Service: 07/07/25 Procedure(s): US venous duplex LE RT Accession Number(s): [id number] cc: Dayanna Smith MD; Shanelle Coello MD [...] 07/07/25 1704 DD/ 1642 TD/TT: 07/07/25 1650 Building Construction Ironworker: us Shanelle Coello MD IMG US PROCEDURES Final Resul t * (ABNORMAL) Lipid Panel, Standard (04/15/2024 10:08 AM EDT) Triglycerides 103 <150 mg/dL [facility] Comment:Desirable Triglyceri de: less than 150 mg/dLBorderline High Triglyceride 150-199 mg/dLHigh Triglyceride: 200-499 mg/dLVery High Triglyceride: greater than or equal to 5OO mg/dL Cholesterol 190 <200 mg/dL [facility] Comment:Desirable Cholestero l: less than 200 mg/dLBorderline High Cholesterol: 200-239 mg/dLHigh Cholesterol: greater than 239 mg/dL LDL Cholesterol Calculated 102(H) <100 mg/dL [facility] Comment:Desirable LDL: less than 100 mg/dLNear Optimal/Above Optimal LDL: 110- 129 mg/dLBorderline High LDL: 130-159 mg/dLHigh LDL: 160-189 mg/dLVery High LDL: greater than or equal to 190 mg/dL HDL Cholesterol 68 >40 mg/dL [facility] Comment:Desirable HDL: great er than 40 mg/dL Note: This HDL assay may give artificially low results in patients with liver disease. Blood Venous blood specimen / Unknown 04/15/2024 10:08 AM EDT 04/15/2024 1:58 PM EDT us Dayanna Smith MD LAB BLOOD ORDERABLES Final Resul t [facility] [address] [place] [phone] from Last 3 Months or Most Recently Relevant to Health Maintenance Insurance [facility] DUAL COMPLETE [place] Care Teams Radiologist Chief Of Breast Imaging Relationship Specialty Start Date End Date Primo Block MD [address] [place] [address] PCP - General Internal Medicine 06/29/25
--- OUTSIDE RECORDS SUMMARY | 2025-07-13 12:40 | XMS_ITS | Encounter Summary ---
Author Organization [employer] Address 75 [facility] 7t [place] [address] Care Team Providers Care Associate Media Director Name Role Phone Dayanna Smith MD Primary Care Provider [phone] Primo Block MD Primary Care Prov ider Reason for Visit * Reason Comments Med Change Request Encounter Details Date Type Department Care Team ([facility] Contact Info) Description 06/25/2025 Refill [facility]EDS [address] [place], [place] [phone] Primo Block MD [address] [place], [place] [phone] Mild intermittent asthma without complication Social History [...] documented as of this encounter Care Teams Associate Media Director Relationship Specialty Start Date End Date Dayanna Smith MD [address] [place] [address] PCP - General Family Medicine 07/28/15 06/28/25 Primo Block MD [address] [place] [address] PCP - General Internal Medicine 06/29/25 documented as of this encounter
--- OUTSIDE RECORDS SUMMARY | 2025-07-13 12:40 | XMS_ITS | Clinical Summary ---
Author Organization [facility] Address [address] [place] [address] Care Team Providers Care Processor Solid Propellant Name Role Phone Dayanna Smith MD Primary Care Provider [phone] Medications albuterol HFA (PROVENTIL HFA;VENTOLIN HFA) 108 [...] patient's age to complete this topic Insurance [facility] Medicare [facility] Medicare Care Teams Processor Solid Propellant Relationship Specialty Start Date End Date Dayanna Smith MD [address] [place] [address] PCP - General Family Medicine 05/08/22
--- OUTSIDE RECORDS SUMMARY | 2025-07-13 12:40 | XMS_ITS | Encounter Summary ---
Author Organization [employer] Address 75 [facility] 7t [place] [address] Care Team Providers Care Glass Melt Operator Name Role Phone Dayanna Smith MD Primary Care Provider Primo Block MD Primary Care Prov ider Reason for Visit * Reason Comments Med Change Request Encounter Details Date Type Department Care Team (Late st Contact Info) Description 05/31/2023 Refill [facility] [address] [place] [address] [phone] Merline Carrion MD [address] [place], [place] [phone] Social History Tobacco Use Types Packs/Day Years [...] documented as of this encounter Care Teams Glass Melt Operator Relationship Specialty Start Date End Date Daaynna Smith MD [address] [place] [address] [phone] PCP - General Family Medicine 07/28/15 06/28/25 Primo Block MD [address] [place] [address] PCP - General Internal Medicine 06/29/25 documented as of this encounter
--- OUTSIDE RECORDS SUMMARY | 2025-07-13 12:41 | XMS_ITS | Encounter Summary ---
Author Organization [employer] Address 75 [facility] 7t [place] [address] Care Team Providers Care Biomedical Engineering Director Name Role Phone Dayanna Smith MD Primary Care Provider [phone] Primo Block MD Primary Care Prov ider Reason for Referral * Imaging (Routine) - Closed Specialty Diagnoses / Procedures Referred By Ranjit orantes Referred To Contact Cardiology Diagnoses Bilateral leg edema Procedures VASC US Lower Extremity Venous Duplex Bilateral Dayanna Smith MD [address] [place] [address] Phone: tel: fax: [address] Phone: tel: fax: Referral ID Status Reason Start Date Expiration Date V isits Requested Visits Authorized [id number] Closed Perform Procedure 04/01/2025 04/01/2026 1 1 Encounter Details Date Type Department Care Team (Late st Contact Info) Description 04/01/2025 Orders Only [facility] [address] [place], [place] [phone] Dayanna Smith MD [address] [place], [place] [phone] Bilateral leg edema (Primary Dx) Social History [...] Procedure Name Priority Date/Time Associated Diagnosis Comments [facility] US LOWER EXTREMITY VENOUS DUPLEX BILATERAL Routine 04/01/2025 10:55 AM EDT Bilateral leg edema documented in this encounter Results * [facility] US Lower Extremity Venous Duplex Bilateral (04/01/2025 10:55 AM EDT) 04/01/2025 10:5 5 AM EDT Narrative [facility] - 04/01/2025 11:41 AM EDT [address] [address] Ultrasound Report Signed Patient: David Joe MR#: [id number] : 1955 Acct:[id number] Age/Sex: 69 / M ADM Date: 04/01/25 Loc: HO.US Attending Dr: Dayanna Smith MD Ordering Physician: Dayanna Smith MD Date of Service: 04/01/25 Procedure(s): US venous duplex LE BI Accession Number(s): [id number] cc: Dayanna Smith MD EXAMINATION: US TRIPLEX [...] 04/01/25 1138 DD/ 1055 TD/TT: 04/01/25 1112 Intelligence Engineer: Procedure Note Donotuseinterpreter, Image - 04/01/2025 [place] [address] Ultrasound Report Signed Patient: Corey Joe#: [id number] : 5Acct:[id number] Age/Sex: 69 / MADM Date: 04/01/25 Loc: .US Attending Dr: Dayanna Smith MD Ordering Physician: Dayanna Smith MD Date of Service: 04/01/25 Procedure(s): US venous duplex LE BI Accession Number(s): [id number] cc: Dayanna Smith MD EXAMINATION: US TRIPLEX [...] 04/01/25 1138 DD/ 1055 TD/TT: 04/01/25 1112 Intelligence Engineer: Dayanna Smith MD CV VASCULAR PROCEDURES Final Res ult [facility] [address] [place] [address] documented in this encounter Visit Diagnoses Diagnosis Bilateral leg edema- Primary Edema documented in this encounter Additional Health Concerns Assessment Noted Time PHQ-9 Depression Total Score: 4 02/15/20 23 10:15 AM EDT documented as of this encounter Care Teams Biomedical Engineering Director Relationship Specialty Start Date End Date Dayanna Smith MD [address] [place] [address] PCP - General Family Medicine 07/28/15 06/28/25 Primo Block MD [address] [place] [address] PCP - General Internal Medicine 06/29/25 documented as of this encounter
--- OUTSIDE RECORDS SUMMARY | 2025-07-13 12:41 | XMS_ITS | Encounter Summary ---
Author Organization [employer] Address 75 [facility] 7t [place] [address] Care Team Providers Care Lithographic Press Operator Name Role Phone Dayanna Smith MD Primary Care Provider [phone] Primo Block MD Primary Care Prov ider Reason for Visit * Reason Comments Med Refill Encounter Details Date Type Department Care Team ([facility] st Contact Info) Description 05/31/2023 Refill [facility] [address] [place], [place] [phone] Tate Neff MD [address] [place], [place] [phone] Acute pain of right shoulder Social History [...] documented as of this encounter Care Teams Lithographic Press Operator Relationship Specialty Start Date End Date Dayanna Smith MD [address] [place] [address] PCP - General Family Medicine 07/28/15 06/28/25 Primo Block MD [address] [place] [address] JHOANA Beltre [address] PCP - General Internal Medicine 06/29/25 documented as of this encounter
--- OUTSIDE RECORDS SUMMARY | 2025-07-13 12:42 | XMS_ITS | Encounter Summary ---
Author Organization [employer] Address 75 [facility] 7t [place] [address] Care Team Providers Care Manager Party Name Role Phone Dayanna Smith MD Primary Care Provider [phone] Primo Block MD Primary Care Prov ider Encounter Details Date Type Department Care Team (Late st Contact Info) Description 02/26/2023 Orders Only [facility] MEDICINE [address] [place], [place] [phone] Yee Abarca LPN Social History Tobacco Use [...] documented as of this encounter Care Teams Manager Party Relationship Specialty Start Date End Date Dayanna Smith MD [address] [place] [address] PCP - General Family Medicine 07/28/15 06/28/25 Primo Block MD [address] [place] [phone] PCP - General Internal Medicine 06/29/25 documented as of this encounter
--- OUTSIDE RECORDS SUMMARY | 2025-07-13 12:42 | XMS_ITS | Encounter Summary ---
Author Organization [employer] Address 75 [facility] 7t [place] [address] Care Team Providers Care Legal Project Manager Name Role Phone Dayanna Smith MD Primary Care Provider [phone] Primo Block MD Primary Care Prov ider Reason for Visit * Reason Comments Med Refill Encounter Details Date Type Department Care Team ([facility] st Contact Info) Description 04/26/2023 Refill [facility] MED & PEDS [address] [place], [place] [phone] Dayanna Smith MD [address] [place] [address] Social History Tobacco Use Types Packs/Day Years [...] documented as of this encounter Care Teams Legal Project Manager Relationship Specialty Start Date End Date Dayanna Smith MD [address] [place] [address] PCP - General Family Medicine 07/28/15 06/28/25 Primo Block MD [address] [place] [address] PCP - General Internal Medicine 06/29/25 documented as of this encounter
--- OUTSIDE RECORDS SUMMARY | 2025-07-13 12:42 | XMS_ITS | Encounter Summary ---
Author Organization [employer] Address [address] [facility] [address] 7t [place] [address] Care Team Providers Care Cableway Operator Name Role Phone Primo Block MD Primary Care Prov ider Reason for Visit * Reason Comments Med Refill Encounter Details Date Type Department Care Team ([facility] st Contact Info) Description 07/13/2025 Refill [facility] [address] [place] [address] Dayanna Smith MD [address] [place] [address] Social History Tobacco Use Types Packs/Day Years [...] documented as of this encounter Care Teams Cableway Operator Relationship Specialty Start Date End Date Primo Block MD [address] [place] [phone] PCP - General Internal Medicine 06/29/25 documented as of this encounter
--- OUTSIDE RECORDS SUMMARY | 2025-07-13 12:42 | XMS_ITS | Encounter Summary ---
Author Organization [employer] Address 75 [facility] 7t [place] [address] Care Team Providers Care Division Human Resources Manager Name Role Phone Dayanna Smith MD Primary Care Provider Primo Block MD Primary Care Prov ider Encounter Details Date Type Department Care Team (Late st Contact Info) Description 03/06/2023 Orders Only [facility] CHC MED & PEDS [address] [place] [address] Rylie Weathers LPN Social History Tobacco Use [...] documented as of this encounter Care Teams Division Human Resources Manager Relationship Specialty Start Date End Date Dayanna Smith MD [address] [place] [address] PCP - General Family Medicine 07/28/15 06/28/25 Primo Block MD [address] [place] [address] PCP - General Internal Medicine 06/29/25 documented as of this encounter
--- OUTSIDE RECORDS SUMMARY | 2025-07-13 12:42 | XMS_ITS | Encounter Summary ---
Author Organization [employer] Address 75 [facility] 7t [place] [address] Care Team Providers Care Clearing Inspector Name Role Phone Dayanna Smith MD Primary Care Provider [phone] Primo Block MD Primary Care Prov ider Reason for Visit * Reason Comments Med Refill Encounter Details Date Type Department Care Team ([facility] st Contact Info) Description 04/26/2023 Refill [facility] MEDICINE [address] [place] [address] Dayanna Smith MD [address] [place], [place] [phone] Hypercholesterolemia Social History Tobacco Use Types Packs/Day [...] documented as of this encounter Care Teams Clearing Inspector Relationship Specialty Start Date End Date Dayanna Smith MD [address] [place] [phone] PCP - General Family Medicine 07/28/15 06/28/25 Primo Block MD [address] [place] [address] PCP - General Internal Medicine 06/29/25 documented as of this encounter
--- OUTSIDE RECORDS SUMMARY | 2025-07-13 12:42 | XMS_ITS | Encounter Summary ---
Author Organization [employer] Address 75 [facility] 7t [place] [address] Care Team Providers Care Last Pattern Grader Name Role Phone Primo Block MD Primary Care Prov ider Reason for Visit * Reason Onset Date Comments Results 07/09/2025 Encounter Details Date Type Department Care Team ([facility] Contact Info) Description 07/09/2025 Results Follow-Up [facility] CHC MED & PEDS [address] [place], [place] [phone] Shanelle Coello MD 505 [place] [address] US VENOUS DUPLEX LE RT Social History Tobacco Use Types Packs/Day Years [...] encounter Miscellaneous Notes * Telephone Encounter - Irina Enriquez RN - 07/10/2025 9:22 AM EDT TC placed to patient [phone] using [employer] #ID [id number] regarding below message. RN informed patient of his ultrasound results that show no blood clot present and if symptoms persist please return to the Walk in Center or see PCP for further evaluation. PT verbalized understanding. PT to F/U PRN. ----- Message from Shanelle Coello MD sent at 07/09/2025 10:51 PM EDT ----- Please inform his leg ultrasound did not demonstrate a blood clot. He can return to the [facility] for further evaluation if desired or see his PCP. ----- Message ----- From: Interface, Ris Results In Sent: 07/07/2025 5:07 PM EDT To: Shanelle Coello MD documented in this encounter Plan of Treatment Not on file documented as of this encounter Visit Diagnoses Not on filedocumented in this encounter Additional Health Concerns Assessment Noted Time PHQ-9 Depression Total Score: 4 02/15/20 23 10:15 AM EDT documented as of this encounter Care Teams Last Pattern Grader Relationship Specialty Start Date End Date Primo Block MD [address] [place] [address] PCP - General Internal Medicine 06/29/25 documented as of this encounter
--- OUTSIDE RECORDS SUMMARY | 2025-07-13 12:43 | XMS_ITS | Encounter Summary ---
Author Organization [employer] Address 75 [facility] 7t [place] [address] Care Team Providers Care Job Molder Name Role Phone Dayanna Smith MD Primary Care Provider [phone] Primo Block MD Primary Care Prov ider Reason for Visit * Reason Comments Med Refill Encounter Details Date Type Department Care Team ([facility] st Contact Info) Description 10/04/2024 Refill [facility] CHC MED & PEDS [address] [place], [place] [phone] Dayanna Smith MD [address] [place], [place] [phone] Social History Tobacco Use Types Packs/Day Years [...] documented as of this encounter Care Teams Job Molder Relationship Specialty Start Date End Date Dayanna Smith MD [address] [place] [phone] PCP - General Family Medicine 07/28/15 06/28/25 Primo Block MD [address] [place] [phone] PCP - General Internal Medicine 06/29/25 documented as of this encounter
--- OUTSIDE RECORDS SUMMARY | 2025-07-13 12:43 | XMS_ITS | Clinical Summary ---
Author Organization [facility] Address [address] [place] [phone] Phone Care Team Providers Care Rvda Master Certified Rv Technician Name Role Phone Jenna Herrera MD Primary Care Provider [phone] Allergies No known active allergies Surgical History [...] topic Insurance [employer] MEDICARE Care Teams Rvda Master Certified Rv Technician Relationship Specialty Start Date End Date Jenna Herrera MD [address] [place] [phone] PCP - General 05/26/15
== END 2025-07-13 11:00 | disposition home or self-care (01) ==
LOC: HO.HKA 10:36
PROVIDERS: PCP Student in an Organized Health Care Education/Training Program; Visit Provider Internal Medicine Hypertension Specialist
DX: I12.9 Hypertensive chronic kidney disease with stage 1 through stage 4 chronic kidney disease, or unspecified chronic kidney disease (principal); N18.9 Chronic kidney disease, unspecified
CPT/HCPCS: 99214

== ENCOUNTER → 2025-07-13 10:36 | Outpatient (BNVA) | payer OTHER, SELFPAY | PROVIDERS: PCP Student in an Organized Health Care Education/Training Program; Visit Provider Internal Medicine Hypertension Specialist | DX: I12.9 Hypertensive chronic kidney disease with stage 1 through stage 4 chronic kidney disease, or unspecified chronic kidney disease (principal); N18.9 Chronic kidney disease, unspecified | CPT/HCPCS: 99212 ==

== ENCOUNTER 2025-08-12 11:37 | Outpatient (REF) | payer OTHER, SELFPAY ==
--- OUTSIDE RECORDS SUMMARY | 2025-08-12 10:40 | XMS_ITS | Encounter Summary ---
Author Organization [employer] Address 75 [facility] 7t [place] [address] Care Team Providers Care Emergency Vehicle Dispatcher Name Role Phone Primo Block MD Primary Care Prov ider Reason for Referral * Consultation (Routine) - Closed Specialty Diagnoses / Procedures Referred By Ranjit orantes Referred To Contact Podiatry Diagnoses Numbness of toes Merline Cruz MD [address] [place] [phone] Phone: tel: fax: Hitesh Faulkner DPM [address] [address] Phone: tel: fax: Referral ID Status Reason Start Date Expiration Date V isits Requested Visits Authorized [id number] Closed Specialty Services Required 08/12/2025 08/12/2026 1 1 Encounter Details Date Type Department Care Team (Late st Contact Info) Description 08/12/2025 10:40 AM EST Office Visit [facility] [address] [place] [address] [phone] Merline Cruz MD [address] [place], [place] [phone] Numbness of toes (Primary Dx) Social History Tobacco Use Types [...] Sign Reading Time Taken Comments Blood Pressure 133/89 08/12/2025 10:38 AM EST Pulse 79 08/12/2025 10:38 AM EST Temperature 35.3 C (95.5 F) 08/12/2025 10:38 AM EST Respiratory Rate 16 08/12/2025 10:3 8 AM EST Oxygen Saturation - - Inhaled Oxygen Concentration - - Weight 95.2 kg (209 lb 12.8 oz) 025 10:38 AM EST Height 175.3 cm (5' 9 ) 08/12/2025 10:3 8 AM EST Body Mass Index 30.98 08/12/2025 10:38 AM EST documented in this encounter Progress Notes * Merline Muller MD - 08/12/2025 10:40 AM EST SUBJECTIVE: David Joe is a 69 y.o. year old adult who presents for acute visit . David Joe, age 69 years Numbness in Foot - Reports numbness in the foot, especially when lying down or sleeping - Symptom present for approximately one month prior to visit - Denies pain in the foot - Describes sensation as lack of circulation in the area Social History Social History Narrative Not on file Problem List[1] Depressive disorder Essential hypertension Mild intermittent asthma Pure hypercholesterolemia Chronic back pain Right arm pain Memory loss Dysphagia Gastroesophageal reflux disease without esophagitis Impacted cerumen of left ear Tinea cruris Lower extremity edema Numbness of toes Family History[2] Review of Systems Constitutional: Negative. HENT: Negative. Respiratory: Negative. Cardiovascular: Negative. Musculoskeletal: Negative. Neurological: Positive for numbness. OBJECTIVE: Vitals: 08/12/25 1038 BP: 133/89 BP Location: Right arm Patient Position: Sitting BP Cuff Size: Large adult Pulse: 79 Resp: 16 Temp: 95.5 ??F (35.3 ??C) TempSrc: Temporal Weight: 209 lb 12.8 oz (95.2 kg) Height: 5' 9 (1.753 m) Physical Exam Cardiovascular: Rate and Rhythm: Normal rate and regular rhythm. Pulmonary: Effort: Pulmonary effort is normal. Breath sounds: Normal breath sounds. Abdominal: General: Abdomen is flat. Palpations: Abdomen is soft. Musculoskeletal: Right lower leg: No edema. Left lower leg: No edema. Feet: Right foot: Skin integrity: Skin integrity normal. Toenail Condition: Right toenails are abnormally thick. Fungal disease present. Left foot: Skin integrity: Skin integrity normal. Toenail Condition: Left toenails are abnormally thick. Fungal disease present. Comments: Good capillary refill on all toes Good pedal pulses Neurological: Mental Status: is alert. Follow Up: No follow-ups on file. Medications Ordered Prior to Encounter[3] Problem List Items Addressed This Visit Numbness of toes - Primary Relevant Orders CBC auto differential Comprehensive Metabolic Panel Hemoglobin A1c TSH with Reflex to Free T4 RPR (Monitor) with Reflex to Titer Vitamin B12 (Cobalamin) and Folate Panel, Serum Methylmalonic Acid Homocysteine Referral to Podiatry Numbness of toes: - Neuropathy suspected as etiology for numbness in toes. - Ordered laboratory tests to evaluate blood glucose, thyroid function, syphilis serology, and vitamin levels. Referred to podiatry for further evaluation. Will notify with lab results when available. This note was drafted using Ambient (AI) technology. The patient/patient's guardian has been informed and has consented to the use of this technology: Yes [1] Patient Active Problem List Diagnosis Depressive disorder Essential hypertension Mild intermittent asthma Pure hypercholesterolemia Chronic back pain Right arm pain Memory loss Dysphagia Gastroesophageal reflux disease without esophagitis Impacted cerumen of left ear Tinea cruris Lower extremity edema Numbness of toes [2] No family history on file. [3] Current Outpatient Medications on File Prior to Visit Medication Sig Dispense Refill Acetaminophen 500 MG capsule Take one to two tablets as needed for fever or pain every 6 hours 30 capsule 0 albuterol 108 (90 Base) MCG/ACT inhaler INHALE 2 PUFFS INTO LUNGS FOUR TIMES A DAY NEEDED 18 g 11 Blood Pressure kit 1 kit in the morning. 1 kit 0 Diclofenac Sodium 1 % gel APPLY TOPICALLY IF NEEDED EACH DAY FOR RIGHT ARM PAIN BELOW SHOULDER 100 g 0 famotidine (Pepcid) 40 MG/5ML suspension Take 5 mL (40 mg) by mouth at bedtime. 150 mL 2 fluticasone-salmeterol (Advair) 230-21 MCG/ACT inhaler Inhale 2 puffs in the morning and at bedtime. Rinse mouth with water after use to reduce aftertaste and incidence of candidiasis. Do not swallow. 12 g 11 furosemide (Lasix) 20 MG tablet TAKE 1 TABLET BY MOUTH EVERY DAY 90 tablet 1 gabapentin (Neurontin) 300 MG capsule Take 1 capsule (300 mg) by mouth 2 times daily. 60 capsule 3 hydroCHLOROthiazide (HYDRODiuril) 25 MG tablet TAKE 1 TABLET BY MOUTH EVERY DAY IN THE MORNING 90 tablet 3 ketoconazole (NIZOral) 2 % shampoo Apply topically 2 (two) times a week. To use 2 times a week 120 mL 3 lidocaine (Lidoderm) 5 % patch Apply 1 patch topically in the morning. Remove & discard patch within 12 hours or as directed by MD. 15 patch 0 losartan (Cozaar) 100 MG tablet TAKE 1 TABLET BY MOUTH EVERY DAY IN THE MORNING 90 tablet 3 meclizine (Antivert) 25 MG tablet TAKE 1 TABLET BY MOUTH EVERY DAY NEEDED 30 tablet 4 meloxicam (Mobic) 7.5 MG tablet Take 1 tablet (7.5 mg) by mouth 2 times daily. 60 tablet 11 simvastatin (Zocor) 20 MG tablet TAKE 1 TABLET BY MOUTH AT BEDTIME 90 tablet 2 traZODone (Desyrel) 100 MG tablet TAKE 1 TABLET BY MOUTH EVERY DAY AFTER A MEAL 90 tablet 1 triamcinolone (Kenalog) 0.1 % ointment Apply topically 2 times daily. 30 g 0 No current facility-administered medications on file prior to visit. documented in this encounter Plan of Treatment Scheduled Orders Name Type Priority Associated Diagnoses Orde r Schedule RPR (Monitor) with Reflex to Titer Lab Routine Numbness of toes Expected: 08/12/2025, Expires: 08/12/2026 Methylmalonic Acid Lab Routine Numbness of toes Expected: 08/12/2025 (Approximate), Expires: 08/12/2026 Homocysteine Lab Routine Numbness of toes Expected: 08/12/2025 (Approximate), Expires: 08/12/2026 Scheduled Referrals Name Type Priority Associated Diagnoses Orde r Schedule Referral to Podiatry Outpatient Referral Routine Numbness of toes Expected: 08/12/2025 (Approximate), Expires: 08/12/2026 documented as of this encounter Procedures Procedure Name Priority Date/Time Associated Diagnosis Comments VITAMIN B12/FOLATE, SERUM PANEL Routine 08/12/2025 11:51 AM EST Numbness of toes TSH W/REFLEX TO FT4 Routine 08/12/2025 1 1:51 AM EST Numbness of toes CBC WITH AUTO DIFFERENTIAL Routine 08/12/2025 11:51 AM EST Numbness of toes HEMOGLOBIN A1C Routine 08/12/2025 11:51 AM EST Numbness of toes COMPREHENSIVE METABOLIC PANEL Routine 08/12/2025 11:51 AM EST Numbness of toes documented in this encounter Results * Vitamin B12 (Cobalamin) and Folate Panel, Serum (08/12/2025 11:51 AM EST) Vitamin B12 436 200 - 900 pg/mL [facility] Comment:NORMAL 200-900 PG/ML INDETERMINATE 160-199 PG/ML DEFICIENT < 160 PG/ML Folate 7.8 > or = 4.0 ng/mL [facility] Comment:Reference Values:> o r = 4.0 ng/mL< 4.0 ng/mL suggests folate deficiency Methotrexate, aminopterin and folinic acid(leucovorin) are chemotherapeutic agents whose molecularstructures are similar to folate; therefore, the Architectfolate assay cannot be used for patients using these drugs. Blood Venous blood specimen / Unknown 08/12/2025 11:51 AM EST 08/12/2025 11:51 AM EST us Merline Muller MD LAB BLOOD ORDERABLES Final Result Performing Organization Address [facility]/ZIP Co de Phone Number [facility] [address] [place] [phone] * TSH with Reflex to Free T4 (08/12/2025 11:51 AM EST) Pathologist [facility] TSH reflex Free T4 1.69 0.32 - 4.0 uIU/mL [facility] Blood Venous blood specimen / Unknown 08/12/2025 11:51 AM EST 08/12/2025 11:51 AM EST Merline Muller MD LAB BLOOD ORDERABLES Final Result Performing Organization Address City/[facility]/ZIP Co de Phone Number [facility] [address] [place] [phone] * (ABNORMAL) Hemoglobin A1c (08/12/2025 11:51 AM EST) Hemoglobin A1c 6.1(H) <6.0 % [facility] Comment:Hemoglobin A1C Refer ence Range Adults: 4.8 - 6.0 % Non diabetic: < 6.0 % Goal: < 7.0 %Additional Action Suggested: > 8.0 %Note: Hemoglobin A1c results are invalid for patients with abnormal amounts of HbF. Blood transfusions may impact the HbA1c concentration in the patient sample. Estimated Average Glucose 128 mg/dL [facility] Comment:eAG = Estimated ave rage glucose which is %A1C expressed asaverage glucose, using the formula of the C3O-[id number] Glucose study (ADAG), Diabetes Care, Vol.31,#8,Apr. 2007 Blood Venous blood specimen / Unknown 08/12/2025 11:51 AM EST 08/12/2025 11:51 AM EST us Merline Muller MD LAB BLOOD ORDERABLES Final Result [facility] [address] [place] [phone] [phone] * (ABNORMAL) Comprehensive Metabolic Panel (08/12/2025 11:51 AM EST) Sodium 140 135 - 145 mmol/L [facility] Potassium 4.1 3.3 - 5.1 mmol/L [facility] Chloride 105 96 - 108 mmol/L [facility] Carbon Dioxide 28 22 - 29 mmol/L [facility] Anion Gap 11(L) 12 - 20 [facility] Urea Nitrogen (BUN) 26(H) 9 - 16 mg/dL [facility] Creatinine, Serum 1.47(H) 0.5 - 1.4 mg/dL [facility] Estimated Glomerular Filt Rate 47 [facility] Comment:Chronic Kidney Disea se: Estimated GFR < 60 mL/min/[id number] Kidney Disease: Estimated GFR < 15 mL/min/1.73m2 Glucose 93 60 - 115 mg/dL [facility] Calcium 9.7 8.4 - 10.2 mg/dL [facility] Bilirubin, Total 0.5 0.0 - 1.0 mg/dL [facility] Aspartate Amino Transferase 36 5 - 37 U/L [facility] Alanine Aminotransferase 36 0 - 40 U/L [facility] Total Protein 7.6 6.5 - 8.0 g/dL [facility] Albumin Level 4.3 3.5 - 5.0 g/dL [facility] Alkaline Phosphatase 42 39 - 117 U/L [facility] Blood Venous blood specimen / Unknown 08/12/2025 11:51 AM EST 08/12/2025 11:51 AM EST us Merline Muller MD LAB BLOOD ORDERABLES Final Result [facility] [address] [place], [place] [phone] * (ABNORMAL) CBC auto differential (08/12/2025 11:51 AM EST) White Blood Count 7.3 4.8 - 10.8 X10*3/uL [facility] Red Blood Count 4.71 4.60 - 5.80 X10*6/uL [facility] Hemoglobin 13.5(L) 14.0 - 18.0 g/dl [facility] Hematocrit 42.7 42.0 - 52.0 % [facility] Mean Corpuscular Volume 90.7 80.0 - 98.0 fL [facility] Mean Corpuscular Hemoglobin 28.7 27.0 - 33.0 pg [facility] Mean Corpuscular HGB Conc 31.6 31.0 - 36.0 g/dl [facility] Red Cell Distribution Width 13.6 11.0 - 16.0 % [facility] Platelet Count 245 160 - 400 X10*3/uL [facility] Mean Platelet Volume 9.7 9.4 - 12.4 fL [facility] Neutrophils Percent Auto 54.5 45 - 73 % [facility] Imm Gran Pct Auto 0.3 0.0 - 0.4 % [facility] Lymphocytes Percent Auto 25.2 20 - 40 % [facility] Monocytes Percent Auto 8.3 2 - 11 % [facility] Eosinophils Percent Auto 10.9(H) 0 - 4 % [facility] Basophils Percent Auto 0.8 0 - 2 % [facility] NRBC Pct Auto 0.0 0.0 - 0.2 /100WBC [facility] Neutrophils Absolute Auto 4.0 2.0 - 8.3 x10*3/uL [facility] Imm Gran Abs Auto 0.02 0.00 - 0.03 X10*3/uL [facility] Lymphocytes Absolute Auto 1.8 1.2 - 4.9 X10*3/uL [facility] Monocytes Absolute Auto 0.6 0.1 - 1.2 X10*3/uL [facility] Eosinophils Absolute Auto 0.8(H) 0.0 - 0.4 X10*3/uL [facility] Basophils Absolute Auto 0.1 0.0 - 0.2 X10*3/uL [facility] NRBC Abs Auto 0.000 0.0 - 0.012 X10*3/uL [facility] Blood Venous blood specimen / Unknown 08/12/2025 11:51 AM EST 08/12/2025 11:51 AM EST Merline Muller MD LAB BLOOD ORDERABLES Final Result Performing Organization Address City/State/[facility] Co de Phone Number [facility] [address] [place] [phone] documented in this encounter Visit Diagnoses Diagnosis Numbness of toes- Primary Disturbance of skin sensation documented in this encounter Additional Health Concerns Assessment Noted Time PHQ-9 Depression Total Score: 4 02/15/20 23 10:15 AM EDT documented as of this encounter Care Teams Emergency Vehicle Dispatcher Relationship Specialty Start Date End Date Primo Block MD [address] [place] [phone] PCP - General Internal Medicine 06/29/25 documented as of this encounter
[2025-08-12 11:53] LABS: MANUAL DIFF FLAG NO
[2025-08-12 12:25] LABS: Hematocrit 42.7 % (42.0-52.0); Hemoglobin 13.5 g/dl (14.0-18.0); Imm Gran Abs Auto 0.02 X10*3/uL (0.00-0.03); Imm Gran Pct Auto 0.3 % (0.0-0.4); Lymphocytes Absolute Auto 1.8 X10*3/uL (1.2-4.9); Mean Corpuscular HGB Conc 31.6 g/dl (31.0-36.0); Mean Corpuscular Hemoglobin 28.7 pg (27.0-33.0); Mean Corpuscular Volume 90.7 fL (80.0-98.0); NRBC Abs Auto 0.000 X10*3/uL (0.0-0.012); NRBC Pct Auto 0.0 /100WBC (0.0-0.2); Platelet Count 245 X10*3/uL (160-400); Red Blood Count 4.71 X10*6/uL (4.60-5.80); White Blood Count 7.3 X10*3/uL (4.8-10.8)
[2025-08-12 13:44] LABS: Alanine Aminotransferase 36 U/L (0-40); Albumin Level 4.3 g/dL (3.5-5.0); Alkaline Phosphatase 42 U/L (39-117); Anion Gap 11 (12-20); Aspartate Amino Transferase 36 U/L (5-37); Blood Urea Nitrogen 26 mg/dL (9-16); Calcium 9.7 mg/dL (8.4-10.2); Carbon Dioxide 28 mmol/L (22-29); Chloride 105 mmol/L (96-108); Estimated Glomerular Filt Rate 47; Potassium 4.1 mmol/L (3.3-5.1); Sodium 140 mmol/L (135-145); Total Protein 7.6 g/dL (6.5-8.0)
[2025-08-12 14:48] LABS: Folate 7.8 ng/mL (> or = 4.0); Vitamin B12 436 pg/mL (200-900)
--- OUTSIDE RECORDS SUMMARY | 2025-08-12 22:43 | XMS_ITS | Encounter Summary ---
Author Organization [employer] Address 75 [facility] 7t [place] [address] Care Team Providers Care Scrap Baller Name Role Phone Dayanna Smith MD Primary Care Provider [phone] Primo Block MD Primary Care Prov ider Reason for Visit * Reason Comments Med Refill Encounter Details Date Type Department Care Team ([facility] st Contact Info) Description 05/31/2023 Refill [facility] CH[facility] MED & PEDS [address] [place], [place] [phone] Tate Neff MD [address] [place] [address] Acute pain of right shoulder Social History [...] documented as of this encounter Care Teams Scrap Baller Relationship Specialty Start Date End Date Dayanna Smith MD [address] [place] [phone] PCP - General Family Medicine 07/28/15 06/28/25 Primo Block MD [address] [place] [phone] PCP - General Internal Medicine 06/29/25 documented as of this encounter
--- OUTSIDE RECORDS SUMMARY | 2025-08-12 22:43 | XMS_ITS | Encounter Summary ---
Author Organization [employer] Address [address] [facility] 7t [place] [address] Care Team Providers Care Optometrist Name Role Phone Dayanna Smith MD Primary Care Provider [phone] Primo Block MD Primary Care Prov ider Reason for Visit * Reason Comments Med Refill Encounter Details Date Type Department Care Team (Late st Contact Info) Description 04/26/[address] [facility] MED & PEDS [address] [place], [place] [phone] Dayanna Smith MD [address] [place] [address] Social History Tobacco Use Types Packs/Day Years [...] documented as of this encounter Care Teams Optometrist Relationship Specialty Start Date End Date Dayanna Smith MD [address] [place] [address] PCP - General Family Medicine 07/28/15 06/28/25 Primo Block MD [address] [place] [address] PCP - General Internal Medicine 06/29/25 documented as of this encounter
--- OUTSIDE RECORDS SUMMARY | 2025-08-12 22:43 | XMS_ITS | Encounter Summary ---
Author Organization [employer] Address [address] [facility] 7t [place] [address] Care Team Providers Care Finance Specialist Name Role Phone Dayanna Smith MD Primary Care Provider [phone] Primo Block MD Primary Care Prov ider Reason for Visit * Reason Comments Med Change Request Encounter Details Date Type Department Care Team ([facility] st Contact Info) Description 06/25/2025 Refill [facility] MED & PEDS [address] [place], [place] [phone] Primo Block MD 505 [place], [place] [phone] Mild intermittent asthma without complication Social History [...] documented as of this encounter Care Teams Finance Specialist Relationship Specialty Start Date End Date Dayanna Smith MD [address] [place] [address] PCP - General Family Medicine 07/28/15 06/28/25 Primo Block MD [address] [place] [address] PCP - General Internal Medicine 06/29/25 documented as of this encounter
--- OUTSIDE RECORDS SUMMARY | 2025-08-12 22:43 | XMS_ITS | Encounter Summary ---
Author Organization [employer] Address 75 [facility] 7t [place] [address] Care Team Providers Care Piece Dyeing Machine Tender Name Role Phone Dayanna Smith MD Primary Care Provider [phone] Primo Block MD Primary Care Prov ider Reason for Visit * Reason Comments Med Refill Encounter Details Date Type Department Care Team (Late st Contact Info) Description 04/26/2023 Refill [facility] MED[facility]INE [address] [place] [address] Dayanna Smith MD [address] [place], [place] [phone] Hypercholesterolemia Social History Tobacco Use Types Packs/Day [...] documented as of this encounter Care Teams Piece Dyeing Machine Tender Relationship Specialty Start Date End Date Dayanna Smith MD [address] [place] [address] PCP - General Family Medicine 07/28/15 06/28/25 Primo Block MD [address] [place] [address] PCP - General Internal Medicine 06/29/25 documented as of this encounter
--- OUTSIDE RECORDS SUMMARY | 2025-08-12 22:43 | XMS_ITS | Encounter Summary ---
Author Organization [employer] Address 75 [facility] 7t [place] [address] Care Team Providers Care Associate Software Application Engineer Name Role Phone Dayanna Smith MD Primary Care Provider [phone] Primo Block MD Primary Care Prov ider Encounter Details Date Type Department Care Team ([facility] st Contact Info) Description 03/06/2023 Orders Only [facility] CHC MED & PEDS [address] [place] [address] Rylie Weathers LPN Social History Tobacco Use [...] as of this encounter Care Teams Associate Software Application Engineer Relationship Specialty Start Date End Date Dayanna Smith MD [address] [place] [address] PCP - General Family Medicine 07/28/15 06/28/25 Primo Block MD [address] [place] [address] PCP - General Internal Medicine 06/29/25 documented as of this encounter
--- OUTSIDE RECORDS SUMMARY | 2025-08-12 22:43 | XMS_ITS | Encounter Summary ---
Author Organization [employer] Address 75 [facility] 7t [place] [address] Care Team Providers Care Teacher Advisor Name Role Phone Dayanna Smith MD Primary Care Provider [phone] Primo Block MD Primary Care Prov ider Reason for Visit * Reason Comments Med Refill Encounter Details Date Type Department Care Team (Late st Contact Info) Description 10/04/2024 Refill [facility] CH[facility] MED & PEDS 505 [place], [place] [phone] Dayanna Smith MD 505 [place] [address] Social History Tobacco Use Types Packs/Day Years [...] documented as of this encounter Care Teams Teacher Advisor Relationship Specialty Start Date End Date Dayanna Smith MD [address] [place] [address] PCP - General Family Medicine 07/28/15 06/28/25 Primo Block MD [address] [place] [address] PCP - General Internal Medicine 06/29/25 documented as of this encounter
--- OUTSIDE RECORDS SUMMARY | 2025-08-12 22:43 | XMS_ITS | Encounter Summary ---
Author Organization [employer] Address [address] [place] [address] 7t [place] [address] Care Team Providers Care Dispensing Lead Name Role Phone Dayanna Smith MD Primary Care Provider [phone] Primo Block MD Primary Care Prov ider Reason for Visit * Reason Comments Med Change Request Encounter Details Date Type Department Care Team (Late st Contact Info) Description 05/31/2023 Refill [facility] [address] [place] [address] [phone] Merline Carrion MD [address] [place] [address] Social History Tobacco Use Types Packs/Day Years [...] documented as of this encounter Care Teams Dispensing Lead Relationship Specialty Start Date End Date Dayanna Smith MD [address] [place] [address] PCP - General Family Medicine 07/28/15 06/28/25 Primo Block MD [address] [place] [address] PCP - General Internal Medicine 06/29/25 documented as of this encounter
--- OUTSIDE RECORDS SUMMARY | 2025-08-12 22:43 | XMS_ITS | Encounter Summary ---
Author Organization [employer] Address 75 [facility] 7t [place] [address] Care Team Providers Care Investment Banking Associate Name Role Phone Dayanna Smith MD Primary Care Provider [phone] Primo Block MD Primary Care Prov ider Encounter Details Date Type Department Care Team (Late st Contact Info) Description 02/26/2023 Orders Only [facility] MEDICINE [address] [place] [address] Yee Abarca LPN Social History Tobacco Use [...] documented as of this encounter Care Teams Investment Banking Associate Relationship Specialty Start Date End Date Dayanna Smith MD [address] [place] [address] PCP - General Family Medicine 07/28/15 06/28/25 Primo Block MD [address] [place] [address] PCP - General Internal Medicine 06/29/25 documented as of this encounter
--- OUTSIDE RECORDS SUMMARY | 2025-08-12 22:43 | XMS_ITS | Encounter Summary ---
Author Organization [employer] Address [address] [facility] 7t [place] [address] Care Team Providers Care Engraving Patternmaker Name Role Phone Dayanna Smith MD Primary Care Provider Primo Block MD Primary Care Prov ider Reason for Referral * Imaging (Routine) - Closed Specialty Diagnoses / Procedures Referred By Ranjit orantes Referred To Contact Cardiology Diagnoses Bilateral leg edema Procedures VASC US Lower Extremity Venous Duplex Bilateral Dayanna Smith MD [address] [place] [address] Phone: tel: fax: [address] Phone: tel: fax: Referral ID Status Reason Start Date Expiration Date V isits Requested Visits Authorized [id number] Closed Perform Procedure 04/01/2025 04/01/2026 1 1 Encounter Details Date Type Department Care Team (Late st Contact Info) Description 04/01/2025 Orders Only [facility] CHC MED & PEDS [address] [place], [place] [phone] Dayanna Smith MD [address] [place], [place] [phone] Bilateral leg edema (Primary Dx) Social History [...] Procedure Name Priority Date/Time Associated Diagnosis Comments [facility] US LOWER EXTREMITY VENOUS DUPLEX BILATERAL Routine 04/01/2025 10:55 AM EDT Bilateral leg edema documented in this encounter Results * VAS US Lower Extremity Venous Duplex Bilateral (04/01/2025 10:55 AM EDT) 04/01/2025 10:5 5 AM EDT Narrative [facility] - 04/01/2025 11:41 AM EDT [address] [address] Ultrasound Report Signed Patient: David Joe MR#: [id number] : 1955 Acct:[id number] Age/Sex: 69 / M ADM Date: 04/01/25 Loc: HO.US Attending Dr: Dayanna Smith MD Ordering Physician: Dayanan Smith MD Date of Service: 04/01/25 Procedure(s): US venous duplex LE BI Accession Number(s): [id number] cc: Dayanna Smith MD EXAMINATION: US TRIPLEX [...] 04/01/25 1138 DD/ 1055 TD/TT: 04/01/25 1112 Recapper: Procedure Note Donotuseinterpreter, Image - 04/01/2025 [place] [address] Ultrasound Report Signed Patient: Corey Joe#: [id number] : 5Acct:[id number] Age/Sex: 69 / MADM Date: 04/01/25 Loc: HO.US Attending Dr: Dayanna Smith MD Ordering Physician: Dayanna Smith MD Date of Service: 04/01/25 Procedure(s): US venous duplex LE BI Accession Number(s): [id number] cc: Dayanna Smith MD EXAMINATION: US TRIPLEX [...] 04/01/25 1138 DD/ 1055 TD/TT: 04/01/25 1112 Recapper: us Dayanna Smith MD CV VASCULAR PROCEDURES Final Res ult [facility] [address] [place] [address] documented in this encounter Visit Diagnoses Diagnosis Bilateral leg edema- Primary Edema documented in this encounter Additional Health Concerns Assessment Noted Time PHQ-9 Depression Total Score: 4 02/15/20 23 10:15 AM EDT documented as of this encounter Care Teams Engraving Patternmaker Relationship Specialty Start Date End Date Dayanna Smith MD [address] [place] [address] PCP - General Family Medicine 07/28/15 06/28/25 Primo Block MD [address] [place] [address] PCP - General Internal Medicine 06/29/25 documented as of this encounter
--- OUTSIDE RECORDS SUMMARY | 2025-08-12 22:43 | XMS_ITS | Clinical Summary ---
Author Organization [employer] Address [address] [facility] 7[address] [place] [address] Care Team Providers Care Sludge Mill Operator Name Role Phone Primo Block MD Primary Care Prov ider Allergies No known active allergies Medications meclizine (Antivert) 25 MG tablet TAKE 1 TABLET BY MOUTH EVERY DAY NEEDED 30 tablet 4 03/06/20 23 Active lidocaine (Lidoderm) 5 % patch Apply 1 patch topically in the morning. Remove & discard patch within 12 hours or as directed by . 15 patch 05/31/20 23 Active Blood Pressure kit 1 kit in the morning. 1 kit 05/31/20 23 Active famotidine (Pepcid) 40 MG/5ML suspension Take 5 mL (40 mg) by mouth at bedtime. 150 mL 2 11/07/19 24 Active Diclofenac Sodium 1 % gel APPLY TOPICALLY IF NEEDED EACH DAY FOR RIGHT ARM PAIN BELOW SHOULDER 100 g 05/27/20 24 Active simvastatin (Zocor) 20 MG tablet TAKE 1 TABLET BY MOUTH AT BEDTIME 90 tablet 2 11/04/19 25 Active hydroCHLOROthiaz poonam (HYDRODiuril) 25 MG tablet TAKE 1 TABLET BY MOUTH EVERY DAY IN THE MORNING 90 tablet 3 12/06/19 25 Active albuterol 108 (90 Base) MCG/ACT inhalerIndicatio ns:Uncomplicated asthma, unspecified asthma severity, unspecified whether persistent INHALE 2 PUFFS INTO LUNGS FOUR TIMES A DAY NEEDED 18 g 11 12/24/19 25 Active ketoconazole (NIZOral) 2 % shampooIndicatio ns:Seborrheic dermatitis Apply topically 2 (two) times a week. To use 2 times a week 120 mL 3 01/16/20 25 Active triamcinolone (Kenalog) 0.1 % ointmentIndicati ons:Venous stasis dermatitis Apply topically 2 times daily. 30 g 03/05/20 25 Active Acetaminophen 500 MG capsule Take one to two tablets as needed for fever or pain every 6 hours 30 capsule 04/06/20 25 Active traZODone (Desyrel) 100 MG tabletIndication s:Depression, unspecified depression type TAKE 1 TABLET BY MOUTH EVERY DAY AFTER A MEAL 90 tablet 1 05/26/20 25 Active losartan (Cozaar) 100 MG tablet TAKE 1 TABLET BY MOUTH EVERY DAY IN THE MORNING 90 tablet 3 06/01/20 25 Active meloxicam (Mobic) 7.5 MG tablet Take 1 tablet (7.5 mg) by mouth 2 times daily. 60 tablet 11 06/23/20 25 026 Active gabapentin (Neurontin) 300 MG capsuleIndicatio ns:Pain Take 1 capsule (300 mg) by mouth 2 times daily. 60 capsule 3 06/25/20 25 Active fluticasone-salm eterol (Advair) 230-21 MCG/ACT inhalerIndicatio ns:Mild intermittent asthma without complication Inhale 2 puffs in the morning and at bedtime. Rinse mouth with water after use to reduce aftertaste and incidence of candidiasis. Do not swallow. 12 g 11 06/25/20 25 Active furosemide (Lasix) 20 MG tablet TAKE 1 TABLET BY MOUTH EVERY DAY 90 tablet 1 07/14/20 25 Active furosemide (Lasix) 20 MG tablet TAKE 1 TABLET BY MOUTH EVERY DAY 90 tablet 04/15/20 25 025 Discontinued clotrimazole (Lotrimin) 1 % creamIndications :Tinea cruris Apply topically 2 times daily for 28 days. 30 g 5 06/23/20 25 025 Active Problems Problem Noted Date Diagnosed Date Numbness of toes 08/12/2025 Lower extremity edema 06/25/2025 Assessment & Plan [...] use of Q-tips or other ear device production or plant engineer. Use Debrox eardrops 4 times per day [...] Center 11/28/2023 11:00 AM Dayanna Smith MD [facility] I have also referred him to [...] for orthopedic done by his PCP to [facility] vendor management specialist to check status of referral -advised [...] his son -David Joe Jr to # [phone] -was not able to reach but left [...] Encounters Date Type Department Care Team Description 08/12/2025 10:40 AM EST Office Visit [facility] [address] [place] [phone] Merline Cruz MD Numbness of toes (Primary Dx) 08/12/2025 Travel 07/13/2025 Refill [facility] [address] [place] [phone] Dayanna Smith MD 07/09/2025 Results Follow-Up [facility] [address] [place] [address] Shanelle Coello MD US VENOUS DUPLEX LE RT 07/07/2025 10:00 AM EDT Office Visit [facility] [address] [place] [phone] Shanelle Coello MD Right calf pain (Primary Dx) 07/07/2025 Orders Only [facility] [address] [place] [address] Shanelle Colelo MD 07/07/2025 Travel 07/06/2025 Telephone [facility] [address] [address] Primo Block MD Cologuard Outreach Unreturned Kit Reminder 06/25/2025 1:45 PM EDT Telemedicine [facility] [address] [place] [address] Primo Block MD Essential hypertension (Primary Dx); Pain; Mild intermittent asthma without complication; Lower extremity edema 06/25/2025 Refill [facility] [address] [place] [address] Primo Block MD Mild intermittent asthma without complication 06/25/2025 Travel 06/23/2025 1:40 PM EDT Office Visit [facility] [address] [place] [phone] Mario Ho MD Tinea cruris (Primary Dx); Impacted cerumen of left ear 06/23/2025 Travel 06/23/2025 Telephone [facility] [address] [place] [address] Dayanna Smith MD Walk-In 06/23/2025 Telephone [facility] [address] [place] [address] Dayanna Smith MD Med Refill 06/23/2025 Refill [facility] [address] [facility] [place] [address] Dayanna Smith MD Pain 05/31/2025 Refill [facility] [address] [facility] [place] [address] Dayanna Smith MD 05/24/2025 Refill [facility] [address] [place] [address] Dayanna Smith MD Depression, unspecified depression type from Last 3 Months Immunizations Immunization Administration [...] 08/12/2025 10:3 8 AM EST Oxygen Saturation 96% 07/07/2025 10: 30 AM EDT Inhaled Oxygen Concentration - - Weight 95.2 kg (209 lb 12.8 oz) 025 10:38 AM EST Height 175.3 cm (5' 9 ) 08/12/2025 10:3 8 AM EST Body Mass Index 30.98 08/12/2025 10:38 AM EST Plan of Treatment Health Maintenance Due Date [...] Screening 04/10/2026 04/10/2025 Tobacco Screening 07/07/2026 07/07/2025 Diabetes: Hemoglobin A1C 08/12/2026 08/12/2025 DTaP/Tdap/Td Vaccines (3 - Td or Tdap) [...] toes TSH W/REFLEX TO FT4 Routine 08/12/2025 11:51 AM EST Numbness of toes HEMOGLOBIN A1C Routine 08/12/2025 11:51 AM EST Numbness of toes COMPREHENSIVE METABOLIC PANEL Routine 08/12/2025 11:51 AM EST Numbness of toes CBC WITH AUTO DIFFERENTIAL Routine 08/12/2025 11:51 AM EST Numbness of toes US VENOUS DUPLEX LE RT Routine 07/07/2025 4:42 PM EDT LIPID PANEL, STANDARD Routine 04/15/2024 10:08 AM EDT Essential hypertension Pure hypercholesterolemia from Last 3 Months or Most Recently Relevant to Health Maintenance Results * Vitamin B12 (Cobalamin) and Folate Panel, Serum (08/12/2025 11:51 AM EST) Vitamin B12 436 200 - 900 pg/mL [facility] Comment:NORMAL 200-900 PG/ML INDETERMINATE 160-199 PG/ML DEFICIENT < 160 PG/ML Folate 7.8 > or = 4.0 ng/mL [facility] Comment:Reference Values:> o r = 4.0 ng/mL< 4.0 ng/mL suggests folate deficiency Methotrexate, aminopterin and folinic acid(leucovorin) are chemotherapeutic agents whose molecularstructures are similar to folate; therefore, the Architectfolate assay cannot be used for patients using these drugs. Blood Venous blood specimen / Unknown 08/12/2025 11:51 AM EST 08/12/2025 11:51 AM EST us Merline Muller MD LAB BLOOD ORDERABLES Final Result [facility] [address] [place] [phone] * TSH with Reflex to Free T4 (08/12/2025 11:51 AM EST) TSH reflex Free T4 1.69 0.32 - 4.0 uIU/mL [facility] Blood Venous blood specimen / Unknown 08/12/2025 11:51 AM EST 08/12/2025 11:51 AM EST Merline Muller MD LAB BLOOD ORDERABLES Final Result [facility] [address] [place] [address] [phone] * (ABNORMAL) CBC auto differential (08/12/2025 11:51 AM EST) White Blood Count 7.3 4.8 - 10.8 X10*3/uL [facility] Red Blood Count 4.71 4.60 - 5.80 X10*6/uL [facility] Hemoglobin 13.5(L) 14.0 - 18.0 g/dl [facility] Hematocrit 42.7 42.0 - 52.0 % [facility] Mean Corpuscular Volume 90.7 80.0 - 98.0 fL [facility] Mean Corpuscular Hemoglobin 28.7 27.0 - 33.0 pg [facility] Mean Corpuscular HGB Conc 31.6 31.0 - 36.0 g/dl [facility] Red Cell Distribution Width 13.6 11.0 - 16.0 % [facility] Platelet Count 245 160 - 400 X10*3/uL [facility] Mean Platelet Volume 9.7 9.4 - 12.4 fL [facility] Neutrophils Percent Auto 54.5 45 - 73 % [facility] Imm Gran Pct Auto 0.3 0.0 - 0.4 % [facility] Lymphocytes Percent Auto 25.2 20 - 40 % [facility] Monocytes Percent Auto 8.3 2 - 11 % [facility] Eosinophils Percent Auto 10.9(H) 0 - 4 % [facility] Basophils Percent Auto 0.8 0 - 2 % [facility] NRBC Pct Auto 0.0 0.0 - 0.2 /100WBC [facility] Neutrophils Absolute Auto 4.0 2.0 - 8.3 x10*3/uL [facility] Imm Gran Abs Auto 0.02 0.00 - 0.03 X10*3/uL [facility] Lymphocytes Absolute Auto 1.8 1.2 - 4.9 X10*3/uL [facility] Monocytes Absolute Auto 0.6 0.1 - 1.2 X10*3/uL [facility] Eosinophils Absolute Auto 0.8(H) 0.0 - 0.4 X10*3/uL [facility] Basophils Absolute Auto 0.1 0.0 - 0.2 X10*3/uL [facility] NRBC Abs Auto 0.000 0.0 - 0.012 X10*3/uL [facility] Blood Venous blood specimen / Unknown 08/12/2025 11:51 AM EST 08/12/2025 11:51 AM EST Merline Muller MD LAB BLOOD ORDERABLES Final Result [facility] [address] [place] [address] [phone] * (ABNORMAL) Hemoglobin A1c (08/12/2025 11:51 AM EST) Hemoglobin A1c 6.1(H) <6.0 % [facility] Comment:Hemoglobin A1C Refer ence Range Adults: 4.8 - 6.0 % Non diabetic: < 6.0 % Goal: < 7.0 %Additional Action Suggested: > 8.0 %Note: Hemoglobin A1c results are invalid for patients with abnormal amounts of HbF. Blood transfusions may impact the HbA1c concentration in the patient sample. Estimated Average Glucose 128 mg/dL [facility] Comment:eAG = Estimated ave rage glucose which is %A1C expressed asaverage glucose, using the formula of the [id number]-[id number] Glucose study (ADAG), Diabetes Care, Vol.31,#8,Apr. 2007 Blood Venous blood specimen / Unknown 08/12/2025 11:51 AM EST 08/12/2025 11:51 AM EST us Merline Muller MD LAB BLOOD ORDERABLES Final Result [facility] [address] [place] [phone] * (ABNORMAL) Comprehensive Metabolic Panel (08/12/2025 11:51 AM EST) Sodium 140 135 - 145 mmol/L [facility] Potassium 4.1 3.3 - 5.1 mmol/L [facility] Chloride 105 96 - 108 mmol/L [facility] Carbon Dioxide 28 22 - 29 mmol/L [facility] Anion Gap 11(L) 12 - 20 [facility] Urea Nitrogen (BUN) 26(H) 9 - 16 mg/dL [facility] Creatinine, Serum 1.47(H) 0.5 - 1.4 mg/dL [facility] Estimated Glomerular Filt Rate 47 [facility] Comment:Chronic Kidney Disea se: Estimated GFR < 60 mL/min/[id number] Kidney Disease: Estimated GFR < 15 mL/min/1.73m2 Glucose 93 60 - 115 mg/dL [facility] Calcium 9.7 8.4 - 10.2 mg/dL [facility] Bilirubin, Total 0.5 0.0 - 1.0 mg/dL [facility] Aspartate Amino Transferase 36 5 - 37 U/L [facility] Alanine Aminotransferase 36 0 - 40 U/L [facility] Total Protein 7.6 6.5 - 8.0 g/dL [facility] Albumin Level 4.3 3.5 - 5.0 g/dL [facility] Alkaline Phosphatase 42 39 - 117 U/L [facility] Blood Venous blood specimen / Unknown 08/12/2025 11:51 AM EST 08/12/2025 11:51 AM EST us Merline Muller MD LAB BLOOD ORDERABLES Final Result [facility] [address] [place] [phone] * US VENOUS DUPLEX LE RT (07/07/2025 4:42 PM EDT) Anatomical Region Laterality Modality Abdomen Ultrasound 07/07/2025 4:42 PM EDT Narrative 07/07/2025 5:07 PM EDT [address] [address] Ultrasound Report Signed Patient: David Joe MR#: [id number] : 1955 Acct:[id number] Age/Sex: 69 / M ADM Date: 07/07/25 Loc: .US Attending Dr: Shanelle Coello MD Ordering Physician: Shanelle Coello MD Date of Service: 07/07/25 Procedure(s): US venous duplex LE RT Accession Number(s): [id number] cc: Dayanna Smith MD; Shanelle Coello MD [...] Troy Santana MD 07/07/2025 05:04 PM EDT Dictated By: Troy Santana MD Signed By: <Electronically signed by Troy Santana MD in OV> 07/07/25 1704 DD/ 1642 TD/TT: 07/07/25 1650 Live Games Dealer: Procedure Note Donotuseinterpreter, Image - 07/07/[address] [place] [address] Ultrasound Report Signed Patient: Corey Joe#: [id number] : 5Acct:[id number] Age/Sex: 69 / MADM Date: 07/07/25 Loc: HO.US Attending Dr: Shanelle Coello MD Ordering Physician: Shanelle Coello MD Date of Service: 07/07/25 Procedure(s): US venous duplex LE RT Accession Number(s): [id number] cc: Dayanna Smith MD; Shanelle Coello MD [...] Troy Santana MD 07/07/2025 05:04 PM EDT Dictated By: Troy Santana MD Signed By: <Electronically signed by Troy Santana MD in OV> 07/07/25 1704 DD/ 1642 TD/TT: 07/07/25 1650 Live Games Dealer: Shanelle Coello MD [facility] [place] PROCEDURES Final Resul t * (ABNORMAL) Lipid Panel, Standard (04/15/2024 10:08 AM EDT) Triglycerides 103 <150 mg/dL [facility] Comment:Desirable Triglyceri de: less than 150 mg/dLBorderline High Triglyceride 150-199 mg/dLHigh Triglyceride: 200-499 mg/dLVery High Triglyceride: greater than or equal to 5OO mg/dL Cholesterol 190 <200 mg/dL [facility] Comment:Desirable Cholestero l: less than 200 mg/dLBorderline High Cholesterol: 200-239 mg/dLHigh Cholesterol: greater than 239 mg/dL LDL Cholesterol Calculated 102(H) <100 mg/dL [facility] Comment:Desirable LDL: less than 100 mg/dLNear Optimal/Above Optimal LDL: 110- 129 mg/dLBorderline High LDL: 130-159 mg/dLHigh LDL: 160-189 mg/dLVery High LDL: greater than or equal to 190 mg/dL HDL Cholesterol 68 >40 mg/dL [facility] Comment:Desirable HDL: great er than 40 mg/dL Note: This HDL assay may give artificially low results in patients with liver disease. Blood Venous blood specimen / Unknown 04/15/2024 10:08 AM EDT 04/15/2024 1:58 PM EDT us Dayanna Smith MD LAB BLOOD ORDERABLES Final Resul t [facility] [address] [place] [address] [phone] from Last 3 Months or Most Recently Relevant to Health Maintenance Insurance [facility] STANDARD [facility] DUAL COMPLETE Care Teams Sludge Mill Operator Relationship Specialty Start Date End Date RenaePrimo Flores MD [address] [place] [address] [place] [phone] PCP - General Internal Medicine 06/29/25
--- OUTSIDE RECORDS SUMMARY | 2025-08-12 22:43 | XMS_ITS | Clinical Summary ---
Author Organization [facility] Facility Address [address] [place] [address] Care Team Providers Care Social Media Marketing Manager Name Role Phone Dayanna Smith MD Primary Care Provider [phone] Medications albuterol HFA (PROVENTIL HFA;VENTOLIN HFA) 108 [...] patient's age to complete this topic Insurance [facility] Medicare [facility] Medicare Care Teams Social Media Marketing Manager Relationship Specialty Start Date End Date Dayanna Smith MD [address] [place] [phone] PCP - General Family Medicine 05/08/22
--- OUTSIDE RECORDS SUMMARY | 2025-08-12 22:43 | XMS_ITS | Encounter Summary ---
Author Organization [employer] Address [address] [facility] [address] [place] [address] Care Team Providers Care Laundry Tub Maker Name Role Phone Primo Block MD Primary Care Prov ider Encounter Details Date Type Department Care Team (Latest Contact Info) Description 08/12/2025 Travel Social History Tobacco Use Types Packs/Day [...] documented as of this encounter Care Teams Laundry Tub Maker Relationship Specialty Start Date End Date Primo Block MD [address] [place] [phone] PCP - General Internal Medicine 06/29/25 documented as of this encounter
== END 2025-08-12 11:38 | disposition home or self-care (01) ==
LOC: HO.LAB 11:37
PROVIDERS: Internal Medicine; PCP Student in an Organized Health Care Education/Training Program; Visit Provider Student in an Organized Health Care Education/Training Program
DX: R20.0 Anesthesia of skin (principal); Z13.1 Encounter for screening for diabetes mellitus; Z13.6 Encounter for screening for cardiovascular disorders
CPT/HCPCS: 36415; 80053; 82607; 82746; 83036; 83090; 83921; 84443; 85025; 86592